=== PATIENT | female | born 1960 | race Caucasian/White ===

== ENCOUNTER → 2017-11-25 09:59 | Outpatient (CLI) | payer OTHER, SELFPAY ==
--- NOTE | 2017-11-25 10:04 | CDU_ITS ---
Reason For Study: bruit Rt. Velocities/BP Lt. Velocities/BP Prox CCA 113/16.4 cm/sec. Prox CCA 101/21.1 cm/sec. Mid CCA 113/18.8 cm/sec. Mid CCA 104/26.4 cm/sec. Dist CCA 104/21.7 cm/sec. Dist CCA 80.9/21.7 cm/sec. Prox ICA 64.5/17.6 cm/sec. Prox ICA 62.1/23.5 cm/sec. Mid ICA 79.7/23.5 cm/sec. Mid ICA 86.8/30.5 cm/sec. Dist ICA 68.6/22.3 cm/sec. Dist ICA 95.0/34.0 cm/sec. Rt. ICA/CCA = .7. Lt. ICA/CCA = .9. Prox ECA 123/9.97 cm/sec. Prox ECA 80.9/9.97 cm/sec. Rt. Vert. 56.9/15.8 cm/sec. Lt. Vert. 51.6/9.97 cm/sec. Right Extracranial There is intimal thickening but no significant atherosclerotic plaque noted in the right common carotid artery. There is intimal thickening but no significant atherosclerotic plaque noted in the right internal carotid artery. There is intimal thickening but no significant atherosclerotic plaque noted in the right external carotid artery. Antegrade flow is noted in the right vertebral artery. Left Extracranial There is intimal thickening but no significant atherosclerotic plaque noted in the left common carotid artery. There is intimal thickening but no significant atherosclerotic plaque noted in the left internal carotid artery. There is intimal thickening but no significant atherosclerotic plaque noted in the left external carotid artery. Antegrade flow is noted in the left vertebral artery. Procedure Carotid Duplex [id number]. The exam was diagnostic. Exam performed in department. Interpretation Summary Mild (<50%) stenosis right extracranial internal carotid. Mild (<50%) stenosis left extracranial internal carotid. Flow within the vertebral arteries is antegrade bilaterally. Ordering Physician: Gema Hadley Performed By: Aguila Cornejo RVT
== END ==
PROVIDERS: Family Provider Student in an Organized Health Care Education/Training Program; PCP Student in an Organized Health Care Education/Training Program; Visit Provider Physician Assistant Medical
DX: R09.89 Other specified symptoms and signs involving the circulatory and respiratory systems (principal)
CPT/HCPCS: 93880

== ENCOUNTER 2018-03-14 09:57 | Emergency (ER) | payer OTHER, SELFPAY ==
[2018-03-14 09:58] VITALS: BP 161/79; PULSE 64; RESP 18; TEMP 36.9; O2SAT 100; BMI 27.5
--- NOTE | 2018-03-14 10:15 | EKG12_ITS ---
Test Reason : CP Blood Pressure : / mmHG Vent. Rate : 059 BPM Atrial Rate : 059 BPM P-R Int : 160 ms QRS Dur : 130 ms QT Int : 454 ms P-R-T Axes : 052 016 002 degrees QTc Int : 449 ms Sinus bradycardia Right bundle branch block Abnormal ECG Confirmed by ESTEFANY LOMELI, REGINO ([id number]), staff editor TAMMIE MORSE ([id number]) on 03/18/2018 1:05:47 PM Referred By: NANCY Confirmed By:REGINO ALLISON MD
[2018-03-14 10:18] VITALS: BP 152/61; PULSE 60; RESP 12; O2SAT 100
--- NOTE | 2018-03-14 10:21 | ED.DCSUM_ITS ---
- ER Visit Summary Date of Service: 03/14/18 Chief Complaint: Chest pain History of Present Illness: The patient is a 57 F who presents with a central chest pressure. It is nonradiating. There is no significant shortness of breath or nausea vomiting. Patient states it has been constant since Wednesday. At times it seems to get worse. She states that she gets up and walks it feels better and occasionally when she lays down it gets worse. She has has had no recent infections viral or bacterial. She denies any fevers or rashes. Patient states that she had a [place] approximately 4 years ago and she had a stent placed. Patient follows cardiology fel[facility] with Dr. Kraft and she last saw him in October. Physical Examination: Afebrile vital signs are stable Gen: Well-nourished well-developed Head: Normocephalic atraumatic Eyes: Perrl EOMI ENT: TMs clear no rhinorrhea moist mucous membranes Neck: Supple no lymphadenopathy no JVD nontender CVS: Regular rate rhythm no murmurs normal S1-S2 Respiratory: No distress clear to auscultation bilaterally chest nontender Abdomen: Soft nontender nondistended normal bowel sounds no masses Back: Nontender Extremity: Nontender no edema Skin: Normal color no rash Neuro: alert orientated ?3 CN II-XII intact normal strength sensation reflexes gait cerebellar Psych: Normal affect normal mood Test Results: EKG shows a sinus bradycardia at a rate of 59 with a right bundle branch block this is unchanged from April 22, 2014. C chemistry showed a glucose of 130. Troponin d-dimer were negative. Chest x-ray negative. Emergency Department Course and Treatment: Spoke with Dr. Kraft and we arranged early follow-up for stress testing. Patient will return if worsening or concerns. Impression: 1. Chest pain This note was generated with [employer] dictation software. It may contain incorrect words, spelling, and punctuation that were not noted in review of the chart prior to signing ED Disposition - Plan for ED Patient: Chief Complaint: Chest Pain Instructions: ED Chest Pain Atypical Unkn Cause Referrals: Nathanael Cabral DO [Primary Care Provider] - 1 Week Beau Kraft MD [STAFF PHYSICIAN] - (call to arrange stress test)
[2018-03-14] MEDS: Aspirin 81 MG TAB.CHEW 324 MG PO (10:42)
[2018-03-14 10:52] LABS: Absolute Lymphocyte Count 0.91 X10^3/ul (0.83-4.51); Absolute Neutrophil Count 3.7 X10^3/uL (2.0-7.7); Basophil# 0.04 X10^3/uL; Basophil% 0.8 % (0-1); Eosinophil# 0.03 X10^3/uL; Eosinophils% 0.6 % (0-5); Hematocrit 41.8 % (37-47); Hemoglobin 14.4 g/dl (12.0-15.0); Lymphocyte # 0.91 X10^3/ul (4.0); Mean Corp Hgb Conc 34.4 g/gl (32-36); Mean Corpuscular Hgb 30.2 pg (27.0-32.0); Mean Corpuscular Volume 87.6 fL (81-99); Mean Platelet Vol. 10.3 fl (6.2-12.0); Monocyte# 0.34 X10^3/uL; Monocyte% 6.7 % (0-10); Neutrophil # 3.72 X10^3/uL (2.7-7.7); Neutrophil % 73.7 % (47-70); Platelet Count 138 K/mm3 (150-450); RBC Distribution Width CV 12.2 % (11.6-14.6); RBC Distribution Width SD 39.4 fl (35.1-43.9); Red Blood Count 4.77 M/mm3 (4.2-5.4); White Blood Count 5.1 K/mm3 (4.4-11.0)
[2018-03-14 10:53] LABS: POSITIVE COUNT NO; POSITIVE DIFFERENTIAL NO; POSITIVE MORPHOLOGY NO
--- NOTE | 2018-03-14 10:55 | RAD_ITS ---
STUDY: X-RAY CHEST REASON FOR EXAM: Female, 57 years old. Chest pain TECHNIQUE: Frontal and lateral views of the chest. COMPARISON: None. FINDINGS: The lungs are clear and expanded. There is no demonstrated pleural abnormality. Normal size heart. Normal mediastinum and chepe. Normal visualized pulmonary arteries. Normal visualized aortic arch and descending thoracic aorta. Normal visualized thoracic spine. Normal visualized ribs, clavicles, and shoulders. There is no demonstrated abnormality of the visualized soft tissue structures of the upper abdomen. RAD/Chest PA and Lateral IMPRESSION: Normal x-ray examination of the chest. Electronically Signed: Serenity Mayer MD at 11:44 EDT Tel , Service support ,
[2018-03-14 11:06] LABS: D-Dimer Quantitative (DVT/PE) < 0.27 FEU/ug/m (0.27-0.49)
[2018-03-14 11:09] LABS: Anion Gap 6 (5-15); BUN 8 mg/dL (7-18); Calcium,Total 9.3 mg/dL (8.5-10.1); Chloride 106 mmol/L (98-107); EST Glomerular Filtration Rate 77 mL/min (>60); Est Glom Filt Rate - Afr Amer 94 mL/min (>60); Estimated Creatinine Clearance 73.63 ml/min; Glucose 130 mg/dL (74-106); Sodium Level 139 mmol/L (136-145)
[2018-03-14 12:24] VITALS: BP 127/54; PULSE 58; RESP 16; O2SAT 99
[2018-03-14 12:54] VITALS: BP 122/56; PULSE 56; RESP 16; O2SAT 99
== END 2018-03-14 13:00 | disposition home or self-care (01) ==
PROVIDERS: Emergency Provider Emergency Medicine; Family Provider Student in an Organized Health Care Education/Training Program; PCP Student in an Organized Health Care Education/Training Program
DX: R07.9 Chest pain, unspecified (principal); R11.0 Nausea; I45.10 Unspecified right bundle-branch block; I25.10 Atherosclerotic heart disease of native coronary artery without angina pectoris; I25.2 Old myocardial infarction; I10 Essential (primary) hypertension; E78.00 Pure hypercholesterolemia, unspecified; Z95.5 Presence of coronary angioplasty implant and graft; Z79.82 Long term (current) use of aspirin; Z79.899 Other long term (current) drug therapy
CPT/HCPCS: 71046; 80048; 84484; 85025; 85379; 93005; 99285; A4216

== ENCOUNTER → 2018-03-22 06:29 | Outpatient (CLI) | payer OTHER, SELFPAY ==
--- NOTE | 2018-03-22 09:33 | STRESSREP ---
Stress Test Report Date: 03/22/2018 Procedure: Exercise tolerance test/imaging study Indications: Chest pain; CAD; PCI Consent: Per the patient Procedure: The patient exercised on a Nickolas protocol for 9 minutes completing Stage 3 achieving a peak heart rate of 157 bpm (97 % predicted maximal heart rate) with a peak blood pressure 180/80 mmHg and a peak MET capacity of 10 METs. The baseline ECG demonstrated normal sinus rhythm; right bundle branch block pattern. The peak exercise ECG demonstrated no obvious ECG changes. There was an isolated PVC during exercise and recovery. The functional capacity was considered good. There was no complaint of chest discomfort during exercise or recovery. The examination was discontinued secondary to dyspnea. Impression: 1. Technically adequate (percent predicted maximal heart rate greater than 85%) exercise tolerance test 2. Peak exercise ECG demonstrated no obvious ECG changes 3. There was an isolated PVC during exercise and recovery. 4. Nuclear images pending Myocardial perfusion imaging study: Technique: The patient was injected with 11.3 mCi of technetium 99m Cardiolite and subsequently rest SPECT Cardiolite nuclear imaging was obtained in the horizontal long, vertical long, and short axis views. The patient exercised on a Nickolas protocol for 9 minutes completing Stage 3 achieving a peak heart rate of 157 bpm (97 % predicted maximal heart rate) with a peak blood pressure 180/80 mmHg and a peak MET capacity of 10 METs. The patient was injected with 33.5 mCi of technetium 99m Cardiolite and subsequently stress SPECT Cardiolite nuclear imaging was obtained in the horizontal long, vertical long, and short axis views. A gated Cardiolite study at peak stress was obtained. Interpretation: Rest and stress SPECT Cardiolite nuclear imaging status post realignment, normalization, and attenuation correction, demonstrates the appearance of relative uniform tracer uptake and myocardial perfusion appearing within normal limits. There is end systolic thickening and brightening. The gated Cardiolite study demonstrates myocardial thickening and inward wall motion. The reported LVEF is 69 %. Impression: 1. Rest and stress SPECT Cardiolite nuclear imaging demonstrate relative uniform tracer uptake and myocardial perfusion appearing within normal limits. 2. The gated Cardiolite study reports an LVEF of 69 %. This note was generated with [employer] software. It may contain incorrect words, spelling, and punctuation that were not noted in checking the note before signing.
--- NOTE | 2018-03-22 09:36 | STRESSREP_ITS ---
Stress Test Report Date: 03/22/2018 Procedure: Exercise tolerance test/imaging study Indications: Chest pain; CAD; PCI Consent: Per the patient Procedure: The patient exercised on a Nickolas protocol for 9 minutes completing Stage 3 achieving a peak heart rate of 157 bpm (97 % predicted maximal heart rate) with a peak blood pressure 180/80 mmHg and a peak MET capacity of 10 METs. The baseline ECG demonstrated normal sinus rhythm; right bundle branch block pattern. The peak exercise ECG demonstrated no obvious ECG changes. There was an isolated PVC during exercise and recovery. The functional capacity was considered good. There was no complaint of chest discomfort during exercise or recovery. The examination was discontinued secondary to dyspnea. Impression: 1. Technically adequate (percent predicted maximal heart rate greater than 85% ) exercise tolerance test 2. Peak exercise ECG demonstrated no obvious ECG changes 3. There was an isolated PVC during exercise and recovery. 4. Nuclear images pending Myocardial perfusion imaging study: Technique: The patient was injected with 11.3 mCi of technetium 99m Cardiolite and subsequently rest SPECT Cardiolite nuclear imaging was obtained in the horizontal long, vertical long, and short axis views. The patient exercised on a Nickolas protocol for 9 minutes completing Stage 3 achieving a peak heart rate of 157 bpm (97 % predicted maximal heart rate) with a peak blood pressure 180/ 80 mmHg and a peak MET capacity of 10 METs. The patient was injected with 33.5 mCi of technetium 99m Cardiolite and subsequently stress SPECT Cardiolite nuclear imaging was obtained in the horizontal long, vertical long, and short axis views. A gated Cardiolite study at peak stress was obtained. Interpretation: Rest and stress SPECT Cardiolite nuclear imaging status post realignment, normalization, and attenuation correction, demonstrates the appearance of relative uniform tracer uptake and myocardial perfusion appearing within normal limits. There is end systolic thickening and brightening. The gated Cardiolite study demonstrates myocardial thickening and inward wall motion. The reported LVEF is 69 %. Impression: 1. Rest and stress SPECT Cardiolite nuclear imaging demonstrate relative uniform tracer uptake and myocardial perfusion appearing within normal limits. 2. The gated Cardiolite study reports an LVEF of 69 %. This note was generated with [employer] software. It may contain incorrect words, spelling, and punctuation that were not noted in checking the note before signing.
== END ==
PROVIDERS: Family Provider Student in an Organized Health Care Education/Training Program; PCP Student in an Organized Health Care Education/Training Program; Visit Provider Internal Medicine Cardiovascular Disease
DX: I25.10 Atherosclerotic heart disease of native coronary artery without angina pectoris (principal); Z98.61 Coronary angioplasty status; I25.5 Ischemic cardiomyopathy; E78.5 Hyperlipidemia, unspecified
CPT/HCPCS: 78452; 93017; A9500; A4216

== ENCOUNTER → 2020-04-16 09:15 | Outpatient (CLI) | payer OTHER, SELFPAY ==
[2020-04-16 11:11] LABS: AST(SGOT) 19 U/L (15-37); Alanine Aminotransfer ALT/SGPT 23 U/L (13-56); Albumin, Serum 4.2 g/dL (3.2-5.0); Alkaline Phosphatase 66 U/L (45-117); Bilirubin, Direct 0.43 mg/dL (0.00-0.30); Cholesterol 118 mg/dL (200); Globulin 3.5 g/dL (2.2-4.2); High Density Lipoprotein 34 mg/dL; Protein, Total 7.7 g/dL (6.4-8.2); Triglycerides 108 mg/dL; Very Low Density Lipoprotein 22 mg/dL (5-40)
== END ==
PROVIDERS: PCP Student in an Organized Health Care Education/Training Program; Referring Provider Nurse Practitioner Family; Visit Provider Nurse Practitioner Family
DX: E78.00 Pure hypercholesterolemia, unspecified (principal); E78.5 Hyperlipidemia, unspecified
CPT/HCPCS: 36415; 80061; 80076

== ENCOUNTER → 2020-05-07 13:49 | Outpatient (CLI) | payer OTHER, SELFPAY ==
[2020-04-18 09:59] VITALS: BMI 25.5
--- NOTE | 2020-05-07 13:49 | ECHOD_ITS ---
Reason For Study: Murmur Procedure This was a 2D Doppler, Color Flow transthoracic echocardiogram. The exam was of adequate technical quality. Exam performed in department. Left Ventricle Normal LV size. Left ventricular systolic function is normal. The estimated ejection fraction is 55 %. No evidence for diastolic dysfunction. No regional wall motion abnormalities noted. Right Ventricle Normal RV size. Normal systolic function. Atria The left atrium is mildly enlarged. Normal right atrium. No doppler evidence for ASD. Mitral Valve There is no mitral annular calcification. Mild diffuse mitral valve thickening. Mild-Moderate (1-2+) eccentric mitral valve insufficiency. Tricuspid Valve Normal tricuspid valve. Trivial tricuspid valve insufficiency. Aortic Valve Trisinus/trileaflet aortic valve. Mild diffuse aortic valve thickening. Pulmonic Valve The pulmonic valve is not well visualized. Trivial pulmonic valve insufficiency. Great Vessels Normal sized aortic root. Pericardium/Pleural No pericardial effusion. MMode/2D Measurements & Calculations LVIDd: 4.5 cm IVSd: 0.84 cm Ao root diam: 2.7 cm LVIDs: 3.0 cm LVPWd: 0.82 cm LA dimension: 4.1 cm RVDd: 2.9 cm FS: 32.4 % LAV(MOD-bp): 39.0 ml LA A4 area: 15.3 cm2 RA A4 area: 12.1 cm2 LAV(MOD-bp) Indexed: 21.2 ml/m2 LAV(MOD-sp2): 36.0 ml LAV(MOD-sp4): 40.7 ml Time Measurements MV dec time: 0.22 sec Doppler Measurements & Calculations MV E max herrera: 94.4 cm/sec Lat Peak E' Herrera: 9.2 cm/sec Med Peak E' Herrera: 8.3 cm/sec MV A max herrera: 79.3 cm/sec E/E' lat: 10.2 E/E' med: 11.4 MV E/A: 1.2 MV V2 max: 119.4 cm/sec MV P1/2t max herrera: 120.4 cm/sec Ao V2 max: 135.1 cm/sec MV max P.7 mmHg MV P1/2t: 71.9 msec Ao max P.3 mmHg MV V2 mean: 49.5 cm/sec MV dec slope: 490.4 cm/sec2 MV mean P.3 mmHg MVA(P1/2t): 3.1 cm2 MV V2 VTI: 39.7 cm LV V1 max: 132.6 cm/sec PA V2 max: 96.3 cm/sec LV V1 max P.0 mmHg Interpretation Summary Left ventricular systolic function is normal. The estimated ejection fraction is 55 %. The left atrium is mildly enlarged. Mild diffuse mitral valve thickening. Mild-Moderate (1-2+) eccentric mitral valve insufficiency. Trivial tricuspid valve insufficiency. Mild diffuse aortic valve thickening. Trivial pulmonic valve insufficiency. No evidence for diastolic dysfunction. Ordering Physician: Beau Kraft Referring Physician: Nathanael Cabral Performed By: Danilo Meyers RCS
== END ==
PROVIDERS: PCP Student in an Organized Health Care Education/Training Program; Referring Provider Internal Medicine Cardiovascular Disease; Visit Provider Internal Medicine Cardiovascular Disease
DX: I25.10 Atherosclerotic heart disease of native coronary artery without angina pectoris (principal); Z95.5 Presence of coronary angioplasty implant and graft; I25.5 Ischemic cardiomyopathy; E78.00 Pure hypercholesterolemia, unspecified
CPT/HCPCS: 93306

== ENCOUNTER → 2020-05-22 06:33 | Outpatient (CLI) | payer OTHER, SELFPAY ==
[2020-04-18 09:59] VITALS: BMI 25.5
[2020-05-22 07:35] LABS: AST(SGOT) 17 U/L (15-37); Alanine Aminotransfer ALT/SGPT 24 U/L (13-56); Alkaline Phosphatase 60 U/L (45-117); Bilirubin, Direct 0.41 mg/dL (0.00-0.30); Globulin 3.5 g/dL (2.2-4.2); Protein, Total 7.5 g/dL (6.4-8.2)
== END ==
PROVIDERS: PCP Student in an Organized Health Care Education/Training Program; Referring Provider Internal Medicine Cardiovascular Disease; Visit Provider Internal Medicine Cardiovascular Disease
DX: E78.00 Pure hypercholesterolemia, unspecified (principal); I25.10 Atherosclerotic heart disease of native coronary artery without angina pectoris; I25.5 Ischemic cardiomyopathy; Z95.5 Presence of coronary angioplasty implant and graft
CPT/HCPCS: 36415; 80076

== ENCOUNTER 2020-06-13 15:01 | Outpatient (RCR) | payer OTHER, SELFPAY ==
[2020-04-18 09:59] VITALS: BMI 25.5
== END 2020-06-22 23:59 ==
LOC: NS 15:01
PROVIDERS: PCP Student in an Organized Health Care Education/Training Program; Visit Provider Surgery
DX: Z71.3 Dietary counseling and surveillance (principal); E78.00 Pure hypercholesterolemia, unspecified
CPT/HCPCS: 97802

== ENCOUNTER 2020-07-04 15:59 | Outpatient (RCR) | payer OTHER, SELFPAY ==
[2020-04-18 09:59] VITALS: BMI 25.5
== END 2020-07-04 23:59 | disposition home or self-care (01) ==
LOC: NS 15:59
PROVIDERS: PCP Student in an Organized Health Care Education/Training Program; Visit Provider Surgery
DX: Z71.3 Dietary counseling and surveillance (principal); E78.00 Pure hypercholesterolemia, unspecified
CPT/HCPCS: 97803

== ENCOUNTER 2020-07-09 09:46 | Day surgery (SDC) | payer OTHER, SELFPAY ==
[2020-04-18 09:59] VITALS: BMI 25.5
--- NOTE | 2020-07-03 10:56 | EKG12_ITS ---
Test Reason : PRE Blood Pressure : / mmHG Vent. Rate : 050 BPM Atrial Rate : 050 BPM P-R Int : 170 ms QRS Dur : 132 ms QT Int : 482 ms P-R-T Axes : 053 055 014 degrees QTc Int : 439 ms Sinus bradycardia Non-specific intra-ventricular conduction block Abnormal ECG Confirmed by EDWAR LOMELI, GALINA ([id number]), school photograph editor TATYANA SANTOS ([id number]) on 07/08/2020 1:10:44 PM Referred By: Edilma Dwyer Confirmed By:TOBY VANN MD
[2020-07-03 12:05] LABS: Hematocrit 43.3 % (37-47); Hemoglobin 14.6 g/dL (12.0-15.0); Mean Corp Hgb Conc 33.7 g/dL (32-36); Mean Corpuscular Hgb 30.2 pg (27.0-32.0); Mean Corpuscular Volume 89.5 fL (81-99); Mean Platelet Vol. 11.1 fl (6.2-12.0); Platelet Count 181 K/mm3 (150-450); RBC Distribution Width CV 12.4 % (11.6-14.6); RBC Distribution Width SD 40.5 fl (35.1-43.9); Red Blood Count 4.84 M/mm3 (4.2-5.4); White Blood Count 5.3 K/mm3 (4.4-11.0)
[2020-07-03 12:56] LABS: Anion Gap 5 (5-15); BUN 14 mg/dL (7-18); BUN/Creat Ratio 18.5 RATIO (10-20); Calcium,Total 9.2 mg/dL (8.5-10.1); Chloride 106 mmol/L (98-107); Creatinine, Serum 0.76 mg/dL (0.55-1.02); EST Glomerular Filtration Rate 82 mL/min (>60); Est Glom Filt Rate - Afr Amer 100 mL/min (>60); Glucose 84 mg/dL (74-106); Potassium 3.7 mmol/L (3.5-5.1); Sodium Level 140 mmol/L (136-145)
--- NOTE | 2020-07-06 20:10 | HP.PCM_ITS ---
History and Physical Date of Admission: 07/09/20 HISTORY AND PHYSICAL ? Stacey Michelle 1960 ?? ? CHIEF COMPLAINT: Abdominal Pain ? HPI: The patient is a 59 year old female presents with complaint of intermittent epigastric and right upper quadrant abdominal pain. This has been noted for months. However, she states that the symptoms are worsening - becoming more severe and more frequent. Denies nausea/emesis. Denies fevers. Denies constipation or diarrhea. Patient is on Effient and aspirin for coronary artery stent placed 6 years ago. ? US 12/29/2019 IMPRESSION: Again seen is cholelithiasis with no other evidence of cholecystitis. There is gallbladder sludge. Complex hepatic cyst measuring up to 3.7 cm appears similar to the prior exam. The spleen is upper normal size. ? ? PAST MEDICAL HISTORY ? Acute gastritis without mention of hemorrhage ? ? Acute MA (HCC) 04/21/2014 ? Nausea and then chest pressure; sent from ER to [facility]; stent placed, ? Coronary artery disease ? ? Eczema 03/30/2011 ? Esophageal reflux ? ? Esophagitis, unspecified ? ? Excessive or frequent menstruation ? ? Heavy periods ? External hemorrhoids without mention of complication ? ? HYPERGLYCEMIA 03/15/2006 ? Internal hemorrhoids without mention of complication ? ? Intestinal or peritoneal adhesions with obstruction (postoperative) (postinfection) (HCC) ? ? Irritable bowel syndrome ? ? Low HDL (under 40) ? ? rest of lipids have been fine ? NOCTURNAL RESTLESS LEGS 04/19/2006 ? PAST SURGICAL HISTORY ? COLONOSCOP W/ OR W/O [facility] SPEC ? 03/06/1996 ? Colonoscopy ? COLONOSCOPY W/BX ? 07/03/11 ? CORONARY STENT EA VESSEL ? 03/2014 ? right coronary artery ? EGD W/O [facility] SPECIMEN W/BX ? 07/03/11 ? EGD W/O OR W/BRUSH/WASH ? 02/02/2020 ? EGD ? OFFICE ENDOMETRIAL ABLATION ? 07/31/2010 ? PAST SURGICAL HISTORY OF ? 03/01/2000 ? LEFT HEEL SPUR AND LIGAMENT SURGERY ? PAST SURGICAL HISTORY OF ? ? ? benign tumor removal right side- breast ? ? Medications ? sucralfate (CARAFATE) 1 gram tablet Take 1 tablet by mouth three times daily. (Patient not taking: Reported on 04/19/2020 ) ? famotidine (PEPCID) 20 mg tablet Take 1 tablet by mouth twice daily. ? nitroglycerin sublingual (NITROSTAT) 0.4 mg SL tablet Dissolve 1 tablet under the tongue every 5 minutes as needed. ? prasugrel (EFFIENT) 10 mg tab Take 1 tablet by mouth once daily. ? aspirin, enteric coated 81 mg EC tablet Take 1 tablet by mouth once daily. ? [place]-3 Fatty Acids (FISH OIL) 500 mg cap Take 1 capsule by mouth twice daily. (Patient taking differently: Take 1,000 mg by mouth twice daily. ) ? metoprolol tartrate, short acting, 25 mg tablet Take 0.5 tablets by mouth twice daily. ? lisinopril 2.5 mg tablet Take 1 tablet by mouth once daily. ? atorvastatin (LIPITOR) 40 mg tablet Take 1 tablet by mouth daily at bedtime. For cholesterol. ? ? ALLERGIES: Levaquin [Levofloxacin] ? PERSONAL HISTORY: Social History ?Tobacco Use ? Smoking status: Never Smoker ? Smokeless tobacco: Never Used Substance Use Topics ? Alcohol use: No ? ? Frequency: Never ? ? Drinks per session: Patient refused ? ? Binge frequency: Never ? Drug use: No ? FAMILY HISTORY ? Arthritis Mother ? ? Alzheimer's Disease Father ? ? Arthritis Maternal Grandmother ? ? Heart Maternal Grandmother ? ? CHF ? Cancer Maternal Grandfather ? ? ? REVIEW OF SYSTEMS: GENERAL:?Weight loss. Chronic myalgias. No fevers RESPIRATORY:?WILBER. No new or worsening cough, wheeze or SOB.? CARDIOVASCULAR:?CAD. HTN and HLD. No chest pain or JENKINS. GI:?The patient states that?her?appetite has been adequate.??She?does?get hungry. There has been some?nausea, no?vomiting. She?denies?dysphagia and denies?odynophagia. There has??been indigestion with?heartburn. There has partially?been regurgitation. Bowel habits have been regular. There?has not?been diarrhea. There has not?been constipation. The patient denies?rectal bleeding. There has not?been melena. Intermittent abdominal pain that is located in the?epigastric region and just to the?left?in the?upper?abdomen. BODY AND FENDER WORKER:?Negative for abnormal vaginal bleeding, abnormal vaginal discharge. PSYCH:?Negative for sleep disturbance, mood disorder and recent psychosocial stressors. HEMATOLOGY/LYMPHOLOGY?Positive for?bruises easily. On Effient and aspirin. ENDOCRINE:?History of elevated blood sugar without diabetes diagnosis NEURO:??No history of headaches, syncope, paralysis, seizures or tremors All other reviewed and negative other than HPI. ? ? PHYSICAL EXAMINATION: General: The patient is 59 year old female, well nourished, well hydrated in no acute distress. The patient is oriented to time, place, and person. VITALS: BP 134/76, Pulse 68, Temp 98.1 ?F, Resp 16, Wt 173 lb, Gen: A&O, NAD, non-toxic appearing, Pleasant, cooperative HEENT: NT/AC, PERRLA, EOMs intact b/l, nares clear and patent b/l, pharynx without erythema, exudate or lesions. Uvula midline. EACs without erythema or debris. TMs pearly allred with intact landmarks b/l. Neck: supple, No cervical LAD, no thyromegaly, no carotid bruits CV: RRR, normal S1 and S2, no murmurs, no gallops, no rubs, Pulses 2+ and symmetric in UE and LE b/l Lungs: normal respiratory effort, CTA b/l, no wheezing or rhonchi or rales Abd: soft, RUQ and epigastric TTP, ND, +BS, no hepatosplenomegaly MS: FROM all 4 extremities Neuro: CN II-XII intact b/l, strength 5/5 b/l UE and LE, DTRs 2/4 UE and LE, sensation intact. Skin: warm, dry, intact, No rashes or lesions on exposed skin. No edema of extremities noted ? IMPRESSION: right upper quadrant abdominal pain, cholelithiasis ? PLAN: I have discussed the above with the patient. I have offered laparoscopic cholecystectomy, possible cholangiograms She will need to be off Effient and aspirin for seven full days prior to procedure. I have explained the procedure to the patient. I have counseled the patient as to the risks of the procedure, including but not limited to: infection, bleeding, injury to any blood vessels/nerves, scar tissue, injury to any intrabdominal organs, injury to bowel/bladder, injury to the common bile duct/biliary tree, b ile leakage, intraabdominal abscess/bleeding, hernias at incisional sites, wound infections, complications of anesthesia, etc. ? the patient understands. The patient was offered a surgery/procedure. The provider and patient have discussed in detail the risk of exposure to and/or potential harm posed by the COVID-19 virus with having a surgery/procedure at this time versus the risk of delaying the surgery/procedure. It is not possible to know either the risk of delaying the surgery or procedure or chance of getting an infection with perfect accuracy, but a joint decision was made between the patient and the provider to proceed at this time with the scheduled surgery/procedure. The patient wishes to proceed. I have answered all questions to the patient?s satisfaction and the patient has no further questions. ? ? Diagnoses: (R10.11) RUQ pain (primary encounter diagnosis) (K80.20) Calculus of gallbladder without cholecystitis without obstruction (Z79.01) Chronic anticoagulation Return to Clinic: The patient is instructed to follow-up with me after the procedure.. ? Edilma Dwyer MD
[2020-07-09] VITALS (7 sets, daily range): BP systolic 92–143; BP diastolic 47–120; PULSE 54–66; RESP 14–16; TEMP 36–37; O2SAT 99–100; BMI 26.1
[2020-07-09] MEDS: Lactated Ringers 1,000 ML 75 ML IV (11:00)
[2020-07-09] MEDS: Cefazolin 2 GM in 0.9% Normal Saline 100 ML IV (11:16)
--- NOTE | 2020-07-09 11:20 | RAD_ITS ---
STUDY: INTRAOPERATIVE CHOLANGIOGRAM. REASON FOR EXAM: Female, 60 years old. ABD PAIN. Laparoscopic cholecystectomy. FLUOROSCOPY TIME (if supplied): ( 3.3 seconds ) minutes/seconds. 2 images were obtained. TECHNIQUE: An intraoperative cholangiogram was performed by the surgeon. Contrast was injected. Imaging was obtained. COMPARISON: None. FINDINGS: The visualized intrahepatic biliary ducts are unremarkable. The common bile duct is not dilated. No intraluminal filling defect is seen. There is free flow of contrast into the duodenum. RAD/Cholangiogram/ O R,Initial IMPRESSION: Unremarkable intraoperative cholangiogram. Electronically Signed: Duran Tinoco, at 14:36 EST , Service support ,
--- NOTE | 2020-07-09 11:21 | PCM.DC.GB ---
Discharge Diet: No Restrictions - avoid carbonated beverages as it will cause bloating and make you feel uncomfortable after surery, drink plenty of liquids Discharge Activity: Return to Normal Activity, May not drive while taking narcotic pain medications. Lifting Restrictions: no lifting greater than 10 pounds for two weeks Call your doctor if your incision/area has: Continuous Slow Oozing, Foul Smelling Discharge Call your doctor if you observe: Fever of 101 or Higher Additional Instructions: Recommended pain control regimen - May take 600 mg ibuprofen (Motrin) and then in 3-4 hours, may take 650 mg acetaminophen (Tylenol), then in 3-4 hours may take 600 mg ibuprofen, then in 3-4 hours may take 650 mg acetaminophen and so on for 2-3 days May take narcotic pain medication for pain that is not controlled by above and at night for comfort through the night Leave dressings in place May get dressings wet in shower - do not scrub in the area and pat dry Do not soak - no tub baths/swimming If dressing appears to be soiled/open at one end/no longer sealed - may remove dressing but leave site uncovered (do not replace with any type of dressing) - leave steristrips in place - may get wet but do not scrub in the area and pat dry Allergies/Adverse Reactions: Allergies levofloxacin Adverse Reaction (Severe, Verified 06/28/20 14:14) muscle pain Medications to take at Discharge aspirin 81 mg tablet,delayed release 81 mg PO DAILY 11/13/17 nitroglycerin 0.4 mg sublingual tablet 0.4 mg SUBLINGUAL Q5M PRN 11/15/17 [place]-3 Fatty Acids/Fish Oil [Fish Oil 1,000 mg Capsule] 1,000 mg PO BID 03/14/18 famotidine 20 mg tablet 20 mg PO QHS 04/18/20 Atorvastatin Calcium [Lipitor] 40 mg PO QHS 06/28/20 Lisinopril 2.5 mg PO QDAY 06/28/20 Metoprolol Tartrate 12.5 mg PO BID 06/28/20 Prasugrel HCl 10 mg PO QDAY 06/28/20 Hydrocodone Bitart/Apap 5-325 [[place] 5MG-325MG] 1 tablet PO Q8H PRN PRN 5 Days #15 tablet 07/09/20 The following prescriptions were given: Hydrocodone Bitart/Apap 5-325 [[place] 5MG-325MG] 1 tablet PO Q8H PRN PRN 5 Days #15 tablet PRN Reason: Pain Transmission Status: Received by [id number] Primary Care Physician: Nathanael Cabral DO [Primary Care Provider] - Test Results: Test results from this visit will be discussed in further detail at your follow-up appointment, if applicable. Please Follow Up With: Edilma Dwyer MD - call When: to be seen in 7-10 days, please call for date and time, thank you
--- NOTE | 2020-07-09 11:24 | OP.PCM_ITS ---
Report of Operation Date of Procedure: 07/09/20 Pre-Operative Diagnosis: cholelithiasis, RUQ abdominal pain Post-Operative Diagnosis: same Surgery/Procedure Performed:: laparoscopic cholecystectomy with cholangiograms Description of Surgical Findings:: normal cholangiograms soft sugar supervisor: Heaven Weiss Type of Anesthesia:: General Anesthesiologist: Trey Ball Specimen's removed: gallbladder and contents Estimated Blood Loss (mL): <5 ml Fluids Replaced: 1300 ml R Description of Procedure: After informed consent was given, the patient was brought to the Operating Room. Appropriate time out protocol was followed. The patient was placed in the supine position. The patient was then placed under general endotracheal anesthesia by the anesthesia provider. The abdomen was then prepped with a sterile surgical skin preparation and sterile surgical drapes were placed. The infraumbilical skin fold was grasped with penetrating clamps and the skin and subcutaneous tissues were infiltrated with 0.25% marcaine with epinephrine. A skin incision was then made with a 15 blade scalpel. The anterior abdominal wall was elevated and a Veress needle was carefully inserted into the intraabdominal cavity. It was checked to be in the proper position with a nor mal saline drop test. A CO2 pneumoperitoneum was then created. Once this was achieved, then the Veress needle was removed and an 11mm trocar was placed in its stead. A 10mm laparoscope was then inserted into the trocar and careful attention was directed to the intraabdominal contents. There was no evidence of injury to any intraabdominal organs from insertion of the Veress needle or the trocar. Under direct visualization, a 5mm subxiphoid trocar and two lateral 5mm right subcostal trocars were placed. The skin and subcutaneous tissues at these sites were infiltrated with 0.25% marcaine with epinephrine prior to placement of these trocars. Attention was then directed to the right upper quadrant of the abdomen. Graspers were placed in the lateral trocars to grasp the distal aspect of the gallbladder and direct it cephalad and to grasp the gallbladder at Reese?s pouch and direct it laterally. Dissection then began on the proximal gallbladder continuing down to the area of the triangle of Calot to bluntly dissect out the cystic duct. The neck of the gallbladder was identified and blunt dissection continued to dissect out a segment of the cystic duct. A clip was then placed on the neck of the gallbladder. A small ductotomy was then made. A Ranfac catheter was brought in through a separate skin incision and placed into the cystic duct. An intraoperative cholangiogram was performed under fluoroscopy. The xray revealed no lesions in the common bile duct, arborization of the biliary tree, and good flow into the duodenum. The Ranfac catheter was then removed and two clips were placed proximal to the ductotomy and the cystic duct was then transected. The cystic artery was visualized and bluntly isolated and then two clips were placed proximally and one clip distally and then it was transected between the proximal and distal clips. The gallbladder was then from the liver bed using electrocautery. Once from the liver bed, it was brought out via the umbilical port in an Endobag. It was then forwarded to pathology for analysis. The liver bed was carefully examined. There was no evidence of bile leakage or bleeding. The cystic duct stump and cystic artery stump had their clips intact and there was no evidence of bile leakage or bleeding. The remainder of the abdomen was grossly normal. The CO2 was released and all trocars removed intact. The periumbilical fascia was approximated with a [id number] 0 vicryl suture. All skin incision were closed with 4-0 monocryl in a subdermal fashion. Cavilol and Steristrips were used to reinforce the skin closure. Sterile dressings were applied to all wounds. Sponge, needle and instrument count was verified and correct at time of skin closure. The patient was extubated and brought to the Recovery Room in stable condition. - Complications none noted - Admit VTE Documentation VTE Present on Admission: Yes VTE Mechan Device Prophylaxis: SCD's
--- NOTE | 2020-07-09 11:30 | GALL_PTH ---
PATIENT: EVELIO VELEZ LOC: [facility] – [place] U#:[id number] AGE/SX: 60/F ROOM: RE07/09/[address]: Dr. Edilma Dwyer MD : 1960 BED: DIS: 07/09/2020 SPEC #: [id number] RECD: 07/10/20 07:30 STATUS: ALVIN YINKA #: [id number] ROMEO: 07/09/20 11:[address]: Edilma Dwyer DEPT: SURGICAL PATHOLOGY RECD BY: Meliza Rebollar ENTERED: 07/10/20 09:00 SP TYPE: ELAINA MORALES DR: Dr. Nathanael Cabral DO Tissues: Gallbladder, NOS Procedures: Surgery Specimen Level III HEADER OPERATION: Laparoscopic cholecystectomy with IOC PRE-OP DIAGNOSIS: Right upper quadrant abdominal pain, cholelithiasis TISSUE SUBMITTED: Gallbladder MICROSCOPIC DIAGNOSIS Gallbladder, cholecystectomy: Chronic cholecystitis and cholelithiasis. AM:donnie 11/19/20 MICROSCOPIC DESCRIPTION Slides are reviewed. GROSS DESCRIPTION Received is one container labeled with the patient's name and designated gallbladder. The specimen consists of a gallbladder measuring 7.5 x 3.2 x 2.8 cm. The external surface is smooth and glistening. Focally, it is granular, hemorrhagic and contains cautery artifact. The lumen of the gallbladder contains yellow-green mucoid bile and multiple black calculi ranging in size <0.1 to 0.5 cm. The mucosa is bile-stained and without any mass lesions. The gallbladder wall averages 0.1 cm in thickness and is free of mass lesions. Salon Designer sections of the gallbladder and the cystic duct at margin of resection are submitted in one cassette. / AM:donnie 07/10/20 TC:3 CPT: 08195
[2020-07-09] MEDS: Bupiv/Epi 0.25% 30 ML Vial (12:36)
== END 2020-07-09 17:24 | disposition home or self-care (01) ==
LOC: SDC 09:46 → AC 09:46
PROVIDERS: Anesthesiology; PCP Student in an Organized Health Care Education/Training Program; Referring Provider Surgery; Visit Provider Surgery
PROC: (CPT 47610; principal; 2020-07-09 11:10)
DX: K80.10 Calculus of gallbladder with chronic cholecystitis without obstruction (principal); K21.9 Gastro-esophageal reflux disease without esophagitis; I10 Essential (primary) hypertension; I25.2 Old myocardial infarction; E78.00 Pure hypercholesterolemia, unspecified; Z78.0 Asymptomatic menopausal state; Z87.19 Personal history of other diseases of the digestive system; Z95.5 Presence of coronary angioplasty implant and graft; Z90.49 Acquired absence of other specified parts of digestive tract; Z79.82 Long term (current) use of aspirin; Z79.01 Long term (current) use of anticoagulants; Z79.899 Other long term (current) drug therapy
CPT/HCPCS: 00790; 47563; 36415; 74300; 76000; 80048; 85027; 87426; 88304; 93005; C9803; J7120; A4216; J2405

== ENCOUNTER → 2021-04-18 09:52 | Outpatient (CLI) | payer OTHER, SELFPAY ==
[2021-04-18 11:02] LABS: AST(SGOT) 22 U/L (15-37); Alanine Aminotransfer ALT/SGPT 32 U/L (13-56); Albumin, Serum 4.1 g/dL (3.2-5.0); Alkaline Phosphatase 65 U/L (45-117); Bilirubin, Direct 0.36 mg/dL (0.00-0.30); Cholesterol 104 mg/dL (200); Globulin 3.7 g/dL (2.2-4.2); High Density Lipoprotein 35 mg/dL; Protein, Total 7.8 g/dL (6.4-8.2); Triglycerides 100 mg/dL; Very Low Density Lipoprotein 20 mg/dL (5-40)
[2021-04-18 11:03] LABS: Vitamin D,25 Hydroxy 32.7 ng/mL
== END ==
PROVIDERS: PCP Student in an Organized Health Care Education/Training Program; Referring Provider Nurse Practitioner Family; Visit Provider Nurse Practitioner Family
DX: E55.9 Vitamin D deficiency, unspecified (principal); S92.919A Unspecified fracture of unspecified toe(s), initial encounter for closed fracture; E78.00 Pure hypercholesterolemia, unspecified
CPT/HCPCS: 36415; 80061; 80076; 82306

== ENCOUNTER 2021-09-13 09:12 | Emergency (ER) | payer OTHER, SELFPAY ==
[2021-09-13 09:13] VITALS: BP 147/74; PULSE 75; RESP 18; TEMP 36.3; O2SAT 99; BMI 30.9
--- NOTE | 2021-09-13 09:22 | EKG12_ITS ---
Test Reason : CP Blood Pressure : / mmHG Vent. Rate : 074 BPM Atrial Rate : 074 BPM P-R Int : 156 ms QRS Dur : 132 ms QT Int : 444 ms P-R-T Axes : 038 015 -13 degrees QTc Int : 492 ms Normal sinus rhythm Right bundle branch block Inferior infarct , age undetermined Abnormal ECG Confirmed by EDWAR LOMELI, GALINA ([id number]), editor news JUAN MANUEL IRCCI ([id number]) on 09/15/2021 10:48:04 A M Referred By: ANNMARIE/SAMINA Confirmed By:TOBY VANN MD
--- NOTE | 2021-09-13 09:22 | RAD_ITS ---
STUDY: X-RAY CHEST REASON FOR EXAM: Female, 61 years old. chest pain TECHNIQUE: Single AP portable view of the chest. COMPARISON: 03/14/2018 FINDINGS: The lungs are clear and expanded. There is no demonstrated pleural abnormality. Normal size heart. Normal mediastinum and chepe. Normal visualized pulmonary arteries. Normal visualized aortic arch and descending thoracic aorta. Normal visualized thoracic spine. Normal visualized ribs, clavicles, and shoulders. There is no demonstrated abnormality of the visualized soft tissue structures of the upper abdomen. RAD/Chest 1 View (Portable) IMPRESSION: Normal x-ray examination of the chest. Electronically Signed: Tushar Franco MD at 9:57 EST Tel , Service support ,
--- NOTE | 2021-09-13 09:25 | EDS_ITS ---
HPI History of Present Illness Chief Complaint: Chest Pain Detail of Chief Complaint: Midsternal chest pressure Onset/Context/Timing Onset: Yesterday (While sitting at work) Activity at onset: sudden and rest Timing: Continuous and Waxes and wanes Quality: Positive for Heaviness Location: Substernal (Took 1 nitro at 0845 with no improvement. Nitro did burn under the tongue) Current Severity: Mild Maximum Severity: Moderate Worsened By: - (Better upright position versus being supine or sitting); Not Worsened By Exertion, Movement of Arm, Movement of Torso, Palpation, Breathing and Coughing Relieved By: Nothing Associated Symptoms: Positive for Acid Reflux (History of acid reflux. Took Prevacid with no improvement.); Negative for Nausea, Vomiting, Diaphoresis, Dyspnea, Cough, Fever, Lightheadedness and Palpitations Narrative Narrative: Patient is a 61-year-old woman with history of coronary disease and placement of stent proximal right coronary artery. Per old records there is history of ischemic cardiomyopathy. She is on medication for cholesterol and hypertension even though she denies history of. She states this pain started while at work. It is substernal and described as a pressure sensation. There is no radiation or associated symptoms. The only thing that she is noted that makes it better is upright position. She is status post cholecystectomy. She denies intolerance to greasy or fried foods. She denies history of PE or DVT. She denies leg pain, swelling discoloration. She sleeps with 2 pillows. This is her norm. She denies black or maroon-colored stool. She denies pain with breathing. Prior Similar Symptoms: Yes and - (Unable to determine whether this is cardiac or gastric per patient) Recent Illness/Hospitalization: No CVD Risk Factors: Positive for Hypertension and Hypercholesterolemia; Negative for Diabetes, Family History 1' </=55 and Smoking PE Risk Factors: Negative for Recent Travel/Surgery, Recent Immobilization, Prior DVT or PE, Cancer and OCP + Smoking + >/=35 TAD Risk Factors: Positive for Hypertension; Negative for Marfan's Syndrome and Family History [facility] Medical History Acute myocardial infarction of inferoposterior wall, subsequent episode of care Atherosclerotic heart disease of [place] coronary artery without angina pectoris CAD (coronary artery disease) (~2013) Cardiomyopathy, ischemic Mitral valve insufficiency Presence of stent in coronary artery (~04/22/14) Pure hypercholesterolemia Home Medications aspirin 81 mg tablet,delayed release 81 mg PO DAILY 11/13/17 [History Last Taken 07/05/20 08:00] omega-3 fatty acids-fish oil 1,000 mg PO BID 03/14/18 [History Last Taken 07/05/20 08:00] famotidine 20 mg tablet 20 mg PO QHS 04/18/20 [History Last Taken Unknown] atorvastatin 40 mg tablet 40 mg PO QHS #90 tab 10/03/20 [Rx Last Taken Unknown] lisinopril 2.5 mg tablet 2.5 mg PO QDAY #90 tab 10/03/20 [Rx Last Taken Unknown] metoprolol tartrate 25 mg tablet 12.5 mg PO BID #30 tab 10/24/20 [Rx Last Taken Unknown] nitroglycerin 0.4 mg sublingual tablet 0.4 mg SUBLINGUAL Q5M PRN #25 tab 10/28/20 [Rx Last Taken Unknown] cholecalciferol (vitamin D3) 25 mcg (1,000 unit) tablet 25 mcg PO DAILY 04/21/21 [History Last Taken Unknown] dicyclomine 10 mg capsule 10 mg PO TID PRN 04/21/21 [History Last Taken Unknown] Allergy/AdvReac Type Severity Reaction Status Date / Time levofloxacin AdvReac Severe muscle pain Verified 09/13/21 09:17 Family History Father Hypertension Mother HLD (hyperlipidemia) Surgical History Postsurgical percutaneous transluminal coronary angioplasty (PTCA) status Presence of coronary angioplasty implant and graft (~04/22/14) Social History (Updated 09/13/21 @ 09:[address] Haresh Garcia MD) household members: none Smoking Status: Never smoker alcohol intake: never substance use type: does not use caffeine: Yes Type: other what type of physical activity do you participate in: walking, bicycling and other details: Tredmill frequency: 3-4 times per week duration: 30-45 minutes/day seatbelt use: always do you feel safe at home: Yes ROS ROS ED Constitutional Constitutional ED: Denies chills, fever(s), subjective or sweats Eyes Eyes: Denies blurry vision, change in vision or diplopia ENT ENT ED: Denies ear pain, rhinorrhea or sore throat Cardiovascular Cardiovascular: Reports as per HPI; Denies orthopnea or paroxysmal nocturnal dyspnea Respiratory/Chest Respiratory/Chest: Denies cough, dyspnea, dyspnea on exertion, orthopnea, paroxysmal nocturnal dyspnea or sputum Gastrointestinal Gastrointestinal: Denies abdominal pain, constipation, diarrhea, nausea or vomiting Genitourinary Genitourinary ED: Denies dysuria, hematuria or urinary frequency Musculoskeletal Musculoskeletal: Denies arthralgias, myalgias or neck pain Integumentary Denies rash Neurologic Neurologic: Denies headache(s) or weakness Hematologic/Lymphatic Hematologic/Lymphatic: Denies easy bleeding or easy bruising EXAM Physical Exam Const Vital Signs: 09/13/21 09:13 09/13/21 09:38 09/13/21 10:51 Temperature 97.4 F L Temperature Source Temporal Pulse Rate 75 60 Respiratory Rate 18 16 Blood Pressure 147/74 H 138/61 H Blood Pressure Mean 98 86 Pulse Ox 99 99 Oxygen Delivery Method Room Air Room Air Room Air 09/13/21 11:45 09/13/21 12:54 Temperature Temperature Source Pulse Rate 60 63 Respiratory Rate 12 15 Blood Pressure 134/59 H 131/62 H Blood Pressure Mean 84 85 Pulse Ox 100 100 Oxygen Delivery Method Room Air Room Air Positive well nourished, well developed and obese General Appearance ED: well developed and NAD; Negative for pallor Nutritional Appearance: obese HEENT Reports moist mucous membranes HEENT Narrative: Ears normal. normocephalic and atraumatic Eyes PERRL and EOMs intact bilaterally General Eye ED: Negative for pale conjunctiva or scleral icterus Neck no lymphadenopathy, supple and no JVD General: Negative for tenderness Chest Wall inspection of chest normal and palpation of chest normal Resp normal respiratory effort and clear to auscultation bilaterally Effort and Inspection: respiratory distress Cardio regular rate, regular rhythm, S1 normal heart sound, S2 normal heart sound and no murmurs GI normal to inspection, nondistended, normoactive bowel sounds, soft to palpation, non-tender and non-distended Back/Spine no CVA tenderness; Negative for no thoracic nor lumbar tenderness Extremity normal to inspection General Extremety ED: Yes edema; Negative for pulses abnormal or tenderness General Extremity: edema; Negative for pulses abnormal Neuro oriented x3 Sensorium / Orientation: awake and alert Psych mental status grossly normal Skin no rashes or lesions noted and no wounds General Skin Exam: Negative for jaundice or pallor Heart Score History: Slightly/Non-Suspicious ECG: Nonspecific Repolarization Age: >45 - <65 years Risk Factors: >/= 3 Risk Factors or History of CAD Score: 4 MDM MDM MDM Narrative Medical decision making narrative: With report of improvement in upright position versus sitting or supine this may represent GI versus cardiac. Patient was treated with GI cocktail. EKG was obtained including chest x-ray and appropriate blood work. Will reassess in 30 to 60 minutes. Lab Data Attestation: I reviewed the patient's lab results. Lab results narrative: First troponin is less than 7. Which is normal. Will perform 2-hour delta. CBC is. Basic metabolic panels are marked for glucose of 153. Labs: Laboratory Results - last 24 hr 09/13/21 09/13/21 09/13/21 09:20 09:20 11:20 WBC 6.2 RBC 4.92 Hgb 14.8 Hct 43.9 MCV 89.2 MCH 30.1 MCHC 33.7 RDW Std Deviation 40.5 RDW Coeff of Lili 12.4 Plt Count 206 MPV 10.5 Immature Gran % (Auto) 0.200 Neut % (Auto) 68.0 Lymph % (Auto) 21.8 [place] % (Auto) 8.4 Eos % (Auto) 0.8 Baso % (Auto) 0.8 Absolute Neuts (auto) 4.2 Absolute Lymphs (auto) 1.34 Nucleated RBC % 0 Sodium 142 Potassium 3.3 L Chloride 106 Carbon Dioxide 29.0 Anion Gap 7 BUN 9 Creatinine 0.76 Estim Creat Clear Calc 73.68 Est GFR (MDRD) Af Amer 98 Est GFR (MDRD) Non-Af 81 BUN/Creatinine Ratio 11.8 Glucose 153 H Calcium 9.7 Troponin I High Sens 6 7 Second troponin is 7 with a delta of 1. Per algorithm 100% negative predictive value for cardiac. Will discharge to home. Patient's been informed of results. She is given opportunity ask questions. Questions were answered to her satisfaction. She was discharged home. She states she has a follow-up appoint with Dr. Kraft. Radiography Chest X-Ray - ED: 1 View and Read by ED Physician (Single view portable chest x- ray was normal. Cardiac silhouette size normal. Mediastinum normal. Lung parenchyma normal. [place] structures are unremarkable. Chest x-ray was interpreted by me at 0953) Diagnostic Testing: Clinical Impression(s) from Imaging Studies Chest X-Ray 09/13/21 09:22 IMPRESSION: Normal x-ray examination of the chest. Electronically Signed: Tushar Franco MD at 9:57 EST Tel , Service support , EKG Initial EKG: Attestation: I personally reviewed and interpreted this EKG as follows: Interpretation: Sinus Rhythm (Ventricular rate of 74. [place] interval is 156 ms. QRS duration is prolonged at 132 ms and has morphology of right bundle branch block. QT interval is 444 ms. [place] is normal. There is no acute ischemic changes noted.) Discharge Plan Triage Chief Complaint: Chest Pain ED Provider: Haresh Garcia Dx/Rx/DC Orders Clinical Impression: Discomfort in chest, Chest pain due to GERD Instructions: ED Chest Pain, Noncardiac, ED GERD (Adult) Prescriptions: No Action aspirin [Adult Low Dose Aspirin] 81 mg tablet,delayed release (DR/EC) 81 mg PO DAILY RF: 0 famotidine [Pepcid AC] 20 mg tablet 20 mg PO QHS RF: 0 cholecalciferol (vitamin D3) 25 mcg (1,000 unit) tablet 25 mcg PO DAILY RF: 0 dicyclomine 10 mg capsule 10 mg PO TID PRNRF: 0 omega-3 fatty acids-fish oil 1 EACH capsule 1,000 mg PO BID RF: 0 atorvastatin 40 mg tablet 40 mg PO QHS Qty: 90 RF: 3 lisinopril 2.5 mg tablet 2.5 mg PO QDAY Qty: 90 RF: 3 metoprolol tartrate 25 mg tablet 12.5 mg PO BID Qty: 30 RF: 11 nitroglycerin [Nitrostat] 0.4 mg tablet, sublingual 0.4 mg SUBLINGUAL Q5M PRN (Reason: CHEST PAIN) Qty: 25 RF: 3 Primary Care Provider: Nathanael Cabral Referrals: Nathanael Cabral DO [Primary Care Provider] - 3-5 Days if not improving Beau Kraft MD [STAFF PHYSICIAN] - Keep Olivia appointment Disposition Disposition: Home, Self Care
[2021-09-13] MEDS: Aspirin 81 MG TAB.CHEW 324 MG PO (09:35)
[2021-09-13] MEDS: Mag Hydrox/Al Hydrox/Simeth 30 ML UDC PO (09:36)
[2021-09-13 09:48] LABS: Anion Gap 7 (5-15); BUN 9 mg/dL (7-18); BUN/Creat Ratio 11.8 RATIO (10-20); Calcium,Total 9.7 mg/dL (8.5-10.1); Chloride 106 mmol/L (98-107); Creatinine, Serum 0.76 mg/dL (0.55-1.02); EST Glomerular Filtration Rate 81 mL/min (>60); Est Glom Filt Rate - Afr Amer 98 mL/min (>60); Estimated Creatinine Clearance 73.68 ml/min; Glucose 153 mg/dL (74-106); Potassium 3.3 mmol/L (3.5-5.1); Sodium Level 142 mmol/L (136-145); Troponin-I HS 6 pg/mL (3.0-54.0)
[2021-09-13 09:50] LABS: Absolute Lymphocyte Count 1.34 X10^3/uL (0.83-4.51); Absolute Neutrophil Count 4.2 X10^3/uL (2.0-7.7); Basophil# 0.05 X10^3/uL; Basophil% 0.8 % (0-1); Eosinophil# 0.05 X10^3/uL; Eosinophils% 0.8 % (0-5); Hematocrit 43.9 % (37-47); Hemoglobin 14.8 g/dL (12.0-15.0); Lymphocyte # 1.34 X10^3/ul (0.83-4.51); Lymphocyte % 21.8 % (19-41); Mean Corp Hgb Conc 33.7 g/dL (32-36); Mean Corpuscular Hgb 30.1 pg (27.0-32.0); Mean Corpuscular Volume 89.2 fL (81-99); Mean Platelet Vol. 10.5 fl (6.2-12.0); Monocyte# 0.52 X10^3/uL; Monocyte% 8.4 % (0-10); NRBC Flagged by Analyzer 0 % (0-5); Neutrophil # 4.19 X10^3/uL (2.7-7.7); Platelet Count 206 K/mm3 (150-450); RBC Distribution Width CV 12.4 % (11.6-14.6); RBC Distribution Width SD 40.5 fl (35.1-43.9); Red Blood Count 4.92 M/mm3 (4.2-5.4); White Blood Count 6.2 K/mm3 (4.4-11.0)
[2021-09-13 10:51] VITALS: BP 138/61; PULSE 60; RESP 16; O2SAT 99
[2021-09-13 11:45] VITALS: BP 134/59; PULSE 60; RESP 12; O2SAT 100
[2021-09-13 11:59] LABS: Troponin-I HS 7 pg/mL (3.0-54.0)
[2021-09-13] MEDS: Famotidine 200 MG/20 ML MDV 20 MG in 0.9% Normal Saline (Pres. free 8 ML 300 MG IV (12:52)
[2021-09-13 12:54] VITALS: BP 131/62; PULSE 63; RESP 15; O2SAT 100
== END 2021-09-13 13:08 | disposition home or self-care (01) ==
PROVIDERS: Emergency Provider Emergency Medicine; PCP Student in an Organized Health Care Education/Training Program; Visit Provider Emergency Medicine
DX: R07.89 Other chest pain (principal); K21.9 Gastro-esophageal reflux disease without esophagitis; I25.2 Old myocardial infarction; I25.10 Atherosclerotic heart disease of native coronary artery without angina pectoris; E66.9 Obesity, unspecified; Z95.5 Presence of coronary angioplasty implant and graft
CPT/HCPCS: 71045; 80048; 84484; 85025; 93005; 96374; 99285; A4216; J3490

== ENCOUNTER → 2022-02-17 | Outpatient (CLI) | payer OTHER, SELFPAY ==
--- NOTE | 2022-02-17 13:02 | ECHOD_ITS ---
Reason For Study: MURMUR Procedure This was a 2D Doppler, Color Flow transthoracic echocardiogram. The exam was of adequate technical quality. Exam performed in department. Left Ventricle Normal LV size. Left ventricular systolic function is normal. The estimated ejection fraction is 60 %. Diastolic function is indeterminate. No regional wall motion abnormalities noted. Right Ventricle Normal RV size. A moderator band is seen in the right ventricle. Normal systolic function. Atria Normal left atrium. Normal right atrium. No doppler evidence for ASD. Mitral Valve There is no mitral annular calcification. Mild diffuse mitral valve thickening. Mild focal mitral valve calcification of the anterior leaflet. Mild-Moderate (1-2+) mitral valve insufficiency. Tricuspid Valve Normal tricuspid valve. Mild tricuspid valve insufficiency. Unable to estimate RV systolic pressure due to insufficient tricuspid regurgitant envelope. Aortic Valve Trisinus/trileaflet aortic valve. Mild diffuse aortic valve thickening. Pulmonic Valve The pulmonic valve is not well visualized. Trivial pulmonic valve insufficiency. Great Vessels Normal sized aortic root. MMode/2D Measurements & Calculations LVIDd: 4.3 cm IVSd: 0.76 cm Ao root diam: 3.0 cm LVIDs: 2.9 cm LVPWd: 0.81 cm RVDd: 3.4 cm FS: 32.0 % LAV(MOD-bp): 38.1 ml LVAd ap4: 32.5 cm2 SV(MOD-sp4): 72.2 ml LAV(MOD-bp) Indexed: 19.0 ml/m2 LVLd ap4: 7.7 cm LAV(MOD-sp2): 36.6 ml EDV(MOD-sp4): 110.2 ml LAV(MOD-sp4): 36.2 ml EDV(sp4-el): 117.1 ml LVAs ap4: 17.1 cm2 LVLs ap4: 6.3 cm ESV(MOD-sp4): 38.0 ml ESV(sp4-el): 39.9 ml EF(MOD-sp4): 65.6 % EF(sp4-el): 66.0 % SV(sp4-el): 77.3 ml LA dimension(2D): 4.0 cm LA A4 area: 14.3 cm2 RA A4 area: 15.3 cm2 Time Measurements MV dec time: 0.21 sec Doppler Measurements & Calculations MV E max herrera: 102.0 cm/sec Lat Peak E' Herrera: 7.8 cm/sec Med Peak E' Herrera: 7.2 cm/sec MV A max herrera: 98.2 cm/sec E/E' lat: 13.0 E/E' med: 14.2 MV E/A: 1.0 Ao V2 max: 144.9 cm/sec LV V1 max: 120.6 cm/sec PA V2 max: 96.1 cm/sec Ao max P.4 mmHg LV V1 max P.8 mmHg ECHO/Echo Complete Interpretation Summary Left ventricular systolic function is normal. The estimated ejection fraction is 60 %. A moderator band is seen in the right ventricle. Mild diffuse mitral valve thickening. Mild focal mitral valve calcification of the anterior leaflet. Mild-Moderate (1-2+) mitral valve insufficiency. Mild tricuspid valve insufficiency. Unable to estimate RV systolic pressure due to insufficient tricuspid regurgita nt envelope. Diastolic function is indeterminate. Ordering Physician: Gema Hadley/Beau Kraft Referring Physician: KAUSHIK HOLDER Performed By: Ena Melara RDCS
== END | disposition home or self-care (01) ==
PROVIDERS: PCP Student in an Organized Health Care Education/Training Program; Referring Provider Physician Assistant Medical; Visit Provider Physician Assistant Medical
DX: I34.0 Nonrheumatic mitral (valve) insufficiency (principal)
CPT/HCPCS: 93306

== ENCOUNTER → 2022-03-27 | Outpatient (CLI) | payer OTHER, SELFPAY ==
--- NOTE | 2022-03-27 17:59 | MRI_ITS ---
EXAM: MR CERVICAL SPINE WITHOUT INTRAVENOUS CONTRAST CLINICAL INDICATION: Neck pain TECHNIQUE: Multiplanar and multisequence MR images of the cervical spine without intravenous contrast were performed. This report was created using [employer] report generation technology. COMPARISON: C-spine radiographs March 06, 2022 FINDINGS: VERTEBRAE: Loss of the normal lordosis suggestive of muscle spasm. Minimal anterior listhesis of C4 on C5 unchanged from prior exam. Normal craniocervical junction and cervicothoracic junction. SPINAL CORD: Unremarkable in signal and morphology. SOFT TISSUES: Normal. No prevertebral soft tissue swelling. LYMPH NODES: Normal. There is no cervical adenopathy. DISCS/SPINAL CANAL/NEURAL FORAMINA: C2-C3: Normal. Normal disc height and morphology. Normal spinal canal. Normal neuroforamina. C3-C4: Normal. Normal disc height and morphology. Normal spinal canal. Normal neuroforamina. C4-C5: Normal. Normal disc height and morphology. Normal spinal canal. Normal neuroforamina. C5-6: Moderate disc space narrowing. Mild central disc protrusion causes mild impression on the thecal sac. Intact neural foramina. Normal spinal canal. C6-7: Moderate disc space narrowing. Mild disc bulging without significant impingement on the thecal sac. Intact neural foramina. Normal spinal canal. C7-T1: Broad-based disc protrusion and posterior ligamentous redundancy results in mild impression of the thecal sac. Moderate right neural foraminal narrowing related to facet arthropathy and uncinate joint hypertrophy. Normal spinal canal. MRI/Spine Cervical (Routine) IMPRESSION: Disc degeneration at C5-6, C6-7 and C7-T1 without significant spinal stenosis. Moderate narrowing of the right C7-T1 neural foramen related to bony hypertrophy. Electronically Signed: Bulmaro Hopkins MD at 11:06 EDT ,
== END | disposition home or self-care (01) ==
PROVIDERS: PCP Student in an Organized Health Care Education/Training Program; Visit Provider Orthopaedic Surgery
DX: M54.2 Cervicalgia (principal)
CPT/HCPCS: 72141

== ENCOUNTER → 2023-01-22 | Outpatient (CLI) | payer OTHER, SELFPAY ==
--- NOTE | 2023-01-25 07:44 | STRESSREP_ITS ---
Stress Test Report Exercise myocardial perfusion stress test. 62-year-old lady with a history of coronary artery disease Stress protocol: Resting EKG demonstrates normal sinus rhythm with a rate of 62 bpm, and a right bundle branch block and resting blood pressure is 128/74 mmHg. The patient exercised according to the regular Nickolas protocol for a total duration of 6 minutes and 10 seconds attaining a maximum heart rate of 148 bpm which was 94% of maximum predicted heart rate; the maximum workload was 7.5 metabolic equivalents. At rest there were no ST or T wave changes noted to suggest ischemia and at peak exercise upsloping ST changes only were noted which did not meet the criteria for ischemia. No clinical angina was noted the test was terminated due to the target heart rate being achieved/fatigue. The peak blood pressure was 164/80 21,500 mmHg. Rate-pressure product was [26,200]. Myocardial perfusion protocol. 14.3 mCi of technetium 99m sestamibi was injected at rest. The patient exercised according to regular Nickolas protocol for total duration of 8 minutes and 10 seconds and at peak exercise 43.9 mCi of technetium 99m sestamibi was i njected stress images were obtained stress and rest images were reconstructed in comparing the short axis vertical long and horizontal long axis. Gated images were also obtained. Perfusion SPECT analysis: Review of the stress images demonstrate normal uptake of tracer noted in all areas of the myocardium. The resting images similarly demonstrate normal uptake of tracer noted in all areas of the myocardium. No areas of reversibility are noted to suggest ischemia no previous infarct was noted. Gated SPECT analysis: The gated ejection fraction is 69%. Conclusion: Normal exercise myocardial perfusion stress test at a moderate workload Preserved ejection fraction.
== END | disposition home or self-care (01) ==
LOC: CVS 07:04
PROVIDERS: PCP Student in an Organized Health Care Education/Training Program; Referring Provider Physician Assistant Medical; Visit Provider Physician Assistant Medical
DX: I25.10 Atherosclerotic heart disease of native coronary artery without angina pectoris (principal); Z95.5 Presence of coronary angioplasty implant and graft; E78.00 Pure hypercholesterolemia, unspecified; I10 Essential (primary) hypertension
CPT/HCPCS: 78452; 93017; A9500; A4216

== ENCOUNTER 2024-09-29 14:30 | Outpatient (RCR) | payer MEDICARE, OTHER, SELFPAY ==
--- NOTE | 2024-09-14 12:03 | HP.PTEVAL ---
Patient's Visit Information Visit Information Visit Information: EVELIO VELEZ is a 64 year old F referred to Physical Therapy by Dr. Nathanael Cabral DO with a diagnosis of CHRONIC LEFT SIDE LOW BACK PAIN WITH LEFT SCIATICA ,LEFT HIP PAIN. Date of Evaluation: 09/14/24 Physical Therapist: Abdi Craig, PT, Cert MDT, OCS Visit Plan Frequency: 2x /Week Duration: 4 Weeks Plan: PROGRESS TO GYM PROGRAM \PT INTERVENTIONS DLS ,POSTURAL EX'S, BLE STRENGTHENING ,TO PROGRESSION TO STRENGTHENING Subjective Subjective: This 64 y/o female presents to physical therapy with lumbar radiculopathy and hip pain. Patient had these symptoms in Nov which was intermittent . Then more constant for ~ 1 month. Seen family did prednisone for 1 week caused pain to go away. Patient and x-rays showed DDD. Patient pain located right hip groin to above knee. Pain aggravating standing ,some lifting. Alleviating factors medication. Bowel/bladder-. Cough/sneezing -. Symptoms affects sleeping intailly . Patient described as ache and spasms. Currently symptoms are better. Patient goals to learn HEP. Patient is member at SOCIAL: VOCATION: retired Objective Objective: POSTURE:mild forward posture GAIT: reciprocal pattern PALAPTION: unremarkable NEURO: denies paresthesia/tingling , reflexes L3-4,L;4-5 ,L5-S1 1/3 FLEXABILITY: piriformis min loss ,hamstrings min loss MMT: quads/hams/hip 4/5 ,ankle 4/5 LUMBAR ROM: flexion WFL ,extension WFL ,side glides min loss Special Tests L/S Slump test left side: Negative L/S Slump test right side: Negative L/S Left Straight Leg Raise: Negative L/S Right Straight Leg Raise: Negative Lumbar Standing: Flexion - Mechanical Response: No effect Lumbar Standing: Flexion - Symptoms During Testing: No effect Lumbar Standing: Flexion - Symptoms After Testing: No effect Lumbar Standing: Extension - Mechanical Response: No effect Lumbar Standing: Extension - Symptoms During Testing: No effect Lumbar Standing: Extension - Symptoms After Testing: No effect Lumbar Standing: Right Side Glides - Mechanical Response: No effect Lumbar Standing: Right Side Marion - Symptoms During Testing: No effect Lumbar Standing: Right Side Marion - Symptoms After Testing: No effect Lumbar Standing: Left Side Marion - Mechanical Response: No effect Lumbar Standing: Left Side Marion - Symptoms During Testing: No effect Lumbar Standing: Left Side Marion - Symptoms After Testing: No effect Balance/Special Test Scores Oswestry Low Back Score: 6 Goals Goal 1:: Patient to be I with HEP and gym program Goal Time Frame: 4-6 Weeks Goal 2:: Patient to demonstrate 70% improvement with function and housework tasks Goal Time Frame: 4-6 Weeks Goal 3:: Patient has improved lumbar ROM for function of recovery with lifting Goal Time Frame: 4-6 Weeks Goal 4:: Patient to improve back oswestry score by 3 points to improve QOL Goal Time Frame: 4-6 Weeks Rehabilitation Potential Physical Therapy Diagnosis: Patient had episode of lumbar pain with symptoms in left leg with pain is better thus will progress to HEP and gym program Rehabilitation Potential: Good Anticipated Interventions Patient/Client Instruction: Educate patient on: Condition and Plan of Care For the Purpose of:: To decrease pain, To increase ROM, To improve muscle performance and motor function, To improve ability to perform ADL's, To increase tolerance to activity/condition/position, To improve ability of physical actions for home/community/work/leisure, To improve health of tissue and To decrease soft tissue restriction Therapeutic Exercise to Include: Strength training, Postural training, Flexibilty training and Dynamic Lumbar Stabilization Comment: BLE For the Purpose of:: To decrease pain, To increase ROM, To improve ability to perform ADL's, To increase tolerance to activity/condition/position, To improve performance and independence with ADL's, To improve ability of physical actions for home/community/work/leisure, To improve health of tissue, To increase flexibility/ROM and To prevent re-injury Text: Thank you for the opportunity to evaluate your patient. For Medicare and Medicare HMO plans, please review the plan of care and approve it. It will need to be FAXED BACK to us at [phone] for Medicare purposes. For Medicare only, by signing this I certify the plan of care. Please let me know if there are questions or concerns regarding this plan of care. Physician Signature: Date:
--- NOTE | 2024-09-29 14:58 | HP.PTDCSUM ---
Discharge Summary D/C summary: It has been my pleasure to treat EVELIO VELEZ referred by Dr. Nathanael Cabral DO, with the diagnosis of CHRONIC LEFT SIDE LOW BACK PAIN WITH LEFT SCIATICA ,LEFT HIP PAIN for a total of 5 visit(s). Discharge Date: 09/29/24 Please see the following information for a summary of their discharge status. Subjective Subjective: Doing good.. no pain . Can manage on own Pain L hip: Pain Intensity (Out of 10): 0 Overall Improvement % Improvement: 100 Objective Objective/Function: POSTURE:mild forward posture GAIT: reciprocal pattern PALAPTION: unremarkable NEURO: denies paresthesia/tingling , reflexes L3-4,L;4-5 ,L5-S1 1/3 FLEXABILITY: piriformis min loss ,hamstrings min loss MMT: quads/hams/hip 4/5 ,ankle 4/5 LUMBAR ROM: flexion WFL ,extension WFL ,side glides min loss Goals Goal 1:: Patient to be I with HEP and gym program Goal Progress: Goal Met Goal 2:: Patient to demonstrate 70% improvement with function and housework tasks Goal Progress: Goal Met Goal 3:: Patient has improved lumbar ROM for function of recovery with lifting Goal Progress: Goal Met Goal 4:: Patient to improve back oswestry score by 3 points to improve QOL Goal Progress: Goal Met Plan Plan: D/C D/C Information Discharge Comments: HEP AND GYM PROGRAM d/c sentence: If there are questions or concerns regarding this patient's physical therapy, please feel free to call me at [phone]. Thank you for the referral of this patient. Sincerely, Abdi Craig, PT, Cert MDT, OCS Balance/Gait/Functional tests Balance/Special Test Scores Oswestry Low Back Score: 0 Improvement % Improvement: 100
== END 2024-09-29 15:21 | disposition home or self-care (01) ==
LOC: PT 14:30
PROVIDERS: PCP Student in an Organized Health Care Education/Training Program; Referring Provider Student in an Organized Health Care Education/Training Program; Visit Provider Student in an Organized Health Care Education/Training Program
DX: M54.42 Lumbago with sciatica, left side (principal); M25.552 Pain in left hip; G89.29 Other chronic pain
CPT/HCPCS: 97110; 97162; 97530

== ENCOUNTER → 2025-08-14 | Outpatient (CLI) | payer MEDICARE, OTHER, SELFPAY ==
--- OUTSIDE RECORDS SUMMARY | 2025-08-14 08:39 | XMS RPT_ITS | CCD ---
Author Organization [facility] Care Team Providers Care Humanities Coordinator Name Role Phone Beth Bautista Unavailable Unavailable eBth Bautista Unavailable Unavailable Nathanael Cabral DO Primary Care Provider Dr. Nathanael Cabral Primary Care Provider Dr. Beau Kraft Attending Provider Dr. Nathanael Cabral Referring Provider Dr. Solo Nevarez Attending Provider Dr. Sukumar Becerra Attending Provider Nathanael Cabral DO Primary Care Provider Nathanael Cabral DO Primary Care Provider Nathanael Cabral DO Primary Care Provider Dr. Nathanael Cabral Primary Care Provider Dr. Nathanael Cabral Referring Provider SHAKEEL Dunn Attending Provider SHAKEEL Dunn Referring Provider SHAKEEL Dunn Other Provider Dr. Sukumar Becerra Attending Provider Nathanael Cabral DO Primary Care Provider Justino IT TECHNICAL SPECIALIST.Preeti CAMPO Unavailable Sally IT TECHNICAL SPECIALIST.Lorna CAMPO Unavailable Atul IT TECHNICAL SPECIALIST.Kerry CAMPO Unavailable Dr. Nathanael Cabral DO Primary Care Provider Dr. Nathanael Cabral DO Referring Provider Dr. Sukumar Becerra MD Attending Provider Sukumar Becerra Attending Unavailable Cabral, Nathanael Referring Unavailable Cabral, Nathanael Primary Care Unavailable Cabral, Nathanael Referring Unavailable Cabral, Nathanael Attending Unavailable Cabral, Nathanael Primary Care Unavailable SELF Referring Unavailable CABRAL, NATHANAEL L Attending Unavailable CABRAL, NATHANAEL L Primary Care Unavailable CABRAL, NATHANAEL L Referring Unavailable CABRAL, NATHANAEL L Primary Care Unavailable MARIANNE BOLTON Attending Unavailable CABRAL, NATHANAEL L Primary Care Unavailable CABRAL, NATHANAEL L Primary Care Unavailable GEM HUDDLESTNO Attending Unavailable CABRAL, NATHANAEL L Primary Care Unavailable PRAJOELLE-MARJAN GEM Referring Unavailable CABRAL, NATHANAEL L Primary Care Unavailable Allergies Allergy Classification Reported Allergen(s) Allergy Type Date of Onset Reaction(s) Facility (20 sources) levoFLOXacin; Translations: [LEVOFLOXACIN] Drug Allergy 0 Other: See Comments [facility] Work Phone: (1 source) levoFLOXacin Drug Allergy 5 [facility] Repository Medications Current Medications Medication Drug Class(es) Dates Sig (Normalized) Sig (Original) aspirin 81 mg delayed release oral tablet (20 sources) Nonsteroidal Anti-inflammatory Drug Start: 05-17-2014 take 1 tablet by mouth once daily ASPIRIN 81 MG TABS One tablet by mouth daily ASPIRIN [id number] Gema Hadley PA-C Start: 05-17-2014 take 1 tablet by tina th once daily ASPIRIN 325 MG TABS One tablet by mouth daily ASPIRIN [id number] Milvia Mobley RN Start: 05-17-2014 take 1 tablet by tina th once daily ASPIRIN 81 MG TABS One tablet by mouth daily ASPIRIN [id number] Gema Hadley PA-C Start: 04-30-2014 Aspirin (Adult Low Dose Aspirin) 81 mg tablet,delayed release (/EC) Active 81 mg PO DAILY November 13, 2017 12:00am Comment on above: Take 1 tablet by tina th once daily. atorvastatin 40 mg oral tablet (20 sources) HMG-CoA Reductase Inhibitor Start: End: take 1 tablet by mouth at bedtime Atorvastatin 40 mg tablet Active 40 mg PO AT BEDTIME October 27, 2024 3:59pm Comment on above: Take 1 tablet by tina th daily at bedtime. For cholesterol. Calcium Carbonate / vitamin D3 (9 sources) take 2 tablets by mouth once daily calcium carbonate/vitamin D3 (CALCIUM 600 + D ORAL) Take 2 tablets by mouth once daily. Active take 2 tablets by mouth once isaiah ly calcium carbonate/vitamin D3 (CALCIUM 600 + D ORAL) Take 2 tablets by mouth once daily. 0 Active Comment on above: Take 2 tablets by mo [facility] once daily. calcium citrate 1040 mg oral tablet (1 source) Start: 12-29-19 take 1 tablet by mouth once daily Calcium Citrate 250 mg calcium tablet Active 250 mg PO DAILY December 29, 2023 12:00am cholecalciferol 0.025 mg oral tablet (5 sources) Vitamin D Start: 02-14-20 take 1 tablet by mouth once daily Cholecalciferol (Vitamin D3) 25 mcg (1,000 unit) tablet Active 50 ug PO DAILY February 13, 2025 11:10am Start: 04-21-2021 End: 02-13-2025 take 1 tablet by mouth once daily Cholecalciferol (Vitamin D3) 25 mcg (1,000 unit) tablet Discontinued 25 ug PO DAILY April 21, 2021 12:00am February 13, 2025 11:10am doxycycline hyclate 100 mg oral tablet (1 source) Tetracycline-class Drug Start: 12-03-2023 End: 12-03-2023 take 2 tablets by mouth once doxycycline (VIBRA-TABS) 100 mg tablet Indications: Tick bite of abdominal wall, initial encounter Take 2 tablets by mouth one time only for 1 dose. 2 tablet 0 12/03/2023 12/03/2023 Active Comment on above: Take 2 tablets by mo [facility] one time only for 1 dose. ergocalciferol, vitamin D2, (VITAMIN D2 ORAL) (20 sources) ergocalciferol, vitamin D2, (VITAMIN D2 ORAL) Take 1,000 mg by mouth. Active ergocalciferol, vitamin D2, (VITAMIN D2 ORAL) Take 1,000 mg by mouth. 0 Active Comment on above: Take 1,000 mg by tina th. fluconazole 150 mg oral tablet (1 source) Azole Antifungal Start: 5 End: 5 take 1 tablet by mouth in the morning fluconazole (DIFLUCAN) 150 mg tablet Take 1 tablet by mouth every 3 days in the morning for 2 doses. 2 tablet 12/08/2024 12/12/2024 Active lisinopril 2.5 mg oral tablet (20 sources) Angiotensin Converting Enzyme Inhibitor Start: 4 End: 4 take 1 tablet by mouth once daily Lisinopril 2.5 mg tablet Active 0 .ROUTE .COMPLEX August 21, 2024 9:58am TAKE 1 TABLET BY MOUTH EVERY DAY FOR BLOOD PRESSURE Comment on above: Take 1 tablet by tina th once daily. meloxicam 7.5 mg oral tablet (5 sources) Nonsteroidal Anti-inflammatory Drug Start: 5 take 1-2 tablets by mouth once daily as needed for pain meloxicam (MOBIC) 7.5 mg tablet Indications: Chronic left-sided low back pain with left-sided sciatica , Left hip pain Take 1-2 tablets by mouth once daily as needed (severe sciatica pain). 30 tablet 2 09/01/2024 Active metoprolol tartrate 25 mg oral tablet (20 sources) beta-Adrenergic Jaylen Start: 8 End: 5 Metoprolol Tartrate 25 mg tablet Active 12.5 mg PO TWICE A DAY October 27, 2024 3:59pm Start: 11-13-2017 End: 10-13-2022 take 12.5 mg by mouth twice daily Metoprolol Tartrate Discontinued 12.5 MG PO TWICE A DAY October 24, 2020 3:19pm October 22, 2021 11:00am Start: 05-17-2014 take 0.5 tablet by m outh twice daily METOPROLOL SUCCINATE ER 25 MG [id number] 1/2 tablet by mouth twice daily METOPROLOL SUCCINATE [id number] Beau Kraft MD Start: 04-30-2014 take 0.5 tablet by m outh twice daily metoprolol tartrate, short acting, 25 mg tablet Take 0.5 tablets by mouth twice daily. 0 04/30/2014 Active Comment on above: Take 0.5 tablets by mouth twice daily. nitroglycerin 0.4 mg sublingual tablet (20 sources) Nitrate Vasodilator Start: 11-15-2017 End: 02-13-2025 Nitroglycerin (Nitrostat) 0.4 mg tablet, sublingual Active 0.4 mg SL Q5M as needed for CHEST PAIN February 13, 2025 11:12am Start: 11-15-2017 End: 10-28-2020 Nitroglycerin (Nitrostat) 0. 4 mg tablet, sublingual Active 0.4 MG SL Q5M October 28, 2020 5:26pm Start: 05-17-2014 NITROSTAT 0.4 MG SUBL 1 tablet under tongue every 5 min up to 3 X NITROGLYCERIN [id number] Milvia Mobley RN Comment on above: Dissolve 1 tablet un mary the tongue every 5 minutes as needed. Ramsay-3 Fatty Acids (FISH OIL) 500 mg cap (20 sources) Start: 04-30-2014 take 1 capsule by mouth twice daily Ramsay-3 Fatty Acids (FISH OIL) 500 mg cap Take 1 capsule by mouth twice daily. 04/30/2014 Active Start: 04-30-2014 take 1 capsule by mo uth twice daily Ramsay-3 Fatty Acids (FISH OIL) 500 mg cap Take 1 capsule by mouth twice daily. 0 04/30/2014 Active Comment on above: Take 1 capsule by mo uth twice daily. Ramsay-3 Fatty Acids-Fish Oil (3 sources) Start: 03-14-2018 take 1000 mg by mouth twice daily Ramsay-3 Fatty Acids-Fish Oil Active 1000 MG PO TWICE A DAY March 14, 2018 12:00am Ramsay-3 Fatty Acids-Fish Oil 1 EACH capsule (1 source) Start: 03-14-2018 take 1 capsule by mouth twice daily Ramsay-3 Fatty Acids-Fish Oil 1 EACH capsule Active 1000 mg PO TWICE A DAY March 14, 2018 12:00am predniSONE 10 mg oral tablet (4 sources) Start: 09-01-2024 End: 09-10-2024 predniSONE (DELTASONE) 10 mg tablet Indications: Chronic left-sided low back pain with left-sided sciatica , Left hip pain With food, take in the AM. Take 4 tabs daily for 3 days, then 2 tabs daily for 3 days, then 1 tab daily for 3 days with food. 21 tablet 09/01/2024 09/10/2024 Active Start: 11-12-2021 End: 11-21-2021 predniSONE (DELTASONE) 10 mg tablet Take 4 tabs daily for 3 days, then 2 tabs daily for 3 days, then 1 tab daily for 3 days with food. 21 tablet 0 11/12/2021 11/21/2021 Active Comment on above: Take 4 tabs daily fo r 3 days, then 2 tabs daily for 3 days, then 1 tab daily for 3 days with food. Completed/Discontinued Medications Medication Drug Class(es) Dates Sig (Normalized) Sig (Original) acetaminophen 325 mg / HYDROcodone bitartrate 5 mg oral tablet (4 sources) Opioid Agonist Start: 07-09-2020 End: 07-14-2020 Hydrocodone-Acetami nophen 1 TABLET tablet Discontinued 1 {tbl} PO EVERY 8 HOURS NEEDED as needed for Pain 04 01July 09, 2020 July 13, 2020 1:00am July 14, 2020 1:02am Start: 07-09-2020 End: 07-14-2020 take 1 tablet by mouth every eight hours as needed Hydrocodone-Acetaminophen Discontinued 1 TABLET PO EVERY 8 HOURS NEEDED 04 01July 09, 2020 July 14, 2020 1:02am cyclobenzaprine hydrochloride 10 mg oral tablet (20 sources) Muscle Relaxant Start: 12-09-2020 End: 12-24-2022 take 1 tablet by mouth every eight hours as needed cyclobenzaprine (FLEXERIL) 10 mg tablet Take 1 tablet by mouth three times daily as needed for Muscle Spasm. 15 tablet 12/09/2020 12/24/2022 Discontinued Comment on above: Take 1 tablet by tina three times daily as needed for Muscle Spasm. dicyclomine hydrochloride 10 mg oral capsule (20 sources) Anticholinergic Start: 11-30-2020 End: 12-24-2022 take 1 capsule by mouth three times daily as needed Dicyclomine 10 mg capsule Discontinued 10 mg PO THREE TIMES A DAY as needed April 21, 2021 12:00am March 06, 2022 11:07am famotidine 20 mg oral tablet (20 sources) Histamine-2 Receptor Antagonist Start: 01-22-2020 End: 05-29-2024 take 1 tablet by mouth at bedtime Famotidine (Pepcid Ac) 20 mg tablet Discontinued 20 mg PO AT BEDTIME April 18, 2020 12:00am March 06, 2022 11:07am Comment on above: Take 1 tablet by tina th twice daily. Take 1 tablet by tina th two times a day. fish oil (2 sources) Start: 05-17-2014 take 1 tablet by mouth twice daily FISH OIL CAPS One tablet by mouth twice daily OMEGA-3 FATTY ACIDS CAPS [id number] Milvia Mobley RN Start: 05-17-2014 take 1 tablet by tina th twice daily FISH OIL CAPS One tablet by mouth twice daily OMEGA-3 FATTY ACIDS CAPS [id number] Milvia Mobley RN lansoprazole 30 mg delayed release oral capsule (18 sources) Proton Pump Inhibitor Start: 05-17-2014 take 1 tablet by mouth once daily PREVACID 30 MG CPDR One tablet by mouth daily LANSOPRAZOLE [id number] Beau Krfat MD Start: 04-22-2014 End: 04-18-2020 take 1 capsule by mouth once daily Lansoprazole 30 mg capsule,delayed release(DR/EC) Discontinued 30 mg PO DAILY October 09, 2019 5:03pm April 18, 2020 10:04am prasugrel 10 mg oral tablet (20 sources) P2Y12 Platelet Inhibitor Start: 11-16-2017 End: 11-16-2017 Prasugrel Hcl 10 mg tablet Discontinued PO 90 November 16, 2017 12:00am November 16, 2017 9:55am Start: 04-30-2014 End: 01-04-2023 take 1 tablet by mouth once daily Prasugrel Hcl 10 mg tablet Discontinued 10 mg PO daily October 03, 2020 10:39am October 18, 2020 10:45am Comment on above: Take 1 tablet by tina th once daily. sucralfate 1000 mg oral tablet (20 sources) Aluminum Complex Start: 02-09-2020 End: 01-04-2023 take 1 tablet by mouth three times daily sucralfate (CARAFATE) 1 gram tablet Take 1 tablet by mouth three times daily. 60 tablet 1 02/09/2020 01/04/2023 Discontinued Comment on above: Take 1 tablet by tina th three times daily. Problems Active Problems Problem Classification Problem Date Documented Da te Episodic/Chronic Acute myocardial infarction (6 sources) Subsequent ST elevation (STEMI) myocardial infarction of inferior wall; Translations: [Acute myocardial infarction of inferoposterior wall] Onset: 4 05-17-2014 Chronic Coronary atherosclerosis and other heart disease (20 sources) Atherosclerotic heart disease of [place] coronary artery without angina pectoris; Translations: [Coronary atherosclerosis] Onset: 4 Resolved: 7 05-17-2014 Chronic Comment on above: SARA RCA PTCA/SARA to prox RCA with thrombectomy 04/22/14 EF 45% Coronary atherosclerosis and other heart disease (10 sources) Coronary angioplasty status; Translations: [Stented coronary artery] Onset: 4 05-17-2014 Episodic Comment on above: PTCA/SARA to prox RCA with thrombectomy 04/22/14 04/22/14 [facility] with sub sequent PTCA, thrombectomy & SARA to RCA Disorders of lipid metabolism (20 sources) Hyperlipidemia; Translations: [Dyslipidemia] Onset: 4 05-17-2014 Chronic E Codes: Fall (5 sources) Fall; Translations: [Unspecified fall, initial encounter] Episodic Esophageal disorders (20 sources) Gastroesophageal reflux disease; Translations: [Gastro-esophageal reflux disease without esophagitis] Onset: 5 03-01-2006 Chronic Essential hypertension (3 sources) Essential hypertension; Translations: [Essential (primary) hypertension] 12-28-2022 Chronic Fracture of lower limb (7 sources) Closed fracture of patella; Translations: [Unspecified fracture of right patella, subsequent encounter for closed fracture with routine healing] Episodic Heart valve disorders (5 sources) Mitral valve regurgitation; Translations: [Nonrheumatic mitral (valve) insufficiency] 04-21-2021 Chronic Immunizations and screening for infectious disease (2 sources) Vaccination needed; Translations: [Encounter for immunization] Episodic Mycoses (1 source) Candidiasis of vagina; Translations: [Yeast vaginitis] 12-08-2024 Episodic Nonspecific chest pain (4 sources) Chest discomfort; Translations: [Other chest pain] 09-21-2021 Episodic Nutritional deficiencies (6 sources) Vitamin D deficiency; Translations: [Vitamin D deficiency, unspecified] Onset: 5 09-01-2024 Chronic Osteoarthritis (18 sources) Degenerative joint disease involving multiple joints; Translations: [Polyosteoarthritis, unspecified] Onset: 6 04-19-2006 Chronic Other aftercare (4 sources) Long-term current use of drug therapy; Translations: [Other half-way (current) drug therapy] 11-15-2017 Episodic Other connective tissue disease (2 sources) Pain in left foot; Translations: [Pain in left foot] Episodic Other connective tissue disease (1 source) Swelling of right lower limb; Translations: [Other specified soft tissue disorders] Episodic Other connective tissue disease (1 source) Other enthesopathies, not elsewhere classified; Translations: [Right wrist tendonitis] Onset: 5 Episodic Other female genital disorders (1 source) Vaginal irritation; Translations: [Other specified noninflammatory disorders of vagina] 12-08-2024 Episodic Other gastrointestinal disorders (20 sources) Irritable bowel syndrome; Translations: [Irritable bowel syndrome without diarrhea] Onset: 5 03-01-2006 Chronic Other hereditary and degenerative nervous system conditions (20 sources) System disorder of the nervous system; Translations: [Other specified extrapyramidal and movement disorders] Onset: 6 04-19-2006 Chronic Other injuries and conditions due to external causes (1 source) Fracture of bone; Translations: [Other injury of unspecified body region, initial encounter] Episodic Other nervous system disorders (20 sources) Carpal tunnel syndrome; Translations: [Carpal tunnel syndrome, unspecified upper limb] Onset: 5 03-01-2006 Chronic Other nervous system disorders (1 source) Other chronic pain; Translations: [Chronic left-sided low back pain with left-sided sciatica] Onset: 5 Chronic Other non-traumatic joint disorders (19 sources) Arthropathy of multiple joints; Translations: [Arthropathy, unspecified] Onset: 6 01-07-2023 Chronic Other non-traumatic joint disorders (1 source) Pain in right wrist; Translations: [Acute pain of right wrist] Onset: 5 Episodic Other nutritional; endocrine; and metabolic disorders (20 sources) Obesity; Translations: [Obesity, unspecified] Onset: 5 03-01-2006 Chronic Other nutritional; endocrine; and metabolic disorders (13 sources) Obese class I; Translations: [Obesity, unspecified] Onset: 3 01-07-2023 Chronic Other skin disorders (2 sources) Localized swelling of left foot; Translations: [Localized swelling, mass and lump, left lower limb] Episodic Other upper respiratory infections (1 source) Sore throat symptom; Translations: [Acute pharyngitis, unspecified] 04-30-2023 Episodic Residual codes; unclassified (20 sources) Sleep apnea; Translations: [Sleep apnea, unspecified] Onset: 6 03-15-2006 Chronic Spondylosis; intervertebral disc disorders; other back problems (20 sources) Inflammation of sacroiliac joint; Translations: [Sacroiliitis, not elsewhere classified] Onset: 7 12-20-2006 Chronic Superficial injury; contusion (1 source) Tick bite; Translations: [Insect bite (nonvenomous) of abdominal wall, initial encounter] 12-03-2023 Episodic Thyroid disorders (20 sources) Goiter; Translations: [Iodine-deficiency related diffuse (endemic) goiter] Onset: 7 06-18-2017 Chronic Unclassified (3 sources) Long-term drug therapy; Translations: [Long-term (current) use of other medications] Onset: 4 Resolved: 5 05-17-2014 Unclassified (1 source) Yeast vaginitis; Translations: [Yeast vaginitis] Onset: 5 Viral infection (1 source) Viral disease; Translations: [Viral infection, unspecified] 04-30-2023 Episodic Past or Other Problems Problem Classification Problem Date Documented Da te Episodic/Chronic Abdominal pain (20 sources) Epigastric pain; Translations: [Epigastric pain] Onset: 06-24-2018 06-24-2018 Episodic Allergic reactions (20 sources) Eczema; Translations: [Dermatitis, unspecified] Onset: 03-30-2011 03-30-2011 Episodic Diabetes mellitus without complication (6 sources) Impaired fasting glycemia; Translations: [Impaired fasting glucose] Onset: 09-02-2024 09-01-2024 Episodic Esophageal disorders (20 sources) Esophagitis; Translations: [Esophagitis, unspecified] Onset: 07-03-2011 07-03-2011 Episodic Gastritis and duodenitis (20 sources) Acute gastritis; Translations: [Acute gastritis without bleeding] Onset: 07-03-2011 07-03-2011 Episodic Hemorrhoids (20 sources) External hemorrhoids; Translations: [Residual hemorrhoidal skin tags] Onset: 07-03-2011 07-03-2011 Episodic Intestinal obstruction without hernia (20 sources) Intestinal obstruction; Translations: [Intestinal adhesions [bands], unspecified as to partial versus complete obstruction] Onset: 07-03-2011 07-03-2011 Episodic Malaise and fatigue (2 sources) Fatigue; Translations: [Other fatigue] Onset: 07-13-2016 07-13-2016 Episodic Other aftercare (3 sources) Long-term (current) use of other medications; Translations: [Other long wall mining machine tender (current) drug therapy] Onset: 05-17-2014 Resolved: 06-13-2015 05-17-2014 Episodic Other connective tissue disease (20 sources) Spasm; Translations: [Other muscle spasm] Onset: 07-24-2005 03-01-2006 Episodic Other connective tissue disease (20 sources) Muscle pain; Translations: [Myalgia and myositis, unspecified] Onset: 04-19-2006 04-19-2006 Episodic Other female genital disorders (1 source) Other specified noninflammatory disorders of vagina; Translations: [Vaginal irritation] Onset: 12-08-2024 Episodic Other gastrointestinal disorders (20 sources) Abdominal bloating; Translations: [Abdominal distension (gaseous)] Onset: 06-24-2018 06-24-2018 Episodic Other non-traumatic joint disorders (7 sources) Hip pain; Translations: [Pain in left hip] Onset: 09-02-2024 09-01-2024 Episodic Other non-traumatic joint disorders (1 source) Pain in left hip; Translations: [Left hip pain] Onset: 09-02-2024 Episodic Other nutritional; endocrine; and metabolic disorders (8 sources) Body mass index (BMI) 28.0-28.9, adult; Translations: [Body mass index (BMI) 27.0-27.9, adult] Onset: 05-24-2014 Resolved: 02-15-2015 02-15-2015 Episodic Other nutritional; endocrine; and metabolic disorders (20 sources) Abnormal weight gain; Translations: [Abnormal weight gain] Onset: 03-01-2006 03-01-2006 Episodic Other screening for suspected conditions (not mental disorders or infectious disease) (20 sources) Blood chemistry abnormal; Translations: [Other specified abnormal findings of blood chemistry] Onset: 03-15-2006 03-15-2006 Episodic Residual codes; unclassified (20 sources) Edema; Translations: [Edema, unspecified] Onset: 03-01-2006 03-01-2006 Episodic Spondylosis; intervertebral disc disorders; other back problems (20 sources) Neck pain; Translations: [Cervicalgia] Onset: 03-01-2006 Resolved: 01-02-2022 03-01-2006 Episodic Unclassified (12 sources) Body Mass Index between 19-24, adult; Translations: [FH: Raised blood lipids] Onset: 05-24-2014 Resolved: 08-09-2015 02-15-2015 Episodic Results Test Name Value Interpretation Reference Range Facility [facility] 06-28-2025 [facility] Office Visit ([facility]) EVELIO MICHELLE ([id number]) 1960 F Date Time Provider Department 06/28/25 11:15 AM GEM HUDDLESTON During your visit today, we recorded the following information about you: Temperature Pulse Respiration Blood pressure 97 degrees 64/minute 20/minute 152/83 Weight 91 kg Gem Huddleston APRN.SUPERVISOR RESIDENTIAL 06/28/2025 1:12 PM Signed [facility] Subjective Evelio Phoenix Viviana is a 65 year old female. Patient presents with: Musculoskeletal Problem: R hand wrist swelling and pain hand wrist and going up arm, painted a room x 2, x 4 days Musculoskeletal Problem Associated symptoms include joint swelling. Pertinent negatives include no fever or rash. The patient is a 65-year-old female presenting with right wrist pain and swelling. Right Wrist Pain and Swelling: - Onset after painting a room for two days, with a day of rest in between. - Noticed swelling yesterday, prompting removal of rings. - Pain has progressively worsened, with shooting pain radiating up the arm. - Pain present at rest and with movement; able to move fingers. - Alternating use of ice and heat for relief. - Taking Tylenol for pain management. - Suspects arthritis history. Review of Systems Constitutional: Negative for fever. Musculoskeletal: Positive for joint swelling. Skin: Negative for color change, rash and wound. Musculoskeletal: (+) right wrist pain, (+) right wrist swelling, (+) right arm shooting pain, (+) pain with wrist movement Objective BP 152/83 Pulse 64 Temp 36.1 ?C (97 ?F) Resp 20 Wt 91 kg (200 lb 9.9 oz) LMP 07/18/2010 SpO2 99% BMI 32.24 kg/m? PAST MEDICAL HISTORY Diagnosis Date - Acute gastritis without mention of hemorrhage - Acute SC (HCC) 04/21/2014 Nausea and then chest pressure; sent from ER to [facility]; stent placed, - Cholelithiasis without cholecystitis - Coronary artery disease - Eczema 03/30/2011 - Esophageal reflux - Esophagitis, unspecified - Excessive or frequent menstruation Heavy periods - External hemorrhoids without mention of complication - HYPERGLYCEMIA 03/15/2006 - Internal hemorrhoids without mention of complication - Intestinal or peritoneal adhesions with obstruction (postoperative) (postinfection) (HCC) - Irritable bowel syndrome - Low HDL (under 40) rest of lipids have been fine - NOCTURNAL RESTLESS LEGS 04/19/2006 PAST SURGICAL HISTORY Procedure Laterality Date - COLONOSCOPY FLX DX W/COLLJ SPEC WHEN PFRMD 03/06/1996 Colonoscopy - COLONOSCOPY W/BIOPSY SINGLE/MULTIPLE 07/03/11 - CORONARY STENT EA VESSEL 03/2014 right coronary artery - EGD TRANSORAL BIOPSY SINGLE/MULTIPLE 07/03/11 - ESOPHAGOGASTRODUODENOSCOPY TRANSORAL DIAGNOSTIC 02/02/2020 EGD - LAPS SURG CHOLECYSTECTOMY W/CHOLANGIOGRAPHY 07/09/2020 - OFFICE ENDOMETRIAL ABLATION 07/31/2010 - PAST SURGICAL HISTORY OF 03/01/2000 LEFT HEEL SPUR AND LIGAMENT SURGERY - PAST SURGICAL HISTORY OF benign tumor removal right side- breast ALLERGIES Levaquin [Levofloxacin] MEDICATIONS - famotidine (PEPCID) 20 mg tablet Take 1 tablet by mouth two times a day. - calcium carbonate/vitamin D3 (CALCIUM 600 + D ORAL) Take 2 tablets by mouth once daily. - ergocalciferol, vitamin D2, (VITAMIN D2 ORAL) Take 1,000 mg by mouth. - nitroglycerin sublingual (NITROSTAT) 0.4 mg SL tablet Dissolve 1 tablet under the tongue every 5 minutes as needed. - aspirin, enteric coated 81 mg EC tablet Take 1 tablet by mouth once daily. - Ramsay-3 Fatty Acids (FISH OIL) 500 mg cap Take 1 capsule by mouth twice daily. (Patient taking differently: Take 1,000 mg by mouth two times a day.) - metoprolol tartrate, short acting, 25 mg tablet Take 0.5 tablets by mouth twice daily. - lisinopril 2.5 mg tablet Take 1 tablet by mouth once daily. - atorvastatin (LIPITOR) 40 mg tablet Take 1 tablet by mouth daily at bedtime. For cholesterol. - predniSONE (DELTASONE) 10 mg tablet Take 4 tablets by mouth once daily for 3 days, THEN 3 tablets once daily for 3 days, THEN 1 tablet once daily for 3 days. - meloxicam (MOBIC) 7.5 mg tablet Take 1-2 tablets by mouth once daily as needed (severe sciatica pain). (Patient not taking: Reported on 06/28/2025) FAMILY HISTORY Problem Relation Age of Onset - Arthritis Mother - Alzheimer's Disease Father - Arthritis Maternal Grandmother - Heart Maternal Grandmother CHF - Cancer Maternal Grandfather SOCIAL HISTORY[1] Physical Exam Vitals and nursing note reviewed. Constitutional: General: She is not in acute distress. Appearance: Normal appearance. She is not ill-appearing. Musculoskeletal: General: Swelling and tenderness present. No deformity or signs of injury. Right wrist: Swelling and tenderness present. No deformity, effusion, lacerations, bony tenderness or crepitus. Decreased range of motion. Normal pulse. Arms: Skin: (more content not included)... Normal [place] XR WRIST 3V PA/LAT/OBL RTon 06-28-2025 XR WRIST 3V PA/LAT/OBL RT * * *Final Report* * * DATE OF EXAM: Jun 28 2025 11:52AM WOX [id number] - XR WRIST 3V PA/LAT/OBL RT / PROCEDURE REASON: Acute pain of right wrist * * * * Physician Interpretation * * * * EXAMINATION: XR WRIST 3V PA/LAT/OBL RT TECHNOLOGIST PROVIDED HISTORY: pain that radiates into forearm with visible swelling to the right wrist and first 2 digits after painting a few days ago CLINICAL INFORMATION: 65 years old Female with Acute pain of right wrist TECHNIQUE: XR WRIST 3V PA/LAT/OBL RT Laterality: RIGHT Number of different views (projections): 3 COMPARISON: None RESULT: No acute fracture. Globular calcification radial aspect 1st CMC joint may represent calcific periarthritis. Joint spaces are maintained. No erosions. IMPRESSION: No acute osseous abnormality. Globular calcification radial aspect 1st CMC joint may represent calcific periarthritis. Detective Precinct: [facility] Transcribe Date/Time: Jun 28 2025 11:53A Dictated by : GEETHA JUÁREZ DO This examination was interpreted and the report reviewed and electronically signed by: GEETHA JUÁREZ DO on Jun 28 2025 11:58AM EST [id number] Normal [place] Cardiology Visit Reporton Cardiology Visit Report [facility] [address] [place] [address] OFFICE VISIT Date of Service: 02/13/25 MR#: [id number] Acct: [id number] Name: EVELIO MICHELLE Rep #: [id number] : 1960 Provider: Dr. Sukumar Becerra MD Age/Sex: 64/F Location: [facility] Status: Signed HPI HPI History of Present Illness Details: EVELIO MICHELLE, is a 64 year old white female who presents to the office today for a cardiovascular follow-up with a history of coronary artery disease with stenting to her RCA in 2013. She also has a history of ischemic cardiomyopathy that has since improved, hyperlipidemia, and hypertension. From a cardiac standpoint, patient is doing well. She does not have any chest discomfort/heaviness/tightne ss. Her exercise tolerance is stable for her age. [facility] is going [facility]. She does not have any worsening symptoms of shortness of breath. She does not have any orthopnea. She denies PND. She does not have any symptoms of congestive heart failure. She does not have any palpitations that she is aware of. She does not have any lightheadedness or dizziness. She does not have any near-syncope or syncope. She does not have any lower extremity edema. She does not have any symptoms of claudication. Intake Vital Signs 12/29/23 10:54 02/13/25 11:07 Height 5 ft 7 in 5 ft 7 in Weight: 200 lb BMI 31.3 BP 133/73 H Blood Pressure Location Lt brachial Position Sitting Respiration 16 Pulse 70 Pulse Source Monitor Intake Visit Reasons: 1 Y FU Gas Usage Meter Clerk Required: No Accompanied by: Self Is patient in pain?: No Allergies levofloxacin Adverse Reaction (Severe, Verified 02/13/25 11:09) muscle pain Medications ???Medication ???Instructions ???Recorded ???Confirmed ???Type aspirin 81 mg tablet,delayed 81 mg PO DAILY 11/13/17 02/13/25 H istory release (Adult Low Dose Aspirin) omega-3 fatty acids-fish oil 340 1,000 mg PO BID 03/14/18 02/13/25 History mg-1,000 mg capsule famotidine 20 mg tablet (Pepcid AC) 20 mg PO BID reflux 03/06/22 History calcium citrate 250 mg PO DAILY 12/29/23 02/13/25 History lisinopril 2.5 mg tablet See Rx Instructions .Route 4 02/13/25 Rx .COMPLEX #90 tabs atorvastatin 40 mg tablet 40 mg PO QHS #90 tabs 10/27/24 Rx metoprolol tartrate 25 mg tablet 12.5 mg (1/2 x 25 mg) PO BID 10/2702/13/25 Rx bp/heart #90 tabs cholecalciferol (vitamin D3) 25 50 mcg PO DAILY 02/13/25 02/13/25 History mcg (1,000 unit) tablet nitroglycerin 0.4 mg sublingual 0.4 mg sublingual Q5M PRN CHEST 02/13/25 Rx tablet (Nitrostat) PAIN #25 tabs Have you fallen in the past year?: No PFSH Medical History Essential hypertension Mitral valve insufficiency Pure hypercholesterolemia Presence of stent in coronary artery ( 04/22/14) Acute myocardial infarction of inferoposterior wall, subsequent episode of care Atherosclerotic heart disease of [place] coronary artery without angina pectoris Cardiomyopathy, ischemic CAD (coronary artery disease) ( 2013) Surgical History Presence of coronary angioplasty implant and graft ( 04/22/14) Postsurgical percutaneous transluminal coronary angioplasty (PTCA) status Family History Father Hypertension Mother HLD (hyperlipidemia) Social History household members: none Smoking Status: Never smoker alcohol intake: never substance use type: does not use caffeine: Yes Type: other what type of physical activity do you participate in: walking, bicycling and other details: Tredmill frequency: 3-4 times per week duration: 30-45 minutes/day seatbelt use: always do you feel safe at home: Yes ROS Const Const: Negative for fatigue, weakness, headache(s), daytime sleepiness or difficulty sleeping ENT ENT: Negative for headache(s), dizziness or Nosebleed/epistaxis Cardio Chest Pain: No Palpitations: No Edema: None Resp Respiratory: Negative for SOB with activity, SOB at rest, SOB orthopnea SOB lying down or Cough GI GI: Positive for heartburn; Negative nausea or vomiting Neuro Neuro: Negative for dizziness, lightheadedness, near syncope, headache(s) or weakness Endo Endo: Negative for fatigue Cardiology Exam Const Appearance: cooperative, healthy appearing, comfortable, no acute distress, well developed and well groomed Nutritional Appearance: overweight Orientation: alert, awake and oriented x3 Head Head: normal to inspection and normocephalic Ears: hearing grossly normal bilaterally Nose: external nose normal Face and Sinus: face symmetric Eyes E (more content not included)... Normal [facility] BACTERIAL VAGINOSIS NAATon 0 12-08-2024 Lactobacillus crispatus+gasseri+j ensenii + Gardnerella vaginalis + Atopobium vaginae rRNA CARLOS+probe Ql (Vag fld) Not detected Normal Not detected [place] Comment on above: Order Comment: Speci men Type: SWAB Ordering Facility: [facility] Address: [address] [place] [address] Performed By: #### C VTV, BVAMP #### [facility] CLIA [id number] [address] [place] [address] [place] ANGIE/TRICHOMONAS NAATon 0 12-08-2024 C. glabrata RNA CARLOS+probe Ql (Vag fld) Detected Abnormal Not detected [place] Comment on above: Order Comment: Speci men Type: SWAB Ordering Facility: [facility] Address: [address] [place] [address] Performed By: #### C VTV, BVAMP #### [facility] CLIA [id number] [address] [place] [address] [place] Angie sp DNA CARLOS+probe Ql (Vag fld) Detected Abnormal Not detected [place] Comment on above: Order Comment: Speci men Type: SWAB Ordering Facility: [facility] Address: [address] [place] [address] Result Comment: The Angie species group target includes C. albicans, C. tropicalis, C. parapsilosis, and C. dubliniensis. Performed By: #### C VTV, BVAMP #### [facility] CLIA [id number] [address] [place] [address] [place] T. vaginalis DNA CARLOS+probe Ql (Unsp spec) Not detected Normal Not detected [place] Comment on above: Order Comment: Speci men Type: SWAB Ordering Facility: [facility] Address: [address] [place] [address] Performed By: #### C VTV, BVAMP #### [facility] CLIA [id number] [address] [place] [address] [place] CNOVon 12-08-2024 CNOV Office Visit (OBGYWM ) EVELIO MICHELLE ([id number]) 1960 F Date Time Provider Department 12/08/24 12:50 PM MARIANNE BOLTON OBTHONGWTrudy During your visit today, we recorded the following information about you: Blood pressure Weight 136/78 91.4 kg Marianne Bolton MD 12/08/2024 1:18 PM Signed Patient declined bakery team leader. Evelio Michelle is a 64 year old female who presents for problem visit swelling vaginal, irritation area for 3 days.. HPI: Had Augmentin for 7 days for a tooth infection. Now swollen and sore in the vaginal area. Not seeing discharge or bleeding. OB History Gravida2 Para2 Term2 Preterm0 AB0 Living2 SAB0 IAB0 Ectopic0 Multiple0 Live Births0 Head Charger History LMP: 07/18/2010, Ablation Age at Menarche: Age at First : Age at Menopause: Head Charger History Comments: Sexual Activity: Yes; Male Contraception: Vasectomy PAST MEDICAL HISTORY Diagnosis Date Acute gastritis without mention of hemorrhage Acute SC (HCC) 04/21/2014 Nausea and then chest pressure; sent from ER to [facility]; stent placed, Cholelithiasis without cholecystitis Coronary artery disease Eczema 03/30/2011 Esophageal reflux Esophagitis, unspecified Excessive or frequent menstruation Heavy periods External hemorrhoids without mention of complication HYPERGLYCEMIA 03/15/2006 Internal hemorrhoids without mention of complication Intestinal or peritoneal adhesions with obstruction (postoperative) (postinfection) (HCC) Irritable bowel syndrome Low HDL (under 40) rest of lipids have been fine NOCTURNAL RESTLESS LEGS 04/19/2006 PAST SURGICAL HISTORY Procedure Laterality Date COLONOSCOPY FLX DX W/COLLJ SPEC WHEN PFRMD 03/06/1996 Colonoscopy COLONOSCOPY W/BIOPSY SINGLE/MULTIPLE 07/03/11 CORONARY STENT EA VESSEL 03/2014 right coronary artery EGD TRANSORAL BIOPSY SINGLE/MULTIPLE 07/03/11 ESOPHAGOGASTRODUODENOSCOPY TRANSORAL DIAGNOSTIC 02/02/2020 EGD LAPS SURG CHOLECYSTECTOMY W/CHOLANGIOGRAPHY 07/09/2020 OFFICE ENDOMETRIAL ABLATION 07/31/2010 PAST SURGICAL HISTORY OF 03/01/2000 LEFT HEEL SPUR AND LIGAMENT SURGERY PAST SURGICAL HISTORY OF benign tumor removal right side- breast FAMILY HISTORY Problem Relation Age of Onset Arthritis Mother Alzheimer's Disease Father Arthritis Maternal Grandmother Heart Maternal Grandmother CHF Cancer Maternal Grandfather Social History Tobacco Use Smoking status: Never Smokeless tobacco: Never Vaping Use Vaping status: Never Used Substance Use Topics Alcohol use: No Drug use: No Current Outpatient Medications Medication Sig meloxicam (MOBIC) 7.5 mg tablet Take 1-2 tablets by mouth once daily as needed (severe sciatica pain). famotidine (PEPCID) 20 mg tablet Take 1 tablet by mouth two times a day. calcium carbonate/vitamin D3 (CALCIUM 600 + D ORAL) Take 2 tablets by mouth once daily. ergocalciferol, vitamin D2, (VITAMIN D2 ORAL) Take 1,000 mg by mouth. nitroglycerin sublingual (NITROSTAT) 0.4 mg SL tablet Dissolve 1 tablet under the tongue every 5 minutes as needed. aspirin, enteric coated 81 mg EC tablet Take 1 tablet by mouth once daily. Ramsay-3 Fatty Acids (FISH OIL) 500 mg cap Take 1 capsule by mouth twice daily. (Patient taking differently: Take 1,000 mg by mouth two times a day.) metoprolol tartrate, short acting, 25 mg tablet Take 0.5 tablets by mouth twice daily. lisinopril 2.5 mg tablet Take 1 tablet by mouth once daily. atorvastatin (LIPITOR) 40 mg tablet Take 1 tablet by mouth daily at bedtime. For cholesterol. No current facility-administered medications for this visit. Allergies As of Date: 12/08/2024 Allergen Noted Reaction LEVAQUIN [LEVOFLOXACIN] 10/02/2019 Other: See Comments Fully Assessed 09/01/2024 REVIEW OF SYSTEMS Abdomen: No bloating, early satiety, indigestion, or increased flatulence. No abdominal pain, nausea, vomiting, diarrhea, or constipation. Bladder: No dysuria, gross hematuria, urinary frequency, urinary urgency, or incontinence. Breast: No breast lumps, nipple d/c, overlying skin changes, redness or skin retraction. Expanded ROS: N/A Allergies and current medication updated:Yes SENSITIVE EXAM: The sensitive examination was discussed with the Patient or Patient's Authorized Clinical Nurse. As applicable, any other physician, advance practice provider, medical student, or other health professional student that will be observing or involved in the sensitive examination for educational or training purposes was discussed with the Patient or Authorized Clinical Nurse. The Patient or Authorized Clinical Nurse has agreed to proceed with the sensitive examination. (Sensitive examination includes inspection and/or palpation of the breasts, pelvis, prostate and anorectal regions). EXAM: LMP 07/18/2010 GENERAL: pleasant, female in no apparent distress HEENT: Normocephalic, atrau (more content not included)... Normal [place] PT D/C Summary (1)on 025 PT D/C Summary (1) [facility] [address] [place] [address] / REHABILITATION SERVICES DISCHARGE SUMMARY MR#: [id number] Acct: [id number] Name: EVELIO MICHELLE Rep #: [id number] : 1960 64 From: Abdi Craig PT, Cert. T, [facility] Referring Dr.: Dr. Nathanael Cabral DO Status: REG RCR Insurance: MEDICARE PART A B [facility] Discharge Summary D/C summary: It has been my pleasure to treat EVELIO MICHELLE referred by Dr. Nathanael Cabral DO, with the diagnosis of CHRONIC LEFT SIDE LOW BACK PAIN WITH LEFT SCIATICA ,LEFT HIP PAIN for a total of 5 visit(s). Discharge Date: 09/29/24 Please see the following information for a summary of their discharge status. Subjective Subjective: Doing good.. no pain . Can manage on own Pain L hip: Pain Intensity (Out of 10): 0 Overall Improvement % Improvement: 100 Objective Objective/Function: POSTURE:mild forward posture GAIT: reciprocal pattern PALAPTION: unremarkable NEURO: denies paresthesia/tingling , reflexes L3-4,L;4-5 ,L5-S1 1/3 FLEXABILITY: piriformis min loss ,hamstrings min loss MMT: quads/hams/hip 4/5 ,ankle 4/5 LUMBAR ROM: flexion WFL ,extension WFL ,side glides min loss Goals Goal 1:: Patient to be I with HEP and gym program Goal Progress: Goal Met Goal 2:: Patient to demonstrate 70% improvement with function and housework tasks Goal Progress: Goal Met Goal 3:: Patient has improved lumbar ROM for function of recovery with lifting Goal Progress: Goal Met Goal 4:: Patient to improve back oswestry score by 3 points to improve QOL Goal Progress: Goal Met Plan Plan: D/C D/C Information Discharge Comments: HEP AND GYM PROGRAM d/c sentence: If there are questions or concerns regarding this patient's physical therapy, please feel free to call me at [phone]. Thank you for the referral of this patient. Sincerely, Abdi Craig PT, Cert MDT, OCS Balance/Gait/Functional tests Balance/Special Test Scores Oswestry Low Back Score: 0 Improvement % Improvement: 100 09/29/24 1458 CC: Dr. Nathanael Cabral DO JLA Signed Normal [facility] Inital Evaluation (1) - PTon 09-14-2024 Inital Evaluation (1) - PT [facility] [address] [place] [address] / REHABILITATION SERVICES INITIAL EVALUATION MR#: [id number] Acct: [id number] Name: EVELIO MICHELLE Rep #: [id number] : 1960 64 From: Concepción Vasquez PT. MD Jiang, OCS Referring Dr.: Dr. Nathanael Cabral DO Status: REG RCR Insurance: MEDICARE PART A B [facility] Patient's Visit Information Visit Information Visit Information: EVELIO MICHELLE is a 64 year old F referred to Physical Therapy by Dr. Nathanael Cabral DO with a diagnosis of CHRONIC LEFT SIDE LOW BACK PAIN WITH LEFT SCIATICA ,LEFT HIP PAIN. Date of Evaluation: 09/14/24 Physical Therapist: Abdi Craig PT, Cert MDT, OCS Visit Plan Frequency: 2x /Week Duration: 4 Weeks Plan: PROGRESS TO GYM PROGRAM PT INTERVENTIONS DLS ,POSTURAL EX'S, BLE STRENGTHENING ,TO PROGRESSION TO STRENGTHENING Subjective Subjective: This 64 y/o female presents to physical therapy with lumbar radiculopathy and hip pain. Patient had these symptoms in Nov which was intermittent . Then more constant for 1 month. Seen family DR pascual prednisone for 1 week caused pain to go away. Patient and x-rays showed DDD. Patient pain located right hip groin to above knee. Pain aggravating standing ,some lifting. Alleviating factors medication. Bowel/bladder-. Cough/sneezing -. Symptoms affects sleeping intailly . Patient described as ache and spasms. Currently symptoms are better. Patient goals to learn HEP. Patient is member at SOCIAL: VOCATION: retired Objective Objective: POSTURE:mild forward posture GAIT: reciprocal pattern PALAPTION: unremarkable NEURO: denies paresthesia/tingling , reflexes L3-4,L;4-5 ,L5-S1 1/3 FLEXABILITY: piriformis min loss ,hamstrings min loss MMT: quads/hams/hip 4/5 ,ankle 4/5 LUMBAR ROM: flexion WFL ,extension WFL ,side glides min loss Special Tests L/S Slump test left side: Negative L/S Slump test right side: Negative L/S Left Straight Leg Raise: Negative L/S Right Straight Leg Raise: Negative Lumbar Standing: Flexion - Mechanical Response: No effect Lumbar Standing: Flexion - Symptoms During Testing: No effect Lumbar Standing: Flexion - Symptoms After Testing: No effect Lumbar Standing: Extension - Mechanical Response: No effect Lumbar Standing: Extension - Symptoms During Testing: No effect Lumbar Standing: Extension - Symptoms After Testing: No effect Lumbar Standing: Right Side Glides - Mechanical Response: No effect Lumbar Standing: Right Side [place] - Symptoms During Testing: No effect Lumbar Standing: Right Side [place] - Symptoms After Testing: No effect Lumbar Standing: Left Side [place] - Mechanical Response: No effect Lumbar Standing: Left Side [place] - Symptoms During Testing: No effect Lumbar Standing: Left Side [place] - Symptoms After Testing: No effect Balance/Special Test Scores Oswestry Low Back Score: 6 Goals Goal 1:: Patient to be I with HEP and gym program Goal Time Frame: 4-6 Weeks Goal 2:: Patient to demonstrate 70% improvement with function and housework tasks Goal Time Frame: 4-6 Weeks Goal 3:: Patient has improved lumbar ROM for function of recovery with lifting Goal Time Frame: 4-6 Weeks Goal 4:: Patient to improve back oswestry score by 3 points to improve QOL Goal Time Frame: 4-6 Weeks Rehabilitation Potential Physical Therapy Diagnosis: Patient had episode of lumbar pain with symptoms in left leg with pain is better thus will progress to HEP and gym program Rehabilitation Potential: Good Anticipated Interventions Patient/Client Instruction: Educate patient on: Condition and Plan of Care For the Purpose of:: To decrease pain, To increase ROM, To improve muscle performance and motor function, To improve ability to perform ADL's, To increase tolerance to activity/condition/position, To improve ability of physical actions for home/community/work/leisure, To improve health of tissue and To decrease soft tissue restriction Therapeutic Exercise to Include: Strength training, Postural training, Flexibilty training and Dynamic Lumbar Stabilization Comment: BLE For the Purpose of:: To decrease pain, To increase ROM, To improve ability to perform ADL's, To increase tolerance to activity/condition/position, To improve performance and independence with ADL's, To improve ability of physical actions for home/community/work/leisure, To improve health of tissue, To increase flexibility/ROM and To prevent re-injury Text: Thank you for the opportunity to evaluate your patient. For Medicare and Medicare HMO plans, please review the plan of care and approve it. It will need to be FAXED BACK to us at [phone] for Medicare purposes. For Medicare only, by signing this I certify the plan of care. Please let me know if there are questions or concerns regardin (more content not included)... [facility] EVELIO MICHELLE ([id number]) 1960 F Date Time Provider Department 09/06/[address] [facility] During your visit today, we recorded the following information about you: Nathanael Cabral, DO 09/06/2024 12:43 PM Signed Please inform patient that her XRAYS of her hips are normal without arthritis Her xrays of her lumbar spine/low back show a lot of degenerative disc changes and osteoarthritis as well as mild scoliosis changes as below UMBAR SPINE: The disc spaces appear well-preserved. Moderate degenerative changes in the posterior elements L3-S1. Mild anterior positioning of the L3 vertebral body on L4. Mild RIGHT convex rotoscoliosis No fractures or dislocations are seen. PELVIS AND Both hips : Pelvis: No fractures or dislocations are seen. Bone density appears well preserved. Hip joints appear well-preserved Right hip: No fractures or dislocations are seen. Left hip: No fractures or dislocations are seen. She can consider seeing PHYSICAL THERAPY or doing back stretches or chiropractic gentle adjustments and massage therapy. Also can consider seeing pain community education specialist for lumbar spine injections if pain worsens DO Steff Heller Linda M, LPN 09/06/2024 2:12 PM Signed Spoke with pt gave information provided. She would like to try physical therapy. Please fax to health [facility]. Nathanael Cabral DO 09/06/2024 4:29 PM Signed Please fax referral and notify patient DO Loki Heller Susan LPN 09/06/2024 4:59 PM Signed Referral Faxed to [facility]. Allergies As of Date: 09/06/2024 Noted Allergy Reaction LEVAQUIN (LEVOFLOXACIN) 10/02/2019 14 - Other: See Comments Comments: Arthralgias, headache Date Reviewed: 09/01/2024 Reviewed by: Nishi Manjarrez LPN - Fully Assessed Primary Visit Diagnosis:Chronic left-sided low back pain with left-sided sciatica [M54.42, G89.29] Other Visit Diagnosis:Left hip pain [M25.552] Order(s):CONSULT TO PHYSICAL THERAPY [9032] Order #: [id number]: 1 FUTURE Prescriptions as of 09/06/2024 - predniSONE (DELTASONE) 10 mg tablet With food, take in the AM. Take 4 tabs daily for 3 days, then 2 tabs daily for 3 days, then 1 tab daily for 3 days with food. - meloxicam (MOBIC) 7.5 mg tablet Take 1-2 tablets by mouth once daily as needed (severe sciatica pain). - famotidine (PEPCID) 20 mg tablet Take 1 tablet by mouth two times a day. - calcium carbonate/vitamin D3 (CALCIUM 600 + D ORAL) Take 2 tablets by mouth once daily. - ergocalciferol, vitamin D2, (VITAMIN D2 ORAL) Take 1,000 mg by mouth. - nitroglycerin sublingual (NITROSTAT) 0.4 mg SL tablet Dissolve 1 tablet under the tongue every 5 minutes as needed. - aspirin, enteric coated 81 mg EC tablet Take 1 tablet by mouth once daily. - Ramsay-3 Fatty Acids (FISH OIL) 500 mg cap Take 1 capsule by mouth twice daily. - metoprolol tartrate, short acting, 25 mg tablet Take 0.5 tablets by mouth twice daily. - lisinopril 2.5 mg tablet Take 1 tablet by mouth once daily. - atorvastatin (LIPITOR) 40 mg tablet Take 1 tablet by mouth daily at bedtime. For cholesterol. Problem List As Of Date 09/06/2024 Noted Resolved IRRITABLE COLON [K58.9] 07/24/2005 ESOPHAGEAL REFLUX [K21.9] 07/24/2005 SPASM OF MUSCLE [M62.838] 07/24/2005 OVERWEIGHT [E66.9] 07/24/2005 CARPAL TUNNEL SYNDROME [G56.00] 07/27/2005 Neck pain [M54.2] 03/01/2006 01/02/2022 EDEMA [R60.9] 03/01/2006 ABNORMAL WEIGHT GAIN [R63.5] 03/01/2006 SLEEP APNEA NOS [G47.30] 03/15/2006 HYPERGLYCEMIA [R79.89] 03/15/2006 NOCTURNAL RESTLESS LEGS [G25.89] 04/19/2006 Arthritis, multiple joint involvement [M12.9] 04/19/2006 MYALGIA AND MYOSITIS NOS [[id number]] 04/19/2006 SACROILIITIS NEC [M46.1] 12/20/2006 Eczema [L30.9] 03/30/2011 Special screening for malignant neoplasms, colo*07/03/2011 External hemorrhoids without mention of complic*07/03/2011 Internal hemorrhoids without mention of complic*07/03/2011 Intestinal adhes w/ obst [K56.50] 07/03/2011 Esophagitis, unspecified [K20.90] 07/03/2011 Acute gastritis without mention of hemorrhage [*07/03/2011 Thyromegaly [E01.0] 06/18/2017 Well adult exam [Z00.00] 06/18/2017 GERD with esophagitis [K21.00] 06/24/2018 Coronary artery disease involving [place] prajapati*06/24/2018 Routine physical examination [Z00.00] 06/24/2018 Multiple thyroid nodules [E04.2] 06/24/2018 Epigastric abdominal pain [R10.13] 06/24/2018 Bloating [R14.0] 06/24/2018 RUQ abdominal pain [R10.11] 07/04/2021 Dyslipidemia [E78.5] 07/04/2021 History of cholecystectomy [Z90.49] 07/04/2021 Obesity, Class I, BMI 30-34.9 [E66.811] 01/07/2023 Chronic left-sided low back pain with left-side*09/02/2024 Left hip pain [M25.552] 09/02/2024 Vitamin D deficiency [E55.9] 09/02/2024 IFG (impaired fasting glucose) [R73.01] 09/02/2024 Encounter S (more content not included)... [facility] [place] CNOVon 09-01-2024 CNOV Office Visit (FAMPWS ) EVELIO MICHELLE ([id number]) 1960 F Date Time Provider Department 09/01/24 9:00 AM [facility] During your visit today, we recorded the following information about you: Temperature Pulse Respiration Blood pressure 96.5 degrees 64/minute 16/minute 130/80 Weight Height 91.6 kg 1.68 m Nathanael Cabral DO 09/02/2024 8:11 AM Signed CC: Evelio Lizett Pearsonajay is a 64 year old female who presents to the office for pain concerns. HPI: Patient states that she has had about 6-8 weeks of symptoms of Left lateral hip and buttock pain and left low back pain, radiates to the left groin and anterior thigh as a spasm sensation and aching pain and radiating down to the left knee/lower leg, no injuries that she is aware of. Doesn't do heavy lifting, only gentle exercise with stationary bike and treadmill during the winter. No falls. No bowel or bladder changes or abdominal pain or constipation. No rashes or blisters of skin. She has been using tylenol without a lot of relief and trying to do stretches at home. Has tried ice and heating pad as well without relief. PAST MEDICAL HISTORY Diagnosis Date Acute gastritis without mention of hemorrhage Acute SC (HCC) 04/21/2014 Nausea and then chest pressure; sent from ER to [facility]; stent placed, Cholelithiasis without cholecystitis Coronary artery disease Eczema 03/30/2011 Esophageal reflux Esophagitis, unspecified Excessive or frequent menstruation Heavy periods External hemorrhoids without mention of complication HYPERGLYCEMIA 03/15/2006 Internal hemorrhoids without mention of complication Intestinal or peritoneal adhesions with obstruction (postoperative) (postinfection) (HCC) Irritable bowel syndrome Low HDL (under 40) rest of lipids have been fine NOCTURNAL RESTLESS LEGS 04/19/2006 PAST SURGICAL HISTORY Procedure Laterality Date COLONOSCOPY FLX DX W/COLLJ SPEC WHEN PFRMD 03/06/1996 Colonoscopy COLONOSCOPY W/BIOPSY SINGLE/MULTIPLE 07/03/11 CORONARY STENT EA VESSEL 03/2014 right coronary artery EGD TRANSORAL BIOPSY SINGLE/MULTIPLE 07/03/11 ESOPHAGOGASTRODUODENOSCOPY TRANSORAL DIAGNOSTIC 02/02/2020 EGD LAPS SURG CHOLECYSTECTOMY W/CHOLANGIOGRAPHY 07/09/2020 OFFICE ENDOMETRIAL ABLATION 07/31/2010 PAST SURGICAL HISTORY OF 03/01/2000 LEFT HEEL SPUR AND LIGAMENT SURGERY PAST SURGICAL HISTORY OF benign tumor removal right side- breast Current Outpatient Medications Medication Sig predniSONE (DELTASONE) 10 mg tablet With food, take in the AM. Take 4 tabs daily for 3 days, then 2 tabs daily for 3 days, then 1 tab daily for 3 days with food. meloxicam (MOBIC) 7.5 mg tablet Take 1-2 tablets by mouth once daily as needed (severe sciatica pain). famotidine (PEPCID) 20 mg tablet Take 1 tablet by mouth two times a day. calcium carbonate/vitamin D3 (CALCIUM 600 + D ORAL) Take 2 tablets by mouth once daily. ergocalciferol, vitamin D2, (VITAMIN D2 ORAL) Take 1,000 mg by mouth. nitroglycerin sublingual (NITROSTAT) 0.4 mg SL tablet Dissolve 1 tablet under the tongue every 5 minutes as needed. aspirin, enteric coated 81 mg EC tablet Take 1 tablet by mouth once daily. Ramsay-3 Fatty Acids (FISH OIL) 500 mg cap Take 1 capsule by mouth twice daily. (Patient taking differently: Take 1,000 mg by mouth two times a day.) metoprolol tartrate, short acting, 25 mg tablet Take 0.5 tablets by mouth twice daily. lisinopril 2.5 mg tablet Take 1 tablet by mouth once daily. atorvastatin (LIPITOR) 40 mg tablet Take 1 tablet by mouth daily at bedtime. For cholesterol. No current facility-administered medications for this visit. ALLERGIES Allergen Reactions Levaquin [Levofloxa* Other: See Comments Arthralgias, headache .soc ROS: See HPI PE: BP 130/80 Pulse 64 Temp (Src) 96.5 (Left Tympanic) Resp 16 Ht 5' 6.142" (1.68m) Wt 202 lb (91.6kg) LMP 07/18/2010 BMI 32.46 kg/(m2). Gen: AANDOX3, NAD, non-toxic appearing HEENT: PERRLA, EOMs intact b/l, nares without drainage, pharynx without erythema, exudate, lesions, or drainage. Uvula midline. Neck: No LAD, no thyromegaly, no meningismus. CV: RRR, no murmur Lungs: CTA b/l, no wheezing Skin: No rashes, lesions, or wounds on exposed skin. Reduced ROM lumbar spine due to pain with pain with sitting and extension of her low back Weakness in her left leg/thigh No edema, normal pulses ASSESSMENT/PLAN: 1. Chronic left-sided low back pain with left-sided sciatica - ICD9: 724.2, 724.3, 338.29, ICD10: M54.42, G89.29 (primary diagnosis) Sciatica - Ice for localized tenderness - Warm moist heat for 20 min three times a day - Prednisone burst- see orders - NSAIDS- see orders- rare use due to CAD history recommended as d/w her today - Xrays- see orders - XR LUMBAR GENERAL 3V AP/LAT/L5-S1 - XR HIP GENERAL 3V PELV/AP/LAT LEFT - CONSULT TO Y (more content not included)... [facility] [place] XR HIP 3V PELV+ AP/LAT LTon 09-01-2024 XR HIP 3V PELV+ AP/LAT LT * * *Final Report* * * DATE OF EXAM: Sep 01 2024 12:01PM [id number] - XR HIP 3V PELV+ AP/LAT LT / PROCEDURE REASON: multiple diagnoses * * * * Physician Interpretation * * * * LUMBAR SPINE/PELVIS AND BOTH HIPS HISTORY: Indication: Chronic left-sided low back pain with left-sided sciatica Chronic left-sided low back pain with left-sided sciatica Left hip pain PT STATES SHOOTING LEFT LATERAL HIP PAIN X 1 MONTH TECHNIQUE: Views obtained: XR HIP 3V PELV+ AP/LAT LT Comparison: Lumbar spine 07/08/2010 RESULT: Findings: LUMBAR SPINE: The disc spaces appear well-preserved. Moderate degenerative changes in the posterior elements L3-S1. Mild anterior positioning of the L3 vertebral body on L4. Mild RIGHT convex rotoscoliosis No fractures or dislocations are seen. PELVIS AND Both hips : Pelvis: No fractures or dislocations are seen. Bone density appears well preserved. Hip joints appear well-preserved Right hip: No fractures or dislocations are seen. Left hip: No fractures or dislocations are seen. IMPRESSION: Findings as discussed under Results portion of report. Detective Precinct: [facility] Transcribe Date/Time: Sep 04 2024 1:34P Dictated by : CELESTE CAZARES DO This examination was interpreted and the report reviewed and electronically signed by: CELESTE CAZARES DO on Sep 04 2024 1:35PM EST [id number] [facility] [place] XR LUMBAR 3V AP/LAT/L5-S1on 09-01-2024 XR LUMBAR 3V AP/LAT/L5-S1 * * *Final Report* * * DATE OF EXAM: Sep 01 2024 12:00PM [id number] - XR LUMBAR 3V AP/LAT/L5-S1 / PROCEDURE REASON: multiple diagnoses * * * * Physician Interpretation * * * * EXAM TITLE: XR LUMBAR 3V AP/LAT/L5-S1 EXAM DATE/TIME: 09/01/2024 12:00 PM COMPARISON: X-ray lumbar spine on 07/08/2010 CLINICAL INDICATION/HISTORY: Low back pain. TECHNIQUE: AP, lateral and cone down lateral views of the lumbar spine are presented. FINDINGS: There are five [id number] lumbar vertebrae. No acute fracture seen. There is grade 1 L3 on L4 anterolisthesis. L3-4 disc space narrowing is demonstrated. There is mild osteophyte formation. Facet arthrosis is present. IMPRESSION: Lumbar spine degenerative changes with L3-4 disc space narrowing. Detective Precinct: [facility] Transcribe Date/Time: Sep 04 2024 8:46A Dictated by : CARISSA GARCIA MD This examination was interpreted and the report reviewed and electronically signed by: CARISSA GARCIA MD on Sep 04 2024 8:52AM EST [id number] [facility] [place] DXA-AXIAL SKELETONon 023 [facility] STREP A MOLECULAR (POC)on Procedural Control Valid [facility] Strep A (POCT) Negative Negative [facility] KATLYN SCREENING W TOMOon 09-11 [facility] XR Knee AP and Lateral and M erchantson 2022 IMPRESSION: Healing comminuted right patellar fracture without interval complication. Detective Precinct: [facility] Transcribe Date/Time: 2022 2:02P Dictated by : GABRIELA DUMONT MD This examination was interpreted and the report reviewed and electronically signed by: GABRIELA DUMONT MD on 2022 2:05PM EST DIVISION OF RADIOLOGY * * *Final Report* * * DATE OF EXAM: 2022 9:35AM WOX [id number] - XR KNEE 3V AP/LAT/MERCHANT RT / PROCEDURE REASON: Closed nondisplaced comminuted fracture of right patella, initial encounter * * * * Physician Interpretation * * * * EXAMINATION: XR KNEE 3V AP/LAT/MERCHANT RT HISTORY: Closed nondisplaced comminuted fracture of right patella, subsequent encounter. TECHNIQUE: XR KNEE 3V AP/LAT/MERCHANT RT Laterality: RIGHT Number of different views (projections): 3 M: XB_1 COMPARISON: Comparison is made to prior study dated 14 May 2022 and 30 April 2022. RESULT: Standing frontal radiographs of the bilateral knees with, sunrise views and a lateral view of the right knee demonstrate healing comminuted intra-articular fracture of the right patella. Fracture lines are less apparent and remain anatomic in alignment. No interval complication. [id number] amount of residual right suprapatellar joint fluid noted. Mild narrowing of the medial tibiofemoral joint compartments is stable consistent with degenerative change. DIVISION [facility] RADIOLOGY [facility] * * *Final Report* * * DATE OF EXAM: 2022 9:35AM WOX 5209 - XR KNEE 3V AP/LAT/MERCHANT RT / PROCEDURE REASON: Closed nondisplaced comminuted fracture of right patella, initial encounter * * * * Physician Interpretation * * * * EXAMINATION: XR KNEE 3V AP/LAT/MERCHANT RT HISTORY: Closed nondisplaced comminuted fracture of right patella, subsequent encounter. TECHNIQUE: XR KNEE 3V AP/LAT/MERCHANT RT Laterality: RIGHT Number of different views (projections): 3 M: XB_1 COMPARISON: Comparison is made to prior study dated 14 May 2022 and 30 April 2022. RESULT: Standing frontal radiographs of the bilateral knees with, sunrise views and a lateral view of the right knee demonstrate healing comminuted intra-articular fracture of the right patella. Fracture lines are less apparent and remain anatomic in alignment. No interval complication. [id number]-[id number] amount of residual right suprapatellar joint fluid noted. Mild narrowing of the medial tibiofemoral joint compartments is stable consistent with degenerative change. IMPRESSION IMPRESSION: Healing comminuted right patellar fracture without interval complication. Detective Precinct: [facility] Transcribe Date/Time: 2022 2:02P Dictated by : GABRIELA DUMONT MD This examination was interpreted and the report reviewed and electronically signed by: GABRIELA DUMONT MD on 2022 2:05PM EST [facility] Radiology Study observation (narrative) [facility] XR Knee AP and Lateral and M erchantsOrdered By: Ccf Provider on 2022 [facility] US LEG VEIN DVT UNL VAS LABo n 05-07-2022 [facility] XR KNEE GENERAL 4V AP BOTH/P A BOTH/LAT/MERC RIGHTon 04-30-2022 [facility] XR Knee - right 4 Viewson IMPRESSION: Comminuted intra-articular fracture right patella without dislocation. Detective Precinct: [facility] Transcribe Date/Time: Apr 30 2022 6:50P Dictated by : GABRIELA DUMONT MD This examination was interpreted and the report reviewed and electronically signed by: GABRIELA DUMONT MD on Apr 30 2022 6:51PM [facility] DIVISION OF RADIOLOGY * * *Final Report* * * DATE OF EXAM: Apr 30 2022 6:42PM WOX 5203 - XR KNEE 4V AP/PA BOTH+LAT/CLEMENTINA RT / PROCEDURE REASON: Fall, initial encounter * * * * Physician Interpretation * * * * EXAMINATION: XR KNEE 4V AP/PA BOTH+LAT/CLEMENTINA RT HISTORY: Right knee pain. Fall, initial encounter. TECHNIQUE: XR KNEE 4V AP/PA BOTH+LAT/CLEMENTINA RT Laterality: RIGHT Number of different views (projections): 4 M: XB_1 COMPARISON: There are no prior relevant examinations available for comparison within the [facility]. RESULT: Standing frontal radiographs of the bilateral knees with bilateral PA flexion views, sunrise views and a lateral view of the right knee demonstrates a comminuted intra-articular fracture of the right patella there is no associated dislocation or other acute bony process. Moderate amount of suprapatellar joint fluid is present. DIVISION OF RADIOLOGY Provider, [facility] - 04/30/2022 * * *Final Report* * * DATE OF EXAM: Apr 30 2022 6:42PM WOX 5203 - XR KNEE 4V AP/PA BOTH+LAT/CLEMENTINA RT / PROCEDURE REASON: Fall, initial encounter * * * * Physician Interpretation * * * * EXAMINATION: XR KNEE 4V AP/PA BOTH+LAT/CLEMENTINA RT HISTORY: Right knee pain. Fall, initial encounter. TECHNIQUE: XR KNEE 4V AP/PA BOTH+LAT/CLEMENTINA RT Laterality: RIGHT Number of different views (projections): 4 M: XB_1 COMPARISON: There are no prior relevant examinations available for comparison within the [facility]. RESULT: Standing frontal radiographs of the bilateral knees with bilateral PA flexion views, sunrise views and a lateral view of the right knee demonstrates a comminuted intra-articular fracture of the right patella there is no associated dislocation or other acute bony process. Moderate amount of suprapatellar joint fluid is present. IMPRESSION IMPRESSION: Comminuted intra-articular fracture right patella without dislocation. Detective Precinct: [facility] Transcribe Date/Time: Apr 30 2022 6:50P Dictated by : GABRIELA DUMONT MD This examination was interpreted and the report reviewed and electronically signed by: GABRIELA DUMONT MD on Apr 30 2022 6:51PM EST [facility] Radiology Study observation (narrative) [facility] XR Knee - right 4 ViewsOrder ed By: Ccf Provider on 04-30-2022 [facility] XR FOOT GENERAL 3V AP/LAT/OB L LEFTon 02-05-2022 [facility] XR Foot - left AP and Latera l and obliqueon 02-05-2022 IMPRESSION: No acute osseous abnormality identified. Detective Precinct: [facility] Transcribe Date/Time: Feb 05 2022 7:50P Dictated by : LUZ MARIA STRONG MD This examination was interpreted and the report reviewed and electronically signed by: LUZ MARIA STRONG MD on Feb 05 2022 7:51PM EST ZZZ_DO_NOT_ USE_DIVISIO N OF RADIOLOGY * * *Final Report* * * DATE OF EXAM: Feb 05 2022 7:46PM WOX [id number] - XR FOOT 3V AP/LAT/OBL LT / PROCEDURE REASON: multiple diagnoses * * * * Physician Interpretation * * * * Left foot radiographs HISTORY: 61 years old Clinical information: Left foot pain Localized swelling of left foot pt with left dorsal foot pain x3-4 days, pt had a cut in the same area that per patient has mostly healed and she is unsure if the pain is related but there has been no other injury to her foot recently. TECHNIQUE: Images: XR FOOT 3V AP/LAT/OBL LT Comparison: March 01, 2021. RESULT: Findings: Narrowing at multiple interphalangeal joints. No fracture or dislocation identified. No soft tissue abnormality identified. ZZZ_DO_NOT_ USE_DIVISIO N OF RADIOLOGY Provider, [facility] - 02/05/2022 * * *Final Report* * * DATE OF EXAM: Feb 05 2022 7:46PM WOX 5336 - XR FOOT 3V AP/LAT/OBL LT / PROCEDURE REASON: multiple diagnoses * * * * Physician Interpretation * * * * Left foot radiographs HISTORY: 61 years old Clinical information: Left foot pain Localized swelling of left foot pt with left dorsal foot pain x3-4 days, pt had a cut in the same area that per patient has mostly healed and she is unsure if the pain is related but there has been no other injury to her foot recently. TECHNIQUE: Images: XR FOOT 3V AP/LAT/OBL LT Comparison: March 01, 2021. RESULT: Findings: Narrowing at multiple interphalangeal joints. No fracture or dislocation identified. No soft tissue abnormality identified. IMPRESSION IMPRESSION: No acute osseous abnormality identified. Detective Precinct: [facility] Transcribe Date/Time: Feb 05 2022 7:50P Dictated by : LUZ MARIA STRONG MD This examination was interpreted and the report reviewed and electronically signed by: LUZ MARIA STRONG MD on Feb 05 2022 7:51PM EST [facility] Radiology Study observation (narrative) [facility] XR Foot - left AP and Latera l and obliqueOrdered By: Ccf Provider on 02-05-2022 [facility] XR Cervical spine AP and Lat eral and obliqueon 12-11-2021 IMPRESSION: Cervical spine degenerative changes with C6-7 disc space narrowing. Detective Precinct: [facility] Transcribe Date/Time: Dec 11 2021 3:47P Dictated by : CARISSA GARCIA MD This examination was interpreted and the report reviewed and electronically signed by: CARISSA GARCIA MD on Dec 11 2021 3:49PM EST ZZZ_DO_NOT_ USE_DIVISIO N OF RADIOLOGY * * *Final Report* * * DATE OF EXAM: Dec 11 2021 3:34PM WOX 5311 - XR CERVICAL 4V AP/LAT/OBL / PROCEDURE REASON: Neck pain * * * * Physician Interpretation * * * * EXAM TITLE: XR CERVICAL 4V AP/LAT/OBL EXAM DATE/TIME: 12/11/2021 3:34 PM COMPARISON: None. CLINICAL INDICATION/HISTORY: Neck pain TECHNIQUE: AP, lateral, and oblique views of the cervical spine are presented. FINDINGS: No fractures or subluxations are noted. C6-7 disc space narrowing is demonstrated, with endplate sclerosis. There is moderate osteophyte formation in the lower cervical spine. The neural foramina are patent. The prevertebral soft tissues are normal. ZZZ_DO_NOT_ USE_DIVISIO N OF RADIOLOGY Provider, [facility] - 12/11/2021 * * *Final Report* * * DATE OF EXAM: Dec 11 2021 3:34PM WOX 5311 - XR CERVICAL 4V AP/LAT/OBL / PROCEDURE REASON: Neck pain * * * * Physician Interpretation * * * * EXAM TITLE: XR CERVICAL 4V AP/LAT/OBL EXAM DATE/TIME: 12/11/2021 3:34 PM COMPARISON: None. CLINICAL INDICATION/HISTORY: Neck pain TECHNIQUE: AP, lateral, and oblique views of the cervical spine are presented. FINDINGS: No fractures or subluxations are noted. C6-7 disc space narrowing is demonstrated, with endplate sclerosis. There is moderate osteophyte formation in the lower cervical spine. The neural foramina are patent. The prevertebral soft tissues are normal. IMPRESSION IMPRESSION: Cervical spine degenerative changes with C6-7 disc space narrowing. Detective Precinct: [facility] Transcribe Date/Time: Dec 11 2021 3:47P Dictated by : CARISSA GARCIA MD This examination was interpreted and the report reviewed and electronically signed by: CARISSA GARCIA MD on Dec 11 2021 3:49PM [facility] Radiology Study observation (narrative) [facility] XR Cervical spine AP and Lat eral and obliqueOrdered By: Ccf Provider on 12-11-2021 [facility] XR Foot - left AP and Latera l and obliqueon 03-01-2021 IMPRESSION: Findings consistent with healing fracture of the second toe proximal phalanx Detective Precinct: [facility] Transcribe Date/Time: Mar 01 2021 12:07P Dictated by : MARITO REED MD This examination was interpreted and the report reviewed and electronically signed by: MARITO REED MD on Mar 01 2021 12:10PM [facility] DIVISION OF RADIOLOGY * * *Final Report* * * DATE OF EXAM: Mar 01 2021 12:02PM WOX 5336 - XR FOOT 3V AP/LAT/OBL LT / PROCEDURE REASON: Injury of toe on left foot, initial encounter * * * * Physician Interpretation * * * * Left foot HISTORY: 60 years old Clinical information: Injury of toe on left foot, initial encounter Pt. states she stubbed Lt 2nd toe into a step a couple of weeks ago. Pain and swelling Lt 2nd toe into metatarsals. TECHNIQUE: Images: XR FOOT 3V AP/LAT/OBL LT Comparison: None. RESULT: Findings: Assessment of the LEFT second toe somewhat limited by technical factors including overlap with the other toes. There is deformity of the distal aspect of the second toe proximal phalanx consistent with an oblique, slightly displaced, intra-articular fracture, likely with adjacent medial callus. No subluxation. DIVISION OF RADIOLOGY Provider, Marixa Tirado [facility] - 03/01/2021 * * *Final Report* * * DATE OF EXAM: Mar 01 2021 12:02PM WOX 5336 - XR FOOT 3V AP/LAT/OBL LT / PROCEDURE REASON: Injury of toe on left foot, initial encounter * * * * Physician Interpretation * * * * Left foot HISTORY: 60 years old Clinical information: Injury of toe on left foot, initial encounter Pt. states she stubbed Lt 2nd toe into a step a couple of weeks ago. Pain and swelling Lt 2nd toe into metatarsals. TECHNIQUE: Images: XR FOOT 3V AP/LAT/OBL LT Comparison: None. RESULT: Findings: Assessment of the LEFT second toe somewhat limited by technical factors including overlap with the other toes. There is deformity of the distal aspect of the second toe proximal phalanx consistent with an oblique, slightly displaced, intra-articular fracture, likely with adjacent medial callus. No subluxation. 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 This test was developed and its performance characteristics determined by [facility] [place]. This test has been authorized by FDA under an Emergency Use Authorization (EUA). This test has been validated in accordance with the FDA's Guidance Document Policy for Diagnostics Testing in Laboratories Certified to Perform High Complexity Testing under CLIA prior to Emergency use Authorization for Coronavirus Disease 2019 during the Public Health Emergency" issued on October 21, 2019. Performing Laboratory: [facility] [address] [place] [address] Performed By: #### C [id number] #### [place] [address] Office Visiton 05-14-2017 Dietary management education, guidance, and counseling (procedure) yes Invalid Interpretation Code [employer] Work Phone: [phone] Documentation of current medications (procedure) Done Invalid Interpretation Code [employer] Work Phone: [phone] Fall risk assessment No Invalid Interpretation Code [employer] Work Phone: [phone] Tobacco use [facility] Never smoker Invalid Interpretation Code [employer] Work Phone: [phone] Clinical Lists Update: Prelo cracker off 09-18-2016 Left ventricular Ejection fraction 62 % Invalid Interpretation Code [employer] Work Phone: [phone] Lab Report: BNP,B-Type NATRI URETIC PEPTIDEon 07-13-2016 BNP 16.9 pg/mL Invalid Interpretation Code 0-100 [employer] Work Phone: [phone] Lab Report: Basic Metabolic Profile (BMP)on 07-13-2016 Anion gap 6 mmol/L Invalid Interpretation Code 5-15 [employer] Work Phone: [phone] BUN/Creatinine Ratio 16.9 RATIO Invalid Interpretation Code 10-20 [employer] Work Phone: [phone] Calcium 9.5 mg/dL Invalid Interpretation Code 8.5-10.1 [employer] Work Phone: [phone] Chloride 103 mmol/L Invalid Interpretation Code 98-107 [employer] Work Phone: [phone] CO2 31.0 mmol/L Invalid Interpretation Code 21.0-32.0 [employer] Work Phone: [phone] Creatinine 0.65 mg/dL Invalid Interpretation Code 0.55-1.02 [employer] Work Phone: [phone] eGFR (non-black) 99 mL/min/{1.73_m2} Invalid Interpretation Code >60 [employer] Work Phone: [phone] eGFR (non-black) 120 mL/min/{1.73_m2} Invalid Interpretation Code >60 [employer] Work Phone: [phone] Glucose 121 mg/dL High 70-110 [employer] Work Phone: [phone] Glucose mass conc 121 mg/dL High 70-110 [employer] Work Phone: [phone] Potassium 4.1 mmol/L Invalid Interpretation Code 3.5-5.1 [employer] Work Phone: [phone] Sodium 140 mmol/L Invalid Interpretation Code 136-145 [employer] Work Phone: [phone] Urea nitrogen 11 mg/dL Invalid Interpretation Code 7-18 [employer] Work Phone: [phone] Lab Report: CBC W/Diff, Auto matedon 07-13-2016 Absolute Neut 3.7 X10 3/UL Invalid Interpretation Code 2.0-7.7 [employer] Work Phone: [phone] Basophils/100 leukocytes 1.6 % High 0-1 [employer] Work Phone: [phone] Eosinophils/100 leukocytes 1.4 % Invalid Interpretation Code 0-5 [employer] Work Phone: [phone] Erythrocytes (RBC) 4.90 10*6/uL Invalid Interpretation Code 4.2-5.4 [employer] Phone: [phone] Hematocrit (HCT) 44.1 % Invalid Interpretation Code 37-47 [employer] Work Phone: [phone] Hemoglobin (HGB) 14.6 g/dL Invalid Interpretation Code 12.0-15.0 [employer] Work Phone: [phone] immature granulocytes, percentage of total cells, blood 0.000 % Invalid Interpretation Code 0.0-0.9 [employer] Work Phone: [phone] Immature granulocytes/100 WBC (Bld) 0.000 % Invalid Interpretation Code 0.0-0.9 [employer] Work Phone: [phone] Lymphocytes 1.37 X10 3/UL Invalid Interpretation Code 0.83-4.51 [employer] Work Phone: [phone] Lymphocytes/100 leukocytes 24.3 % Invalid Interpretation Code 19-41 [employer] Work Phone: [phone] MCH 29.8 pg Invalid Interpretation Code 27.0-32.0 [employer] Work Phone: [phone] MCHC 33.1 G/GL Invalid Interpretation Code 32-36 [employer] Work Phone: [phone] MCV 90.0 fL Invalid Interpretation Code 81-99 [employer] Work Phone: [phone] Monocytes/100 leukocytes 7.4 % Invalid Interpretation Code 0-10 [employer] Work Phone: [phone] neutrophil count, blood 3.7 X10 3/UL Invalid Interpretation Code 2.0-7.7 [employer] Work Phone: [phone] Neutrophils/100 leukocytes 65.3 % Invalid Interpretation Code 47-70 [employer] Work Phone: [phone] Platelets 151 10*3/mm3 Invalid Interpretation Code 150-450 [employer] Work Phone: [phone] PMV by Ludviina 10.8 fL Invalid Interpretation Code 6.2-12.0 [employer] Work Phone: [phone] RDW SD 40.0 fL Invalid Interpretation Code 35.1-43.9 [employer] Work Phone: [phone] RDW-CA 12.4 % Invalid Interpretation Code 11.6-14.6 [employer] Work Phone: [phone] red blood cell distribution width, size density 40.0 fL Invalid Interpretation Code 35.1-43.9 [employer] Work Phone: [phone] WBC (Leukocytes) 5.6 10*3/uL Invalid Interpretation Code 4.4-11.0 [employer] Work Phone: [phone] Lab Report: Magnesiumon 06-24 Magnesium 2.0 mg/dL Invalid Interpretation Code 1.8-2.4 [employer] Work Phone: [phone] Replaced Document: Stefanie MCLEAN Observationson 07-13-2016 BUN (urea nitrogen) Sinus Rhythm -Right bundle branch block. -Inferior infarct -age undetermined. ABNORMAL Invalid Interpretation Code [employer] Work Phone: [phone] EKG QRS axis 20 deg Invalid Interpretation Code [employer] Work Phone: [phone] GE use only - for [employer] import when terms are not otherwise specified 437 ms Invalid Interpretation Code [employer] Work Phone: [phone] P [place] 50 deg Invalid Interpretation Code [employer] Work Phone: [phone] P wave axis, electrocardiogram 50 deg Invalid Interpretation Code [employer] Work Phone: [phone] ME Interval 148 ms Invalid Interpretation Code [employer] Work Phone: [phone] ME interval, electrocardiogram 148 ms Invalid Interpretation Code [employer] Work Phone: [phone] Pulse (Heart Rate) 64 /min Invalid Interpretation Code [facility] Phone: [phone] QRS axis, electrocardiogram 20 deg Invalid Interpretation Code [employer] Phone: [phone] QRS Duration 140 ms Invalid Interpretation Code [employer] Work Phone: [phone] QRS duration, electrocardiogram 140 ms Invalid Interpretation Code [facility] Phone: [phone] QT Interval new path ms Invalid Interpretation Code [employer] Phone: [phone] QT interval, electrocardiogram new path ms Invalid Interpretation Code [employer] Phone: [phone] QTc [place] 437 ms Invalid Interpretation Code [employer] Phone: [phone] T [place] -14 deg Invalid Interpretation Code [employer] Work Phone: [phone] T wave axis, electrocardiogram -14 deg Invalid Interpretation Code [employer] Phone: [phone] Clinical Lists Update: Prelo cracker off 06-11-2016 Alanine aminotransferase (ALT) 21 U/L Invalid Interpretation Code [employer] Phone: [phone] Albumin 4.5 g/dL Invalid Interpretation Code [facility] Work Phone: [phone] Alkaline phosphatase (ALP) 57 U/L Invalid Interpretation Code [employer] Work Phone: [phone] Aspartate aminotransferase (AST) 27 U/L Invalid Interpretation Code [employer] Work Phone: [phone] Bilirubin (total) 1.5 mg/dL High [facility] Work Phone: [phone] Cholesterol 103 mg/dL Invalid Interpretation Code [facility] Work Phone: [phone] Cholesterol to HDL Ratio 3.43 {ratio} Invalid Interpretation Code [facility] Work Phone: [phone] Globulin 2.9 g/dL Invalid Interpretation Code [facility] Work Phone: [phone] HDL Cholesterol 30 mg/dL Low [facility] Work Phone: [phone] LDL Cholesterol 58 mg/dL Invalid Interpretation Code [facility] Work Phone: [phone] Protein 7.4 g/dL Invalid Interpretation Code [facility] Work Phone: [phone] Triglyceride 77 mg/dL Invalid Interpretation Code [facility] Work Phone: [phone] Clinical Lists Update: Prelo cracker off 05-28-2015 Bilirubin (direct) 0.6 mg/dL High [facility] Work Phone: [phone] Lab Report: CBC W/Diff, Auto matedon 10-12-2014 Absolute Neut 2.2 X10 3/UL Invalid Interpretation Code 2.0-7.7 [facility] Work Phone: [phone] Absolute Neutrophil count 2.2 X10 3/UL Invalid Interpretation Code 2.0-7.7 [facility] Work Phone: [phone] Lab Report: Lipid Profileon 10-12-2014 very low density lipoproteins 15 mg/dL Invalid Interpretation Code 5-40 [facility] Work Phone: [phone] Lab Report: Liver Profileon 10-12-2014 Globulin 3.6 g/dL Invalid Interpretation Code 2.7-4.2 [facility] Work Phone: [phone] Office Visit: [facility] 10-08-19 15 cardiac risk group C Invalid Interpretation Code [facility] Work Phone: [phone] General cardiovascular disease 10Y risk [#] [place] no N/A Invalid Interpretation Code [facility] Work Phone: [phone] Tobacco smoking status NHIS Never Invalid Interpretation Code [facility] Work Phone: [phone] Replaced Document: Stefanie Avila CG Observationson 05-24-2014 Pulse (Heart Rate) 449 ms Invalid Interpretation Code [facility] Work Phone: [phone] Clinical Lists Update: Prelo cracker off 04-22-2014 basophils as percent of blood leukocytes, manual count 0.3 % Invalid Interpretation Code [facility] Work Phone: [phone] eGFR (non-black) 92 mL/min/{1.73_m2} Invalid Interpretation Code [facility] Work Phone: [phone] eGFR (non-black) 112 mL/min/{1.73_m2} Invalid Interpretation Code [facility] Work Phone: [phone] eosinophils as percent of blood leukocytes, manual count 0.2 % Invalid Interpretation Code [facility] Work Phone: [phone] neutrophils, band form as percent of blood leukocytes, manual count 73.7 % Invalid Interpretation Code [facility] Work Phone: [phone] Vital Signs Date Time Vital Sign Value Performing Clinician Facility 02-13-2025 11:07-0400 Body height 170.[address] Nathanael Cabral DO Work Phone: [facility] 02-13-2025 11:07-0400 Body mass index (BMI) [Ratio] 31.3 kg/m2 Dr. Nathanael Cabral DO Work Phone: [facility] 02-13-2025 11:07-0400 Body weight 90.[address] Nathanael Cabral DO Work Phone: [facility] 02-13-2025 11:07-0400 Diastolic blood pressure 73 mm[Hg] Dr. Nathanael Cabral DO Work Phone: [facility] 02-13-2025 11:07-0400 Heart rate 70 /min Dr. Nathanael Cabral DO Work Phone: [facility] 02-13-2025 11:07-0400 Respiratory rate 16 /min Dr. Nathanael Cabral DO Work Phone: [facility] 02-13-2025 11:07-0400 Systolic blood pressure 133 mm[Hg] Dr. Nathanael Cabral DO Work Phone: [facility] 12-08-2024 13:02-0400 Body mass index (BMI) [Ratio] 32.37 kg/m2 Marianne Bolton MD Work Phone: [facility] 12-08-2024 13:02-0400 Body weight 91.35 kg Marianne Bolton MD Work Phone: [facility] 12-08-2024 13:02-0400 Diastolic blood pressure 78 mm[Hg] Marianne Bolton MD Work Phone: [facility] 12-08-2024 13:02-0400 Systolic blood pressure 136 mm[Hg] Marianne Bolton MD Work Phone: [facility] 09-01-2024 09:05-0500 Body height 168 cm Nathanael Cabral DO Work Phone: [facility] 09-01-2024 09:05-0500 Body mass index (BMI) [Ratio] 32.46 kg/m2 Nathanael Cabral DO Work Phone: [facility] 09-01-2024 09:05-0500 Body temperature 96.49 [degF] Nathanael Cabral DO Work Phone: [facility] 09-01-2024 09:05-0500 Body weight 91.63 kg Nathanael Cabral DO Work Phone: [facility] 09-01-2024 09:05-0500 Diastolic blood pressure 80 mm[Hg] Nathanael Cabral DO Work Phone: [facility] 09-01-2024 09:05-0500 Heart rate 64 /min Nathanael Cabral DO Work Phone: [facility] 09-01-2024 09:05-0500 Respiratory rate 16 /min Nathanael Cabral DO Work Phone: [facility] 09-01-2024 09:05-0500 Systolic blood pressure 130 mm[Hg] Nathanael Cabral DO Work Phone: [facility] 12-03-2023 13:35-0400 Body weight 93.35 kg Preeti Badillo IT TECHNICAL SPECIALIST.SUPERVISOR RESIDENTIAL Work Phone: [facility] 12-03-2023 13:35-0400 Diastolic blood pressure 64 mm[Hg] Preeti Badillo IT TECHNICAL SPECIALIST.SUPERVISOR RESIDENTIAL Work Phone: [facility] 12-03-2023 13:35-0400 Heart rate 68 /min Preeti Badillo IT TECHNICAL SPECIALIST.SUPERVISOR RESIDENTIAL Work Phone: [facility] 12-03-2023 13:35-0400 Respiratory rate 14 /min Preeti Badillo IT TECHNICAL SPECIALIST.SUPERVISOR RESIDENTIAL Work Phone: [facility] 12-03-2023 13:35-0400 Systolic blood pressure 136 mm[Hg] Preeti Badillo IT TECHNICAL SPECIALIST.SUPERVISOR RESIDENTIAL Work Phone: [facility] 04-30-2023 09:29-0400 Body temperature 100.29 [degF] Vick Pretty IT TECHNICAL SPECIALIST.SUPERVISOR RESIDENTIAL Work Phone: [facility] 04-30-2023 09:29-0400 Body weight 92.53 kg Vick Pretty IT TECHNICAL SPECIALIST.SUPERVISOR RESIDENTIAL Work Phone: [facility] 04-30-2023 09:29-0400 Diastolic blood pressure 80 mm[Hg] Vick Pretty IT TECHNICAL SPECIALIST.SUPERVISOR RESIDENTIAL Work Phone: [facility] 04-30-2023 09:29-0400 Heart rate 102 /min Vick Pretty IT TECHNICAL SPECIALIST.SUPERVISOR RESIDENTIAL Work Phone: [facility] 04-30-2023 09:29-0400 Respiratory rate 18 /min Vick Pretty IT TECHNICAL SPECIALIST.SUPERVISOR RESIDENTIAL Work Phone: [facility] 04-30-2023 09:29-0400 SaO2% (BldA) [Mass fraction] 94 % Vick Pretty IT TECHNICAL SPECIALIST.SUPERVISOR RESIDENTIAL Work Phone: [facility] 04-30-2023 09:29-0400 Systolic blood pressure 122 mm[Hg] Vicktono Pretty APRN.CNP Work Phone: [facility] 12-28-2022 08:23-0400 Body height 170.[address] Nathanael Cabral Work Phone: [facility] 12-28-2022 08:23-0400 Body mass index (BMI) [Ratio] 33 kg/m2 Dr. Nathanael Cabral Work Phone: [facility] 12-28-2022 08:23-0400 Body weight 95.[address] Nathanael Cabral Work Phone: [facility] 12-28-2022 08:23-0400 Diastolic blood pressure 81 mm[Hg] Dr. Nathanael Cabral Work Phone: [facility] 12-28-2022 08:23-0400 Heart rate 68 /min Dr. Nathanael Cabral Work Phone: [facility] 12-28-2022 08:23-0400 Respiratory rate 18 /min Dr. Nathanael Cabral Work Phone: [facility] 12-28-2022 08:23-0400 SaO2% (BldA) [Mass fraction] 97 % Dr. Nathanael Cabral Work Phone: [facility] 12-28-2022 08:23-0400 Systolic blood pressure 133 mm[Hg] Dr. Nathanael Cabral Work Phone: [facility] 12-24-2022 11:14-0400 Body height 168.9 cm Sofiya Dasilva MD Work Phone: [facility] 12-24-2022 11:14-0400 Body weight 95.25 kg Sofiya Dasilva MD Work Phone: [facility] 12-24-2022 11:14-0400 Diastolic blood pressure 70 mm[Hg] Sofiya Dasilva MD Work Phone: [facility] 12-24-2022 11:14-0400 Systolic blood pressure 116 mm[Hg] Sofiya Dasilva MD Work Phone: [facility] 04-30-2022 17:32-0400 Body temperature 97.59 [degF] Mary Grace Patton APRN.SUPERVISOR RESIDENTIAL Work Phone: [facility] 04-30-2022 17:32-0400 Diastolic blood pressure 76 mm[Hg] Mary Grace Patton APRN.SUPERVISOR RESIDENTIAL Work Phone: [facility] 04-30-2022 17:32-0400 Heart rate 89 /min Mary Grace Patton APRN.SUPERVISOR RESIDENTIAL Work Phone: [facility] 04-30-2022 17:32-0400 Respiratory rate 18 /min Mary Grace Patton APRN.SUPERVISOR RESIDENTIAL Work Phone: [facility] 04-30-2022 17:32-0400 SaO2% (BldA) [Mass fraction] 97 % Mary Grace Patton APRN.SUPERVISOR RESIDENTIAL Work Phone: [facility] 04-30-2022 17:32-0400 Systolic blood pressure 144 mm[Hg] Mary Grace Patton APRN.SUPERVISOR RESIDENTIAL Work Phone: [facility] 03-06-2022 11:05-0400 Body height 170.[address] Nathanael Cabral Work Phone: [facility] Work Phone: 03-06-2022 11:05-0400 Body mass index (BMI) [Ratio] 30.5 kg/m2 Dr. Nathanael Cabral Work Phone: [facility] Work Phone: 03-06-2022 11:05-0400 Body weight 88.[address] Nathanael Cabral Work Phone: [facility] Work Phone: 02-05-2022 19:18-0400 Body temperature 97.81 [degF] Francine Isaac APRN.SUPERVISOR RESIDENTIAL Work Phone: [facility] 02-05-2022 19:18-0400 Body weight 91.35 kg Francine Poncho IT TECHNICAL SPECIALIST.SUPERVISOR RESIDENTIAL Work Phone: [facility] 02-05-2022 19:18-0400 Diastolic blood pressure 80 mm[Hg] Francine Poncho IT TECHNICAL SPECIALIST.SUPERVISOR RESIDENTIAL Work Phone: [facility] 02-05-2022 19:18-0400 Heart rate 77 /min Francine Poncho IT TECHNICAL SPECIALIST.SUPERVISOR RESIDENTIAL Work Phone: [facility] 02-05-2022 19:18-0400 Respiratory rate 16 /min Francine Poncho IT TECHNICAL SPECIALIST.SUPERVISOR RESIDENTIAL Work Phone: [facility] 02-05-2022 19:18-0400 SaO2% (BldA) [Mass fraction] 99 % Francine Poncho IT TECHNICAL SPECIALIST.SUPERVISOR RESIDENTIAL Work Phone: [facility] 02-05-2022 19:18-0400 Systolic blood pressure 134 mm[Hg] Francine Ponhco IT TECHNICAL SPECIALIST.SUPERVISOR RESIDENTIAL Work Phone: [facility] 12-18-2021 11:00-0400 Diastolic blood pressure 78 mm[Hg] Arielle Cabral PT Work Phone: [facility] 12-18-2021 11:00-0400 Heart rate 67 /min Arielle Cabral PT Work Phone: [facility] 12-18-2021 11:00-0400 SaO2% (BldA) [Mass fraction] 98 % Arielle Cabral PT Work Phone: [facility] 12-18-2021 11:00-0400 Systolic blood pressure 128 mm[Hg] Arielle Cabral PT Work Phone: [facility] 05-14-2017 08:31-0400 BMI (Body Mass Index) 27.88 kg/m2 [facility] Work Phone: 05-14-2017 08:31-0400 BP Diastolic 68 mm[Hg] [facility] Work Phone: 05-14-2017 08:31-0400 BP Systolic 124 mm[Hg] [facility] Work Phone: 05-14-2017 08:31-0400 Height 170.18 cm [facility] Work Phone: 05-14-2017 08:31-0400 Pulse (Heart Rate) 68 /min [facility] Work Phone: 05-14-2017 08:31-0400 Respiratory Rate 16 /min [facility] Work Phone: 05-14-2017 08:31-0400 Weight 80.74 kg [facility] Work Phone: 07-13-2016 13:34-0500 BSA (Body Surface Area) 1.88 m2 [facility] Work Phone: Encounters Encounter Date Encounter Type Care Provider Facility Start: 06-28-2025 End: 06-28-2025 ambulatory GEM HUDDLESTON Facility:[facility] Start: 06-22-2025 End: 06-22-2025 ambulatory NATHANAEL CABRAL Facility:[facility] Start: 02-13-2025 End: 02-13-[address] Sukumar Becerra MD -[facility] Work Phone: Start: 02-13-2025 End: 02-13-[address] Nathanael Cabral DO Work Phone: [facility] Work Phone: Start: 12-11-2024 End: 02-10-2025 Follow-up encounter Norma Castorena APRN.CNP Work Phone: OB/Gynecology Start: 12-08-2024 End: 12-08-2024 ambulatory MARIANNE BOLTON Facility:[facility] Start: 12-08-2024 End: 12-08-2024 Office outpatient visit 15 minutes Marianne Bolton MD Work Phone: OB/Gynecology Comment on above: Vaginal irritation ( Primary Dx); Yeast vaginitis Start: 09-29-2024 End: 09-29-2024 ambulatory Nathanael Cabral Facility:[facility] Start: 09-06-2024 End: 09-06-2024 Telephone encounter Nathanael Cabral DO Work Phone: [facility] Start: 09-01-2024 End: 09-01-2024 ambulatory NATHANAEL CABRAL Facility:[facility] Start: 09-01-2024 End: 09-01-2024 Subsequent hospital visit by physician [facility] Work Phone: Radiology Comment on above: Chronic left-sided l ow back pain with left-sided sciatica [M54.42, G89.29] Start: 09-01-2024 End: 09-01-2024 Patient encounter procedure Nathanael Cabral DO Work Phone: [facility] Comment on above: Chronic left-sided l ow back pain with left-sided sciatica (Primary Dx); Left hip pain; Dyslipidemia; Multiple thyroid nodules; Vitamin D deficiency; IFG (impaired fasting glucose) Start: 09-01-2024 End: 09-01-2024 ambulatory SELF Facility:[facility] Start: 06-08-2024 End: 06-08-2024 Subsequent hospital visit by physician Screen Mammo [facility] Mammogram Start: 06-02-2024 End: 06-02-2024 ambulatory Immunization [facility] Nurse Dee Work Phone: [facility] Start: 06-02-2024 End: 06-02-2024 Patient encounter procedure Immunization Clinic Nurse Dee Work Phone: [facility] Start: 05-29-2024 End: 05-29-2024 Refill Nathanael Cabral DO Work Phone: [facility] Comment on above: Refill Request Start: 12-03-2023 End: 12-03-2023 Patient encounter procedure Preeti Badillo APRN.SUPERVISOR RESIDENTIAL Work Phone: [facility] Comment on above: Tick bite of abdomin al wall, initial encounter (Primary Dx) Start: 12-01-2023 ambulatory Nathanael rooney DO Work Phone: Internal Medicine [facility] Start: 05-30-2023 Refill Nathanael rooney DO Work Phone: [facility] Comment on above: Refill Request Start: 05-10-2023 End: 05-10-2023 Subsequent hospital visit by physician Bone Density [facility] Work Phone: Radiology Comment on above: Encounter for screen ing for osteoporosis [Z13.820] Start: 04-30-2023 End: 04-30-2023 Office outpatient visit 15 minutes Vcik Pretty APRN.CNP Work Phone: [facility] Comment on above: Sore throat (Primary Dx); Viral illness Start: 01-25-2023 Non-patient / Non-visit Dr. Sheri Cabral Work Phone: [facility] Start: 01-22-2023 End: 01-22-[address] Nathanael Cabral Work Phone: [facility] Work Phone: Start: 01-22-2023 End: 01-22-[address] Nathanael Cabral Work Phone: [facility]Cardiov[facility] Start: 12-28-2022 End: 12-28-[address] Nathanael Cabral Work Phone: [facility] Start: 12-24-2022 End: 12-24-2022 Patient encounter procedure Sofiya Dasilva MD Work Phone: OB/Gynecology Comment on above: Encounter for gyneco logical examination (general) (routine) without abnormal findings (Primary Dx); Encounter for screening for human papillomavirus (HPV); Pap smear for cervical cancer screening; Encounter for screening mammogram for breast cancer; Encounter for screening for osteoporosis Start: 12-24-2022 End: 12-24-2022 Patient encounter status Sofiya Dasilva MD Work Phone: OB/Gynecology Start: 10-30-2022 Telephone encounter Nathanael barrera DO Work Phone: [facility] Comment on above: Orders Start: 09-12-2022 Documentation procedure Mammog ramos Coordinator [facility] Start: 09-12-2022 Letter encounter Mammography Coordinator [facility] Department Start: 09-11-2022 End: 09-11-2022 Subsequent hospital visit by physician Screen Mammo [facility] Comment on above: Encounter for screen ing mammogram for malignant neoplasm of breast [Z12.31] Start: 06-22-2022 End: 06-22-2022 Patient encounter procedure Thiago Gomez MD Work Phone: Orthopaedics Comment on above: Closed nondisplaced comminuted fracture of right patella with routine healing, subsequent encounter (Primary Dx) Start: 2022 End: 2022 Subsequent hospital visit by physician [facility] Work Phone: Radiology Comment on above: Closed nondisplaced comminuted fracture of right patella, initial encounter [S82.044A] Start: 06-17-2022 Orders Only Thiago Gomez MD Work Phone: Orthopaedics Comment on above: Closed nondisplaced comminuted fracture of right patella, initial encounter (Primary Dx) Question prior to fo llow up appt. Start: 06-13-2022 End: 06-13-2022 ambulatory Immunization Clinic Nurse Dee Work Phone: [facility] Comment on above: Arrived Start: 05-15-2022 Refill Nathanael Campbell son DO Work Phone: [facility] Comment on above: Refill Request Start: 05-14-2022 End: 05-14-2022 Orders Only Thiago Gomez MD Work Phone: Orthopaedics Comment on above: Fall, initial encoun ter (Primary Dx) Closed displaced fra cture of right patella with routine healing, unspecified fracture morphology, subsequent encounter (Primary Dx); Closed nondisplaced fracture of right patella with routine healing, unspecified fracture morphology, subsequent encounter Closed nondisplaced fracture of right patella with routine healing, unspecified fracture morphology, subsequent encounter [S82.001D] Start: 05-07-2022 End: 05-07-2022 Patient encounter procedure Thiago Gomez MD Work Phone: Orthopaedics Comment on above: Right leg swelling ( Primary Dx); Fall, initial encounter; Closed nondisplaced comminuted fracture of right patella, initial encounter Start: 04-30-2022 End: 04-30-2022 Subsequent hospital visit by physician [facility] [place] Work Phone: Radiology Comment on above: Fall, initial encoun ter [W19.XXXA] Start: 04-30-2022 End: 04-30-2022 Patient encounter procedure Mary Grace Patton APRN.SUPERVISOR RESIDENTIAL Work Phone: [facility] Comment on above: Fall, initial encoun ter (Primary Dx); Fracture Start: 03-27-2022 End: 03-27-[address] Nathanael Cabral Work Phone: [facility] Start: 03-06-2022 End: 03-06-[address] Nathanael Cabral Work Phone: [facility] Start: 02-17-2022 Non-patient / Non-visit Dr. Sheri Cabral Work Phone: [facility] Start: 02-17-2022 End: 02-17-[address] Nathanael Cabral Work Phone: [facility] Start: 02-05-2022 End: 02-05-2022 Subsequent hospital visit by physician [facility] Work Phone: Radiology Comment on above: Left foot pain [M79. [id number]] Start: 02-05-2022 End: 02-05-2022 Patient encounter procedure Francine Isaac APRN.SUPERVISOR RESIDENTIAL Work Phone: [facility] Comment on above: Left foot pain (Prim brenton Dx); Localized swelling of left foot Start: 12-18-2021 End: 12-18-2021 ambulatory Arielle Cabral PT Work Phone: [facility] Comment on above: Neck pain Start: 12-11-2021 End: 12-11-2021 Subsequent hospital visit by physician [facility] Work Phone: Radiology Comment on above: Neck pain [M54.2] Start: 12-08-2021 Telephone encounter Nathanael barrera DO Work Phone: [facility] Comment on above: Neck Pain Start: 11-21-2021 Telephone encounter Nathanael barrera DO Work Phone: [facility] Comment on above: Medication affect Start: 11-14-2021 Telephone encounter Nathanael barrera DO Work Phone: [facility] Comment on above: Medication Question Start: 03-01-2021 End: 03-01-2021 Subsequent hospital visit by physician [facility] Work Phone: Radiology Comment on above: Closed displaced fra cture of distal phalanx of lesser toe of left foot, initial encounter [S92.532A] Start: 06-24-2018 Physical examination Nathanael crane Work Phone: [facility] Work Phone: Start: 06-18-2017 Patient encounter status Iam Cabral Work Phone: [facility] Work Phone: Procedures Date Procedure Procedure Detail Performing Clinician Start: 05-10-2023 Dxa bone density study 1/> sites axial bailey Dasilva MD Work Phone: Start: 04-30-2023 STREP A MOLECULAR (POC) Maia Gandara PA-C Work Phone: Start: 01-22-2023 Radionuclide imaging of perfusion of myocardium under exercise stress Dr. Nathanael Cabral Work Phone: Start: 01-21-2023 Lipid 1996 panel - Serum or Plasma Nathanael Cabral DO Work Phone: Start: 09-11-2022 KATLYN SCREENING W EFREN Dasilva MD Work Phone: Start: 09-11-2022 Mammography Mammography Coordinator Start: 2022 Radiologic examination knee 3 views Thiago Gomez MD Work Phone: Start: 06-13-2022 INFLUENZA VACCINE QUADRIVALENT 6 MO - 64 YRS IM Ashutosh Interiano MD Work Phone: Start: 05-07-2022 Dup-scan xtr veins unilateral/limited study Thiago Gomez MD Work Phone: Start: 04-30-2022 Radiologic exam knee complete 4/more views Mary Grace Patton IT TECHNICAL SPECIALIST.SUPERVISOR RESIDENTIAL Work Phone: Start: 03-27-2022 MRI of cervical spine Dr. Nathanael galo Work Phone: Start: 03-06-2022 X-ray of cervical spine Dr. Nathanael Campbell son Work Phone: Start: 02-05-2022 Radex foot complete minimum 3 views Francine Isaac IT TECHNICAL SPECIALIST.SUPERVISOR RESIDENTIAL Work Phone: Start: 12-11-2021 Radex spine cervical 4 or 5 views Lorna Zavala IT TECHNICAL SPECIALIST.SUPERVISOR RESIDENTIAL Work Phone: Start: 08-13-2021 Mammography Nathanael Cabral DO Work Phone: Start: 07-04-2021 History of cholecystectomy History of cholecystectomy Nathanael Cabral DO Work Phone: Start: 07-04-2021 Adult depression screening assessment Nathanael Cabral DO Work Phone: Start: 03-01-2021 Radex foot complete minimum 3 views Shon Griffin IT TECHNICAL SPECIALIST.SUPERVISOR RESIDENTIAL Work Phone: Start: 11-01-2020 Colonoscopy Nathanael Cabral DO Work Phone: Start: 05-14-2017 End: 05-14-2017 Follow Up Appt 6 months Beau Kraft MD Start: 05-14-2017 End: 05-14-2017 MMM Beau Kraft MD Start: 05-14-2017 End: 05-14-2017 Follow Up Appt 6 months Beau Kraft MD Start: 05-14-2017 End: 05-14-2017 MMM Beau Kraft MD Start: 10-27-2016 End: 10-27-2016 Follow Up Appt 6 months Gema mackey PA-C Work Phone: Start: 10-27-2016 End: 10-27-2016 PFM Gema Hadley PA-C Work Phone: Start: 10-27-2016 End: 10-27-2016 Follow Up Appt 6 months Gema mackey PA-C Work Phone: Start: 10-27-2016 End: 10-27-2016 PFM Gema Hadley PA-C Work Phone: Start: 07-13-2016 End: 07-13-2016 *BMP Gema Hadley PA-C Work Phone: Start: 07-13-2016 End: 07-13-2016 *CBC with Differential Gema turner PA-C Work Phone: Start: 07-13-2016 End: 07-13-2016 Ecg routine ecg w/least 12 lds w/i&r Gema Hadley PA-C Work Phone: Start: 07-13-2016 End: 07-13-2016 Follow Up Appt Other Gema cheung PA-C Work Phone: Start: 07-13-2016 End: 07-13-2016 Magnesium [Mass/volume] in Serum or Plasma Gema Hadley PA-C Work Phone: Start: 07-13-2016 End: 07-13-2016 Natriuretic peptide B [Mass/volume] in Blood Gema Hadley PA-C Work Phone: Start: 07-13-2016 End: 07-15-2016 Nuclear stress test -exercise Gema Hadley PA-C Work Phone: Start: 07-13-2016 End: 07-13-2016 *BMP Gema Hadley PA-C Work Phone: Start: 07-13-2016 End: 07-13-2016 *CBC with Differential Gema turner PA-C Work Phone: Start: 07-13-2016 End: 07-13-2016 BNP Gema Hadley PA-C Work Phone: Start: 07-13-2016 End: 07-13-2016 Electrocardiogram, complete Gema Hadley PA-C Work Phone: Start: 07-13-2016 End: 07-13-2016 Follow Up Appt Other Gema cheung PA-C Work Phone: Start: 07-13-2016 End: 07-13-2016 Magnesium Gema Hadley PA-C Work Phone: Start: 07-13-2016 End: 07-15-2016 Nuclear stress test -exercise Gema Hadley PA-C Work Phone: Start: 03-25-2016 End: 03-25-2016 Follow Up Appt 6 months Beau Kraft MD Start: 03-25-2016 End: 03-25-2016 MMM Beau Kraft MD Start: 03-25-2016 End: 03-25-2016 Follow Up Appt 6 months Beau Kraft MD Start: 03-25-2016 End: 03-25-2016 MMM Beau Kraft MD Start: 12-13-2015 End: 07-06-2016 *Hepatic Function Panel Gema mackey PA-C Work Phone: Start: 12-13-2015 End: 07-06-2016 Lipid 1996 panel - Serum or Plasma Gema Hadley PA-C Work Phone: Start: 12-13-2015 End: 07-06-2016 *Hepatic Function Panel Gema mackey PA-C Work Phone: Start: 12-13-2015 End: 07-06-2016 Lipid panel [AGGREGATE] Gema mackey PA-C Work Phone: Start: 08-09-2015 End: 08-09-2015 Ecg routine ecg w/least 12 lds w/i&r Gema Hadley PA-C Work Phone: Start: 08-09-2015 End: 08-09-2015 Follow Up Appt 6 months Gema mackey PA-C Work Phone: Start: 08-09-2015 End: 08-09-2015 PFM Gema Hadley PA-C Work Phone: Start: 08-09-2015 End: 08-09-2015 Electrocardiogram, complete Gema Hadley PA-C Work Phone: Start: 08-09-2015 End: 08-09-2015 Follow Up Appt 6 months Gema mackey PA-C Work Phone: Start: 08-09-2015 End: 08-09-2015 PFM Gema Hadley PA-C Work Phone: Start: 04-11-2015 End: 06-11-2015 *Hepatic Function Panel Gema mackey PA-C Work Phone: Start: 04-11-2015 End: 06-11-2015 Lipid 1996 panel - Serum or Plasma Gema Hadley PA-C Work Phone: Start: 04-11-2015 End: 06-11-2015 *Hepatic Function Panel Gema mackey PA-C Work Phone: Start: 04-11-2015 End: 06-11-2015 Lipid panel [AGGREGATE] Gema mackey PA-C Work Phone: Start: 02-15-2015 End: 02-16-2015 Documentation of current medications Beau Kraft MD Start: 02-15-2015 End: 02-15-2015 Follow Up Appt 6 months Beau Kraft MD Start: 02-15-2015 End: 02-15-2015 MMM Beau Kraft MD Start: 02-15-2015 End: 02-16-2015 Documentation of current medications Beau Kraft MD Start: 02-15-2015 End: 02-15-2015 Follow Up Appt 6 months Beau Kraft MD Start: 02-15-2015 End: 02-15-2015 MMM Beau Kraft MD Start: 10-08-2014 End: 10-12-2014 *CBC with Differential Gema turner PA-C Work Phone: Start: 10-08-2014 End: 10-12-2014 *Hepatic Function Panel Gema mackey PA-C Work Phone: Start: 10-08-2014 End: 10-09-2014 Documentation of current medications Gema Hadley PA-C Work Phone: Start: 10-08-2014 End: 10-08-2014 Follow Up Appt Other Gema cheung PA-C Work Phone: Start: 10-08-2014 End: 10-12-2014 Lipid 1996 panel - Serum or Plasma Gema Hadley PA-C Work Phone: Start: 10-08-2014 End: 10-08-2014 PFM Gema Hadley PA-C Work Phone: Start: 10-08-2014 End: 10-12-2014 *CBC with Differential Gema turner PA-C Work Phone: Start: 10-08-2014 End: 10-12-2014 *Hepatic Function Panel Gema mackey PA-C Work Phone: Start: 10-08-2014 End: 10-09-2014 Documentation of current medications Gema Hadley PA-C Work Phone: Start: 10-08-2014 End: 10-08-2014 Follow Up Appt Other Gema cheung PA-C Work Phone: Start: 10-08-2014 End: 10-12-2014 Lipid panel [AGGREGATE] Gema mackey PA-C Work Phone: Start: 10-08-2014 End: 10-08-2014 PFM Gema Hadley PA-C Work Phone: Start: 07-03-2014 End: 07-03-2014 Follow Up Appt 3 months Gema mackey PA-C Work Phone: Start: 07-03-2014 End: 07-03-2014 Follow Up Appt 6 months Gema mackey PA-C Work Phone: Start: 07-03-2014 End: 07-03-2014 PFM Gema Hadley PA-C Work Phone: Start: 07-03-2014 End: 07-03-2014 Follow Up Appt 3 months Gema mackey PA-C Work Phone: Start: 07-03-2014 End: 07-03-2014 Follow Up Appt 6 months Gema mackey PA-C Work Phone: Start: 07-03-2014 End: 07-03-2014 PFM Gema Hadley PA-C Work Phone: Start: 05-24-2014 End: 05-25-2014 Cardiac Rehab Beau Kraft MD Start: 05-24-2014 End: 06-21-2014 Cardiovascular stress test using treadmill Beau Kraft MD Start: 05-24-2014 End: 05-24-2014 Ecg routine ecg w/least 12 lds w/i&r Beau Kraft MD Start: 05-24-2014 End: 05-24-2014 Follow Up Appt 6 weeks Beau Kraft MD Start: 05-24-2014 End: 05-24-2014 MMM Beau Kraft MD Start: 05-24-2014 End: 05-25-2014 Cardiac Rehab Beau Kraft MD Start: 05-24-2014 End: 06-21-2014 Cardiovascular stress test using treadmill Beau Kraft MD Start: 05-24-2014 End: 05-24-2014 Electrocardiogram, complete Beau Kraft MD Start: 05-24-2014 End: 05-24-2014 Follow Up Appt 6 weeks Beau Kraft MD Start: 05-24-2014 End: 05-24-2014 MMM Beau Kraft MD Plan of Treatment Date Care Activity Detail Author Start: 2033 RSV Vaccine (1 - 1-d ose 75+ series) RSV Vaccine (1 - 1-dose 75+ series) [facility] Start: 11-01-2030 Colonoscopy COLONOSCOPY [facility] Start: 11-01-2030 COLORECTAL CANCER SCREENING COLORECTAL CANCER SCREENING [facility] Start: 11-01-2030 Screening for malign ant neoplasm of colon [facility] Start: 01-22-2028 Lipid 1996 panel - S chica or Plasma Lipid Screening [facility] Start: 01-22-2028 Lipid panel Lipid Screening [facility] Start: 01-22-2028 LIPID SCREEN LIPID SCREEN [facility] Start: 12-25-2027 HPV TESTING HPV TESTING [facility] Start: 12-25-2027 PAP TESTING PAP TESTING [facility] Start: 12-18-2026 Urine microalbumin profile [facility] Start: 07-02-2026 LIPID SCREEN LIPID SCREEN [facility] Start: 01-21-2026 DIABETES SCREEN DIABETES SCREEN [facility] Start: 06-01-2026 Diabetes Screening Diabetes Screenin g [facility] Start: 09-01-2025 Annual PCP Team On Site Manager joshua Disease Visit Annual PCP Team Chronic Disease Visit [facility] Start: 06-08-2025 Screening for malign ant neoplasm of breast Mammogram Screening [facility] Start: 12-02-2024 Annual PCP Team On Site Manager joshua Disease Visit Annual PCP Team Chronic Disease Visit [facility] Start: 12-02-2024 Covid-19 Vaccine () Covid-19 Vaccine () [facility] Comment on above: Postponed from 04/23 (Declined at this time) Start: 12-02-2024 Pneumococcal Vaccine : 50+ (1 of 1 - PCV) Pneumococcal Vaccine: 50+ (1 of 1 - PCV) [facility] Comment on above: Postponed from 06/19 (Declined at this time) Start: 12-02-2024 Pneumococcal Vaccine : 65+ (1 of 1 - PCV) Pneumococcal Vaccine: 65+ (1 of 1 - PCV) [facility] Comment on above: Postponed from 06/19 (Declined at this time) Start: 12-02-2024 RSV Vaccine (1 - 1-d ose 60+ series) RSV Vaccine (1 - 1-dose 60+ series) [facility] Comment on above: Postponed from 06/19 (Declined at this time) Start: 09-28-2024 End: 09-28-2024 Patient encounter procedure 09/28/2024 1:20 PM EST Office Visit OB/Gynecology [address] [place] [id number] Sofiya Yi MD [address] [place] [address] Annual OB/Gynecology Comment on above: Annual Start: 09-01-2024 End: 12-01-2024 25-hydroxyvitamin D3 [Mass/volume] in Serum or Plasma VITAMIN D 25 HYDROXY Lab Routine Vitamin D deficiency Expected: 09/01/2024, Expires: 12/01/2024 [facility] Comment on above: Expected: 09/01/2024 , Expires: 12/01/2024 Start: 09-01-2024 End: 12-01-2024 CBC W Auto Differential panel - Blood COMPLETE BLOOD COUNT AND DIFFERENTIAL Lab Routine Dyslipidemia Multiple thyroid nodules Expected: 09/01/2024, Expires: 12/01/2024 [facility] Comment on above: Expected: 09/01/2024 , Expires: 12/01/2024 Start: 09-01-2024 End: 12-01-2024 Cobalamin (Vitamin B12) [Mass/volume] in Serum or Plasma VITAMIN B12 Lab Routine Multiple thyroid nodules IFG (impaired fasting glucose) Expected: 09/01/2024, Expires: 12/01/2024 [facility] Comment on above: Expected: 09/01/2024 , Expires: 12/01/2024 Start: 09-01-2024 End: 12-01-2024 Comprehensive metabolic 2000 panel - Serum or Plasma COMPREHENSIVE METABOLIC PANEL Lab Routine Dyslipidemia Multiple thyroid nodules Expected: 09/01/2024, Expires: 12/01/2024 [facility] Comment on above: Expected: 09/01/2024 , Expires: 12/01/2024 Start: 09-01-2024 End: 12-01-2024 Hemoglobin A1c in Blood HEMOGLOBIN A1C Lab Routine IFG (impaired fasting glucose) Expected: 09/01/2024, Expires: 12/01/2024 [facility] Comment on above: Expected: 09/01/2024 , Expires: 12/01/2024 Start: 09-01-2024 End: 12-01-2024 Lipid 1996 panel - Serum or Plasma LIPID PANEL BASIC Lab Routine Dyslipidemia Expected: 09/01/2024, Expires: 12/01/2024 [facility] Comment on above: Expected: 09/01/2024 , Expires: 12/01/2024 Start: 09-01-2024 End: 12-01-2024 Thyrotropin [Units/volume] in Serum or Plasma THYROID STIMULATING HORMONE Lab Routine Multiple thyroid nodules Expected: 09/01/2024, Expires: 12/01/2024 [facility] Comment on above: Expected: 09/01/2024 , Expires: 12/01/2024 Start: 09-01-2024 End: 09-01-2024 Patient encounter procedure 09/01/2024 9:00 AM EST Office Visit [facility] [address] [place] [address] Nathanael Cabral, DO [address] [place] [address] check up [facility] Comment on above: check up Start: 08-23-2024 Advance Directive Discussion Advance Directive Discussion [facility] Start: 07-02-2024 DIABETES SCREEN DIABETES SCREEN [facility] Start: 06-08-2024 End: 06-08-2024 Patient encounter procedure 06/08/2024 1:30 PM EDT Appointment Mammogram [address] [place] [address] katlyn with [facility] Comment on above: katlyn with [facility] Start: 06-02-2024 End: 06-02-2024 Patient encounter procedure 06/02/2024 1:30 PM EDT Immunization [facility] [address] [place] [address] [place], Immunization Clinic Nurse [address] [place] [address] Receive flu vaccine [facility] Comment on above: Receive flu vaccine Start: 04-23-2024 Covid-19 Vaccine ( season) Covid-19 Vaccine ( season) [facility] Start: 04-23-2024 Influenza vaccination Influenza Vacc ine (#1) [facility] Start: 01-22-2024 Hepatitis B surface antibody level LDL CHOLESTEROL [facility] Start: 01-05-2024 ANNUAL PCP TEAM CARPENTER JOSHUA DISEASE VISIT ANNUAL PCP TEAM CHRONIC DISEASE VISIT [facility] Start: 09-11-2023 Mammography [facility] Start: 09-11-2023 Screening for malign ant neoplasm of breast Mammogram Screening [facility] Start: 08-23-2023 Advance Directive Discussion Advance Directive Discussion [facility] Start: 08-23-2023 Behavioral Health Screening Behavioral Health Screening [facility] Start: 08-04-2023 HPV TESTING HPV TESTING [facility] Start: 08-04-2023 PAP TESTING PAP TESTING [facility] Start: 2023 Advance Directive Discussion Advance Directive Discussion [facility] Start: 2023 Pneumococcal Vaccine : 65+ (1 - PCV) Pneumococcal Vaccine: 65+ (1 - PCV) [facility] Start: 05-23-2023 Medicare Annual Well ness Visit Medicare Annual Wellness Visit [facility] Start: 04-30-2023 End: 05-14-2023 Influenza virus A and B RNA and SARS-CoV-2 (COVID-19) N gene panel - Respiratory specimen by CARLOS with probe detection COVID & INFLUENZA A/B NAAT, ROUTINE Microbiology Routine Sore throat Viral illness Expected: 04/30/2023, Expires: 05/14/2023 [facility] Work Phone: Comment on above: Expected: 04/30/2023 , Expires: 05/14/2023 Start: 04-23-2023 Covid-19 Vaccine () Covid-19 Vaccine () [facility] Start: 04-23-2023 Influenza vaccination [facility] Start: 12-29-2022 Hzv zoster vacc recombinant adjuvanted im njx ZOSTER VACCINE, RECOMBINANT (SHINGRIX) Immunization/Injection Routine Need for vaccination Expected: 12/29/2022 (Approximate) [facility] Work Phone: Comment on above: Expected: 12/29/2022 (Approximate) Start: 12-25-2022 SHINGRIX VACCINE (2 of 2) SHINGRIX VACCINE (2 of 2) [facility] Start: 12-11-2022 ANNUAL PCP TEAM CARPENTER JOSHUA DISEASE VISIT ANNUAL PCP TEAM CHRONIC DISEASE VISIT [facility] Start: 08-23-2022 DEPRESSION ASSESSMENT DEPRESSION ASS ESSMENT [facility] Start: 08-13-2022 Mammography MAMMOGRAM [facility] Start: 07-04-2022 Adult depression screening assessment DEPRESSION SCREENING [facility] Start: 07-04-2022 ANNUAL PCP TEAM CARPENTER JOSHUA DISEASE VISIT ANNUAL PCP TEAM CHRONIC DISEASE VISIT [facility] Start: 07-02-2022 Hepatitis B surface antibody level LDL CHOLESTEROL [facility] Start: 04-23-2022 Influenza vaccination INFLUENZA (#1) [facility] Start: 02-28-2022 COVID-19 VACCINE (5 - Booster for Pfizer series) COVID-19 VACCINE (5 - Booster for Pfizer series) [facility] Start: 08-23-2021 DEPRESSION ASSESSMENT DEPRESSION ASS ESSMENT [facility] Start: 2018 RSV Vaccine (1 - 1-d ose 60+ series) RSV Vaccine (1 - 1-dose 60+ series) [facility] Start: 11-16-2017 End: 11-16-2017 Appointment Appointment [facility] Work Phone: Start: 05-14-2017 End: 05-14-2017 Follow Up Appt 6 months Follow Up Appt 6 months [facility] Work Phone: Start: 05-14-2017 End: [facility]-14-[facility] Work Phone: Start: 05-14-2017 End: 05-14-2017 Follow Up Appt 6 months Follow Up Appt 6 months [facility] Work Phone: Start: 05-14-2017 End: 05-14-2017 [facility] Work Phone: Start: 01-04-2017 End: 07-06-2016 *Hepatic Function Panel *Hepatic Function Panel [facility] Work Phone: Start: 01-04-2017 End: 07-06-2016 Lipid panel [AGGREGATE] *Lipid Profile CC PCP [facility] Work Phone: Start: 01-04-2017 End: 07-06-2016 *Hepatic Function Panel *Hepatic Function Panel [facility] Work Phone: Start: 01-04-2017 End: 07-06-2016 Lipid panel [AGGREGATE] *Lipid Profile CC PCP [facility] Work Phone: Start: 10-27-2016 End: 10-27-2016 Follow Up Appt 6 months Follow Up Appt 6 months [facility] Work Phone: Start: 10-27-2016 End: 10-27-2016 [facility] Work Phone: Start: 10-27-2016 End: 10-27-2016 Follow Up Appt 6 months Follow Up Appt 6 months [facility] Work Phone: Start: 10-27-2016 End: 10-27-2016 [facility] Work Phone: Start: 07-13-2016 End: 07-13-2016 *BMP *BMP [facility] Work Phone: Start: 07-13-2016 End: 07-13-2016 *CBC with Differential *CBC with Differential [facility] Work Phone: Start: 07-13-2016 End: 07-13-2016 BNP *Brain Natriuretic Peptide BNP [facility] Work Phone: Start: 07-13-2016 End: 07-13-2016 Ecg routine ecg w/least 12 lds w/i&r EKG (In office) [facility] Work Phone: Start: 07-13-2016 End: 07-13-2016 Follow Up Appt Other Follow Up Appt Other [facility] Work Phone: Start: 07-13-2016 End: 07-13-2016 Magnesium *Magnesium [facility] Work Phone: Start: 07-13-2016 End: 07-14-2016 Nuclear stress test -exercise Nuclear stress test -exercise [facility] Work Phone: Start: 07-13-2016 End: 07-13-2016 *BMP *BMP [facility] Work Phone: Start: 07-13-2016 End: 07-13-2016 *CBC with Differential *CBC with Differential [facility] Work Phone: Start: 07-13-2016 End: 07-13-2016 BNP *Brain Natriuretic Peptide BNP [facility] Work Phone: Start: 07-13-2016 End: 07-13-2016 Electrocardiogram, complete EKG (In office) [facility] Work Phone: Start: 07-13-2016 End: 07-13-2016 Follow Up Appt Other Follow Up Appt Other [facility] Work Phone: Start: 07-13-2016 End: 07-13-2016 Magnesium *Magnesium [facility] Work Phone: Start: 07-13-2016 End: 07-14-2016 Nuclear stress test -exercise Nuclear stress test -exercise [employer] [facility] Work Phone: Start: 03-25-2016 End: 03-25-2016 Follow Up Appt 6 months Follow Up Appt 6 months [facility] [employer] Work Phone: Start: 03-25-2016 End: 03-25-2016 MMM MMM [facility] Work Phone: Start: 03-25-2016 End: 03-25-2016 Follow Up Appt 6 months Follow Up Appt 6 months [facility] [employer] Work Phone: Start: 03-25-2016 End: 03-25-2016 MMM MMM [employer] Work Phone: Start: 12-13-2015 End: 07-06-2016 *Hepatic Function Panel *Hepatic Function Panel [facility] [employer] Work Phone: Start: 12-13-2015 End: 07-06-2016 Lipid panel [AGGREGATE] *Lipid Profile CC PCP [employer] Work Phone: Start: 12-13-2015 End: 07-06-2016 *Hepatic Function Panel *Hepatic Function Panel [facility] [employer] Work Phone: Start: 12-13-2015 End: 07-06-2016 Lipid panel [AGGREGATE] *Lipid Profile CC PCP [employer] Work Phone: Start: 08-09-2015 End: 08-09-2015 Ecg routine ecg w/least 12 lds w/i&r EKG (In office) [employer] [employer] [facility] Work Phone: Start: 08-09-2015 End: 08-09-2015 Follow Up Appt 6 months Follow Up Appt 6 months [facility] [employer] Work Phone: Start: 08-09-2015 End: 08-09-2015 PFM PFM [employer] Work Phone: Start: 08-09-2015 End: 08-09-2015 Electrocardiogram, complete EKG (In office) [employer] Work Phone: Start: 08-09-2015 End: 08-09-2015 Follow Up Appt 6 months Follow Up Appt 6 months [facility] [facility] Work Phone: Start: 08-09-2015 End: 08-09-2015 PFM PFM [facility] Work Phone: Start: 04-11-2015 End: 06-11-2015 *Hepatic Function Panel *Hepatic Function Panel [facility] Work Phone: Start: 04-11-2015 End: 06-11-2015 Lipid panel [AGGREGATE] *Lipid Profile CC PCP [facility] Work Phone: Start: 04-11-2015 End: 06-11-2015 *Hepatic Function Panel *Hepatic Function Panel [facility] Work Phone: Start: 04-11-2015 End: 06-11-2015 Lipid panel [AGGREGATE] *Lipid Profile CC PCP [facility] Work Phone: Start: 02-15-2015 End: 02-15-2015 Follow Up Appt 6 months Follow Up Appt 6 months [facility] Work Phone: Start: 02-15-2015 End: 02-15-2015 MMM MMM [facility] Work Phone: Start: 02-15-2015 End: 02-15-2015 Follow Up Appt 6 months Follow Up Appt 6 months [facility] Work Phone: Start: 02-15-2015 End: 02-15-2015 MMM MMM [facility] Work Phone: Start: 10-08-2014 End: 10-12-2014 *CBC with Differential *CBC with Differential [facility] Work Phone: Start: 10-08-2014 End: 10-12-2014 *Hepatic Function Panel *Hepatic Function Panel [facility] Work Phone: Start: 10-08-2014 End: 10-08-2014 Follow Up Appt Other Follow Up Appt Other [facility] Work Phone: Start: 10-08-2014 End: 10-12-2014 Lipid panel [AGGREGATE] *Lipid Profile CC PCP [facility] Work Phone: Start: 10-08-2014 End: 10-08-2014 PFM PFM [facility] Work Phone: Start: 10-08-2014 End: 10-12-2014 *CBC with Differential *CBC with Differential [facility] Work Phone: Start: 10-08-2014 End: 10-12-2014 *Hepatic Function Panel *Hepatic Function Panel [facility] Work Phone: Start: 10-08-2014 End: 10-08-2014 Follow Up Appt Other Follow Up Appt Other [facility] Work Phone: Start: 10-08-2014 End: 10-12-2014 Lipid panel [AGGREGATE] *Lipid Profile CC [facility]CP [facility] Work Phone: Start: 10-08-2014 End: 10-08-2014 PFM PFM [facility] Work Phone: Start: 07-03-2014 End: 07-03-2014 Follow Up Appt 3 months Follow Up Appt 3 months [facility] Work Phone: Start: 07-03-2014 End: 07-03-2014 Follow Up Appt 6 months Follow Up Appt 6 months [facility] Work Phone: Start: 07-03-2014 End: 07-03-2014 PFM PFM [facility] Work Phone: Start: 07-03-2014 End: 07-03-2014 Follow Up Appt 3 months Follow Up Appt 3 months [facility] Work Phone: Start: 07-03-2014 End: 07-03-2014 Follow Up Appt 6 months Follow Up Appt 6 months [facility] Work Phone: Start: 07-03-2014 End: 07-03-2014 PFM PFM [facility] Work Phone: Start: 05-24-2014 End: 05-25-2014 Cardiac Rehab Cardiac Rehab [facility] Work Phone: Start: 05-24-2014 End: 05-24-2014 Cardiovascular stress test using treadmill Treadmill stress test (no imaging) [facility] Work Phone: Start: 05-24-2014 End: 05-24-2014 Ecg routine ecg w/least 12 lds w/i&r EKG (In office) [facility] Phone: Start: 05-24-2014 End: 05-24-2014 Follow Up Appt 6 weeks Follow Up Appt 6 weeks [facility] Phone: Start: 05-24-2014 End: 05-24-2014 MMM MMM [facility] Phone: Start: 05-24-2014 End: 05-25-2014 Cardiac Rehab Cardiac Rehab [facility] Work Phone: Start: 05-24-2014 End: 05-24-2014 Cardiovascular stress test using treadmill Treadmill stress test (no imaging) [facility] Phone: Start: 05-24-2014 End: 05-24-2014 Electrocardiogram, complete EKG (In office) [facility] Work Phone: Start: 05-24-2014 End: 05-24-2014 Follow Up Appt 6 weeks Follow Up Appt 6 weeks [facility] Phone: Start: 05-24-2014 End: 05-24-2014 MMM MMM [facility] Work Phone: Start: 2008 Pneumococcal Vaccine : 50+ (1 of 1 - PCV) Pneumococcal Vaccine: 50+ (1 of 1 - PCV) [facility] Start: 2008 SHINGRIX VACCINE (1 of 2) SHINGRIX VACCINE (1 of 2) [facility] Start: 2003 COLOGUARD (FIT-DNA) COLOGUARD (FIT-D NA) [facility] Start: [address] COLONOGRAPHY [facility] Start: 2003 FECAL OCCULT BLOOD FECAL OCCULT BLOO D [facility] Start: 2003 Screening for malign ant neoplasm of colon [facility] Start: 2003 SIGMOIDOSCOPY SIGMOIDOSCOPY [facility] Start: 1976 Anxiety Screening Anxiety Screening [facility] Start: 1976 Depression Screening Depression Scre ening [facility] Start: 1976 HEPATITIS C SCREENING HEPATITIS C [facility] Start: 1976 Hepatitis C screening Hepatitis C [facility] Start: 1976 HIV SCREENING HIV SCREENING [facility] Start: 1976 HIV screening HIV Screening [facility] BACTERIAL VAGINOSIS NAAT BACTERI AL VAGINOSIS NAAT Lab Routine Vaginal irritation 12/08/2024 1:19 PM EDT [facility] ANGIE/TRICHOMONAS NAAT ANGIE /TRICHOMONAS NAAT Lab Routine Vaginal irritation 12/08/2024 1:19 PM EDT [facility] Work Phone: End: 12-30-2024 DBT Breast - bilateral screening KATLYN SCREENING W EFREN Radiology Routine 1 Occurrences starting 12/01/2023 until 12/30/2024 [facility] Work Phone: Comment on above: 1 Occurrences starti ng 12/01/2023 until 12/30/2024 DBT Breast - bilater al screening KATLYN SCREENING W EFREN Radiology Routine 06/08/2024 1:48 PM EDT [facility] Work Phone: End: 01-23-2024 DXA-AXIAL SKELETON DXA-AXIAL SKELETON Radiology Routine Encounter for screening for osteoporosis 1 Occurrences starting 12/24/2022 until 01/23/2024 [facility] Work Phone: Comment on above: 1 Occurrences starti ng 12/24/2022 until 01/23/2024 Lipid 1996 panel - S chica or Plasma [facility] End: 01-23-2024 KATLYN SCREENING W EFREN KATLYN SCREENING W EFREN Radiology Routine Encounter for screening mammogram for breast cancer 1 Occurrences starting 12/24/2022 until 01/23/2024 [facility] Work Phone: Comment on above: 1 Occurrences starti ng 12/24/2022 until 01/23/2024 PAP TEST PAP TEST Lab [facility] alley Encounter for screening for human papillomavirus (HPV) Pap smear for cervical cancer screening 12/24/2022 11:57 AM EDT [facility] Work Phone: Patient Education HYPERLIPIDEMIA , HEART%20HEALTHY%20DIET, CHOLESTEROL%20AND%20YOUR %20HEALTH [facility] Work Phone: End: 06-13-2023 XR KNEE POST OP 3V AP/LAT/MERCHANT RIGHT XR KNEE POST OP 3V AP/LAT/MERCHANT RIGHT Radiology Routine Closed nondisplaced fracture of right patella with routine healing, unspecified fracture morphology, subsequent encounter 1 Occurrences starting 05/14/2022 until 06/13/2023 [facility] Work Phone: Comment on above: 1 Occurrences starti ng 05/14/2022 until 06/13/2023 End: 05-14-2022 XR KNEE POST OP 3V AP/LAT/MERCHANT RIGHT [facility] Work Phone: Comment on above: 1 Occurrences starti ng 05/14/2022 until 05/14/2022 End: 07-17-2023 XR KNEE POST OP 3V AP/LAT/MERCHANT RIGHT XR KNEE POST OP 3V AP/LAT/MERCHANT RIGHT Radiology Routine Closed nondisplaced comminuted fracture of right patella, initial encounter 1 Occurrences starting 06/17/2022 until 07/17/2023 [facility] Work Phone: Comment on above: 1 Occurrences starti ng 06/17/2022 until 07/17/2023 End: 10-01-2025 XR Lumbar spine 3 Views XR LUMBAR GENERAL 3V AP/LAT/L5-S1 Radiology Routine Chronic left-sided low back pain with left-sided sciatica 1 Occurrences starting 09/01/2024 until 10/01/2025 [facility] Work Phone: Comment on above: 1 Occurrences starti ng 09/01/2024 until 10/01/2025 XR Lumbar spine 3 Views XR LUMBA R GENERAL 3V AP/LAT/L5-S1 Radiology Routine Chronic left-sided low back pain with left-sided sciatica 09/01/2024 12:00 PM EST [facility] End: 10-01-2025 XR Pelvis and Hip - left AP and Lateral frog XR HIP GENERAL 3V PELV/AP/LAT LEFT Radiology Routine Chronic left-sided low back pain with left-sided sciatica Left hip pain 1 Occurrences starting 09/01/2024 until 10/01/2025 [facility] Comment on above: 1 Occurrences starti ng 09/01/2024 until 10/01/2025 XR Pelvis and Hip - left AP and Lateral frog XR HIP GENERAL 3V PELV/AP/LAT LEFT Radiology Routine Chronic left-sided low back pain with left-sided sciatica Left hip pain 09/01/2024 12:01 PM EST [facility] Immunizations Immunization Date Immunization Notes Care Provider Margarette burns 06-02-2024 influenza, high dose seasonal, preservative-free Immunization [place] Work Phone: [facility] 06-15-2023 influenza virus vaccine, unspecified formulation Xr [place] Work Phone: [facility] 01-28-2023 zoster vaccine recombinant Vick Pretty APRN.SUPERVISOR RESIDENTIAL Work Phone: [facility] Work Phone: 10-30-2022 zoster vaccine recombinant Nathanael Cabral DO Work Phone: [facility] Work Phone: 06-13-2022 influenza, injectabl e, quadrivalent, contains preservative Immunization [place] Work Phone: [facility] 06-13-2022 influenza virus vaccine, unspecified formulation Nathanael Cabral DO Work Phone: [facility] 07-04-2021 influenza, injectabl e, quadrivalent, contains preservative Nathanael Cabral DO Work Phone: [facility] Work Phone: 05-19-2020 influenza, injectabl e, quadrivalent, contains preservative Nathanael Cabral DO Work Phone: [facility] 05-16-2019 influenza, injectabl e, quadrivalent, preservative free Nathanael Cabral DO Work Phone: [facility] 05-16-2019 influenza, seasonal, injectable Nathanael Cabral DO Work Phone: [facility] 05-31-2018 influenza, injectabl e, quadrivalent, preservative free Nathanael Cabral DO Work Phone: [facility] 05-31-2018 influenza, seasonal, injectable Nathanael Cabral DO Work Phone: [facility] 06-06-2017 influenza, injectabl e, quadrivalent, preservative free Nathanael Cabral DO Work Phone: [facility] 06-06-2017 influenza, seasonal, injectable Nathanael Cabral DO Work Phone: [facility] 06-01-2017 influenza, seasonal, injectable Nathanael Cabral DO Work Phone: [facility] Work Phone: 12-18-2016 tetanus toxoid, reduced diphtheria toxoid, and acellular pertussis vaccine, adsorbed Nathanael Cabral DO Work Phone: [facility] Work Phone: 06-11-2016 influenza, seasonal, injectable Nathanael Cabral DO Work Phone: [facility] Work Phone: 05-31-2014 influenza, seasonal, injectable Nathanael Cabral DO Work Phone: [facility] 12-20-2006 tetanus and diphther ia toxoids, adsorbed, preservative free, for adult use (2 Lf of tetanus toxoid and 2 Lf of diphtheria toxoid) Nathanael Cabral DO Work Phone: [facility] Payers Date Payer Category Payer Self-pay [id number] 2023 Unknown MMO MMO MEDICARE SUPPLEMENT [id number] 2023-Present [phone] [address] [place] [address] Indemnity [id number] 2023 Medicare [id number] 2023 Medicare [id number] 2019 Private Health Insurance [employer] A ETNA CHOICE POS II [id number] 2019-Present [phone] [address] [place] [address] POS [id number] 2019 Private Health Insurance [id number] 2013 Unknown [id number] Private Health Insurance [id number] Unknown [id number] Unknown [id number] Social History Date Type Detail Facility Start: 07-02-2023 Tobacco smoking stat [facility] Never smoked tobacco [facility] Start: 11-12-2021 End: 12-08-2024 Alcohol intake Current non-drinker of alcohol (finding) [facility] Start: 12-27-2019 End: 04-19-2020 History SDOH Alcohol Frequency 1 [facility] Start: 12-27-2019 End: 04-19-2020 History SDOH Alcohol Std Drinks 98 [facility] Start: 12-27-2019 History SDOH Social Connections Phone 5 [facility] Start: 12-27-2019 History SDOH Social Connections Membership 2 [facility] Start: 12-27-2019 History SDOH Social Connections Living 4 [facility] Start: 12-27-2019 History SDOH Physica l Activity MPS 3 [facility] Start: 1960 Sex Assigned At Not on file [facility] Start: 01-30-2021 End: 06-22-2022 Exposure to SARS-CoV-2 (event) Not sure [facility] Start: 02-11-2022 End: 12-28-2022 Tobacco smoking status NHIS Unknown if ever smoked [facility] Start: 1960 Sex Assigned At Female W [facility] Start: 12-27-2019 End: 12-24-2022 History of Social function [facility] Start: 12-27-2019 End: 12-24-2022 Social connection and isolation panel [facility] How often do you get together with friends or relatives? Patient refused [facility] Do you belong to any clubs or organizations such as catholic groups, unions, fraternal or athletic groups, or school groups? No [facility] Are you now , , , , never or living with a partner? [facility] How often to you hav e a drink containing alcohol? Never [facility] Do you feel stress - tense, restless, nervous, or anxious, or unable to sleep at night because your mind is troubled all the time - these days [OSQ] Not at all [facility] Medical Equipment Procedure Code Equipment Code Equipment Original Text Equipment Identifier Dates Total cholecystectomy with exploration of common bile duct CLIP,Génie NumériqueCK FDA Start: 07-09-2020 Total cholecystectomy with exploration of common bile duct CLIP,Génie NumériqueJENNIFER FDA Start: 07-09-2020 Total cholecystectomy with exploration of common bile duct CLIP,Génie NumériqueCK FDA Start: 07-09-2020 Total cholecystectomy with exploration of common bile duct CLIP,Génie NumériqueCK FDA Start: 07-09-2020 Total cholecystectomy with exploration of common bile duct CLIP,Génie NumériqueCK FDA Start: 07-09-2020 Total cholecystectomy with exploration of common bile duct CLIP,Génie NumériqueCK FDA Start: 07-09-2020 Total cholecystectomy with exploration of common bile duct CLIP,Génie NumériqueCK FDA Start: 07-09-2020 Total cholecystectomy with exploration of common bile duct CLIP,Génie NumériqueJENNIFER FDA Start: 07-09-2020 Functional Status Date Assessment Result Facility 05-25-2014 Are you deaf, or do you have serious difficulty hearing No 05/25/2014 10:46 AM Sandra Tellez LPN No [facility] 05-25-2014 Are you blind, or do you have serious difficulty seeing, even when wearing glasses No 05/25/2014 10:46 AM Sandra Tellez LPN No [facility] 05-25-2014 Do you have serious difficulty walking or climbing stairs No 05/25/2014 10:46 AM Sandra Tellez LPN No [facility] 05-25-2014 Do you have difficul ty dressing or bathing No 05/25/2014 10:46 AM Sandra Tellez LPN No [facility] 05-25-2014 Because of a physica l, mental, or emotional condition, do you have difficulty doing errands alone such as visiting a physician's office or shopping No 05/25/2014 10:46 AM Sandra Tellez LPN No [facility] Mental Status Date Assessment Result Facility 05-25-2014 Because of a physica l, mental, or emotional condition, do you have serious difficulty concentrating, remembering, or making decisions No 05/25/2014 10:46 AM Sandra Telelz LPN [facility] Clinical Notes 03-01-2006 to 06-28-2025 Marianne Bolton MD - 12/08/2024 12:58 PM EDTTelephone Encounter - Nishi Degroot LPN - 09/06/2024 4:59 PM ESTTelephone Encounter - Nishi Manjarrez LPN - 09/06/2024 4:59 PM EST Note Date & Type Note Facility 06-28-2025 Note HNO ID: [id number] Author: GEM HUDDLESTON APRN.SUPERVISOR RESIDENTIAL Service: ? Author Type: Nurse Practitioner Type: Progress Notes Filed: 06/28/2025 13:12 Note Text: URGENT CARE DEE Michelle is a 65 year old female. Patient presents with: Musculoskeletal Problem: R hand wrist swelling and pain hand wrist and going up arm, painted a room x 2, x 4 days Musculoskeletal Problem Associated symptoms include joint swelling. Pertinent negatives include no fever or rash. The patient is a 65-year-old female presenting with right wrist pain and swelling. Right Wrist Pain and Swelling: - Onset after painting a room for two days, with a day of rest in between. - Noticed swelling yesterday, prompting removal of rings. - Pain has progressively worsened, with shooting pain radiating up the arm. - Pain present at rest and with movement; able to move fingers. - Alternating use of ice and heat for relief. - Taking Tylenol for pain management. - Suspects arthritis history. Review of Systems Constitutional: Negative for fever. Musculoskeletal: Positive for joint swelling. Skin: Negative for color change, rash and wound. Musculoskeletal: (+) right wrist pain, (+) right wrist swelling, (+) right arm shooting pain, (+) pain with wrist movement Objective BP 152/83 Pulse 64 Temp 36.1 ?C (97 ?F) Resp 20 Wt 91 kg (200 lb 9.9 oz) LMP 07/18/2010 SpO2 99% BMI 32.24 kg/m? PAST MEDICAL HISTORY Diagnosis Date - Acute gastritis without mention of hemorrhage - Acute SC (HCC) 04/21/2014 Nausea and then chest pressure; sent from ER to [facility]; stent placed, - Cholelithiasis without cholecystitis - Coronary artery disease - Eczema 03/30/2011 - Esophageal reflux - Esophagitis, unspecified - Excessive or frequent menstruation Heavy periods - External hemorrhoids without mention of complication - HYPERGLYCEMIA 03/15/2006 - Internal hemorrhoids without mention of complication - Intestinal or peritoneal adhesions with obstruction (postoperative) (postinfection) (HCC) - Irritable bowel syndrome - Low HDL (under 40) rest of lipids have been fine - NOCTURNAL RESTLESS LEGS 04/19/2006 PAST SURGICAL HISTORY Procedure Laterality Date - COLONOSCOPY FLX DX W/COLLJ SPEC WHEN PFRMD 03/06/1996 Colonoscopy - COLONOSCOPY W/BIOPSY SINGLE/MULTIPLE 07/03/11 - CORONARY STENT EA VESSEL 03/2014 right coronary artery - EGD TRANSORAL BIOPSY SINGLE/MULTIPLE 07/03/11 - ESOPHAGOGASTRODUODENOSCOPY TRANSORAL DIAGNOSTIC 02/02/2020 EGD - LAPS SURG CHOLECYSTECTOMY W/CHOLANGIOGRAPHY 07/09/2020 - OFFICE ENDOMETRIAL ABLATION 07/31/2010 - PAST SURGICAL HISTORY OF 03/01/2000 LEFT HEEL SPUR AND LIGAMENT SURGERY - PAST SURGICAL HISTORY OF benign tumor removal right side- breast ALLERGIES Levaquin [Levofloxacin] MEDICATIONS - famotidine (PEPCID) 20 mg tablet Take 1 tablet by mouth two times a day. - calcium carbonate/vitamin D3 (CALCIUM 600 + D ORAL) Take 2 tablets by mouth once daily. - ergocalciferol, vitamin D2, (VITAMIN D2 ORAL) Take 1,000 mg by mouth. - nitroglycerin sublingual (NITROSTAT) 0.4 mg SL tablet Dissolve 1 tablet under the tongue every 5 minutes as needed. - aspirin, enteric coated 81 mg EC tablet Take 1 tablet by mouth once daily. - Ramsay-3 Fatty Acids (FISH OIL) 500 mg cap Take 1 capsule by mouth twice daily. (Patient taking differently: Take 1,000 mg by mouth two times a day.) - metoprolol tartrate, short acting, 25 mg tablet Take 0.5 tablets by mouth twice daily. - lisinopril 2.5 mg tablet Take 1 tablet by mouth once daily. - atorvastatin (LIPITOR) 40 mg tablet Take 1 tablet by mouth daily at bedtime. For cholesterol. - predniSONE (DELTASONE) 10 mg tablet Take 4 tablets by mouth once daily for 3 days, THEN 3 tablets once daily for 3 days, THEN 1 tablet once daily for 3 days. - meloxicam (MOBIC) 7.5 mg tablet Take 1-2 tablets by mouth once daily as needed (severe sciatica pain). (Patient not taking: Reported on 06/28/2025) FAMILY HISTORY Problem Relation Age of Onset - Arthritis Mother - Alzheimer's Disease Father - Arthritis Maternal Grandmother - Heart Maternal Grandmother CHF - Cancer Maternal Grandfather SOCIAL HISTORY[1] Physical Exam Vitals and nursing note reviewed. Constitutional: General: She is not in acute distress. Appearance: Normal appearance. She is not ill-appearing. Musculoskeletal: General: Swelling and tenderness present. No deformity or signs of injury. Right wrist: Swelling and tenderness present. No deformity, effusion, lacerations, bony tenderness or crepitus. Decreased range of motion. Normal pulse. Arms: Skin: Capillary Refill: Capillary refill takes less than 2 seconds. Findings: No bruising, erythema or rash. Neurological: Mental Status: She is alert. { 1. Acute pain of right wrist (M25.531) 2. Right wrist tendonitis (M77.8) - Acute right wrist pain and swelling following repetitive (more content not included)... [place] 06-28-2025 Note HNO ID: [id number] Author: COURTNEY WHARTON RT(Nyasia) Service: ? Author Type: Jet Engine Mechanic Type: Progress Notes Filed: 06/28/2025 11:51 Note Text: Radiology Service Progress Note PATIENT NAME: Evelio Michelle DATE OF SERVICE: June 28, 2025 TIME: 11:50 AM PATIENT IDENTITY VERIFICATION COMPLETED USING TWO (2) IDENTIFIERS: Name and Date of confirmed by patient verbally. FALL SCREENING: Has the patient had 2 falls in the last year or 1 fall with injury or currently using an Ambulatory Assistive Device (Walker, Cane, Wheelchair, Crutches, etc.)? No PATIENT GENDER DATA: Assigned female at . status: : No status: NO. PATIENT RELEVANT IMPLANT DATA REVIEWED: Not Applicable PATIENT PRESENTS WITH AN IMPLANTABLE OR ATTACHED CHARGE AIDE: No RADIOLOGY DEPARTMENT: General X-ray: Exam(s) Completed: Upper Extremity X-Ray(s): Wrist, right PERIPHERAL IV DATA: Not applicable SIGNED BY: RT Sandra(R) June 28, 2025 11:50 AM [place] 12-08-2024 Note HNO ID: [id number] Author: MARIANNE BOLTON MD Service: ? Author Type: Physician Type: Progress Notes Filed: 12/08/2024 13:18 Note Text: Patient declined bakery team leader. Evelio Michelle is a 64 year old female who presents for problem visit swelling vaginal, irritation area for 3 days.. HPI: Had Augmentin for 7 days for a tooth infection. Now swollen and sore in the vaginal area. Not seeing discharge or bleeding. OB History Gravida2 Para2 Term2 Preterm0 AB0 Living2 SAB0 IAB0 Ectopic0 Multiple0 Live Births0 Head Charger History LMP: 07/18/2010, Ablation Age at Menarche: Age at First : Age at Menopause: Head Charger History Comments: Sexual Activity: Yes; Male Contraception: Vasectomy PAST MEDICAL HISTORY Diagnosis Date Acute gastritis without mention of hemorrhage Acute SC (HCC) 04/21/2014 Nausea and then chest pressure; sent from ER to [facility]; stent placed, Cholelithiasis without cholecystitis Coronary artery disease Eczema 03/30/2011 Esophageal reflux Esophagitis, unspecified Excessive or frequent menstruation Heavy periods External hemorrhoids without mention of complication HYPERGLYCEMIA 03/15/2006 Internal hemorrhoids without mention of complication Intestinal or peritoneal adhesions with obstruction (postoperative) (postinfection) (HCC) Irritable bowel syndrome Low HDL (under 40) rest of lipids have been fine NOCTURNAL RESTLESS LEGS 04/19/2006 PAST SURGICAL HISTORY Procedure Laterality Date COLONOSCOPY FLX DX W/COLLJ SPEC WHEN PFRMD 03/06/1996 Colonoscopy COLONOSCOPY W/BIOPSY SINGLE/MULTIPLE 07/03/11 CORONARY STENT EA VESSEL 03/2014 right coronary artery EGD TRANSORAL BIOPSY SINGLE/MULTIPLE 07/03/11 ESOPHAGOGASTRODUODENOSCOPY TRANSORAL DIAGNOSTIC 02/02/2020 EGD LAPS SURG CHOLECYSTECTOMY W/CHOLANGIOGRAPHY 07/09/2020 OFFICE ENDOMETRIAL ABLATION 07/31/2010 PAST SURGICAL HISTORY OF 03/01/2000 LEFT HEEL SPUR AND LIGAMENT SURGERY PAST SURGICAL HISTORY OF benign tumor removal right side- breast FAMILY HISTORY Problem Relation Age of Onset Arthritis Mother Alzheimer's Disease Father Arthritis Maternal Grandmother Heart Maternal Grandmother CHF Cancer Maternal Grandfather Social History Tobacco Use Smoking status: Never Smokeless tobacco: Never Vaping Use Vaping status: Never Used Substance Use Topics Alcohol use: No Drug use: No Current Outpatient Medications Medication Sig meloxicam (MOBIC) 7.5 mg tablet Take 1-2 tablets by mouth once daily as needed (severe sciatica pain). famotidine (PEPCID) 20 mg tablet Take 1 tablet by mouth two times a day. calcium carbonate/vitamin D3 (CALCIUM 600 + D ORAL) Take 2 tablets by mouth once daily. ergocalciferol, vitamin D2, (VITAMIN D2 ORAL) Take 1,000 mg by mouth. nitroglycerin sublingual (NITROSTAT) 0.4 mg SL tablet Dissolve 1 tablet under the tongue every 5 minutes as needed. aspirin, enteric coated 81 mg EC tablet Take 1 tablet by mouth once daily. Ramsay-3 Fatty Acids (FISH OIL) 500 mg cap Take 1 capsule by mouth twice daily. (Patient taking differently: Take 1,000 mg by mouth two times a day.) metoprolol tartrate, short acting, 25 mg tablet Take 0.5 tablets by mouth twice daily. lisinopril 2.5 mg tablet Take 1 tablet by mouth once daily. atorvastatin (LIPITOR) 40 mg tablet Take 1 tablet by mouth daily at bedtime. For cholesterol. No current facility-administered medications for this visit. Allergies As of Date: 12/08/2024 Allergen Noted Reaction LEVAQUIN [LEVOFLOXACIN] 10/02/2019 Other: See Comments Fully Assessed 09/01/2024 REVIEW OF SYSTEMS Abdomen: No bloating, early satiety, indigestion, or increased flatulence. No abdominal pain, nausea, vomiting, diarrhea, or constipation. Bladder: No dysuria, gross hematuria, urinary frequency, urinary urgency, or incontinence. Breast: No breast lumps, nipple d/c, overlying skin changes, redness or skin retraction. Expanded ROS: N/A Allergies and current medication updated:Yes SENSITIVE EXAM: The sensitive examination was discussed with the Patient or Patient's Authorized Clinical Nurse. As applicable, any other physician, advance practice provider, medical student, or other health professional student that will be observing or involved in the sensitive examination for educational or training purposes was discussed with the Patient or Authorized Clinical Nurse. The Patient or Authorized Clinical Nurse has agreed to proceed with the sensitive examination. (Sensitive examination includes inspection and/or palpation of the breasts, pelvis, prostate and anorectal regions). EXAM: LMP 07/18/2010 GENERAL: pleasant, female in no apparent distress HEENT: Normocephalic, atraumatic, mucus membranes moist, and no lesions NECK: full range of motion DERMATOLOGY: Normal, without lesions, non-icteric, and non-hirsute BREAST: deferred CHEST: Normal inspiratory effort ABDOMEN: Deferred PELVIC: abnormal (more content not included)... [place] 12-08-2024 History of Present illness Narrative Patient declined bakery team leader. Evelio Michelle is a 64 year old female who presents for problem visit swelling vaginal, irritation area for 3 days.. HPI: Had Augmentin for 7 days for a tooth infection. Now swollen and sore in the vaginal area. Not seeing discharge or bleeding. OB History Gravida2 Para2 Term2 Preterm0 AB0 Living2 SAB0 IAB0 Ectopic0 Multiple0 Live Births0 Head Charger History LMP: 07/18/2010, Ablation Age at Menarche: Age at First : Age at Menopause: Head Charger History Comments: Sexual Activity: Yes; Male Contraception: Vasectomy PAST MEDICAL HISTORY Diagnosis Date Acute gastritis without mention of hemorrhage Acute SC (HCC) 04/21/2014 Nausea and then chest pressure; sent from ER to [facility]; stent placed, Cholelithiasis without cholecystitis Coronary artery disease Eczema 03/30/2011 Esophageal reflux Esophagitis, unspecified Excessive or frequent menstruation Heavy periods External hemorrhoids without mention of complication HYPERGLYCEMIA 03/15/2006 Internal hemorrhoids without mention of complication Intestinal or peritoneal adhesions with obstruction (postoperative) (postinfection) (HCC) Irritable bowel syndrome Low HDL (under 40) rest of lipids have been fine NOCTURNAL RESTLESS LEGS 04/19/2006 PAST SURGICAL HISTORY Procedure Laterality Date COLONOSCOPY FLX DX W/COLLJ SPEC WHEN PFRMD 03/06/1996 Colonoscopy COLONOSCOPY W/BIOPSY SINGLE/MULTIPLE 07/03/11 CORONARY STENT EA VESSEL 03/2014 right coronary artery EGD TRANSORAL BIOPSY SINGLE/MULTIPLE 07/03/11 ESOPHAGOGASTRODUODENOSCOPY TRANSORAL DIAGNOSTIC 02/02/2020 EGD LAPS SURG CHOLECYSTECTOMY W/CHOLANGIOGRAPHY 07/09/2020 OFFICE ENDOMETRIAL ABLATION 07/31/2010 PAST SURGICAL HISTORY OF 03/01/2000 LEFT HEEL SPUR AND LIGAMENT SURGERY PAST SURGICAL HISTORY OF benign tumor removal right side- breast FAMILY HISTORY Problem Relation Age of Onset Arthritis Mother Alzheimer's Disease Father Arthritis Maternal Grandmother Heart Maternal Grandmother CHF Cancer Maternal Grandfather Social History Tobacco Use Smoking status: Never Smokeless tobacco: Never Vaping Use Vaping status: Never Used Substance Use Topics Alcohol use: No Drug use: No Current Outpatient Medications Medication Sig meloxicam (MOBIC) 7.5 mg tablet Take 1-2 tablets by mouth once daily as needed (severe sciatica pain). famotidine (PEPCID) 20 mg tablet Take 1 tablet by mouth two times a day. calcium carbonate/vitamin D3 (CALCIUM 600 + D ORAL) Take 2 tablets by mouth once daily. ergocalciferol, vitamin D2, (VITAMIN D2 ORAL) Take 1,000 mg by mouth. nitroglycerin sublingual (NITROSTAT) 0.4 mg SL tablet Dissolve 1 tablet under the tongue every 5 minutes as needed. aspirin, enteric coated 81 mg EC tablet Take 1 tablet by mouth once daily. Ramsay-3 Fatty Acids (FISH OIL) 500 mg cap Take 1 capsule by mouth twice daily. (Patient taking differently: Take 1,000 mg by mouth two times a day.) metoprolol tartrate, short acting, 25 mg tablet Take 0.5 tablets by mouth twice daily. lisinopril 2.5 mg tablet Take 1 tablet by mouth once daily. atorvastatin (LIPITOR) 40 mg tablet Take 1 tablet by mouth daily at bedtime. For cholesterol. No current facility-administered medications for this visit. Allergies As of Date: 12/08/2024 Allergen Noted Reaction LEVAQUIN [LEVOFLOXACIN] 10/02/2019 Other: See Comments Fully Assessed 09/01/2024 REVIEW OF SYSTEMS Abdomen: No bloating, early satiety, indigestion, or increased flatulence. No abdominal pain, nausea, vomiting, diarrhea, or constipation. Bladder: No dysuria, gross hematuria, urinary frequency, urinary urgency, or incontinence. Breast: No breast lumps, nipple d/c, overlying skin changes, redness or skin retraction. Expanded ROS: N/A Allergies and current medication updated:Yes SENSITIVE EXAM: The sensitive examination was discussed with the Patient or Patient's Authorized Clinical Nurse. As applicable, any other physician, advance practice provider, medical student, or other health professional student that will be observing or involved in the sensitive examination for educational or training purposes was discussed with the Patient or Authorized Clinical Nurse. The Patient or Authorized Clinical Nurse has agreed to proceed with the sensitive examination. (Sensitive examination includes inspection and/or palpation of the breasts, pelvis, prostate and anorectal regions). EXAM: LMP 07/18/2010 GENERAL: pleasant, female in no apparent distress HEENT: Normocephalic, atraumatic, mucus membranes moist, and no lesions NECK: full range of motion DERMATOLOGY: Normal, without lesions, non-icteric, and non-hirsute BREAST: deferred CHEST: Normal inspiratory effort ABDOMEN: Deferred PELVIC: abnormal discharge thick white discharge caked to labia, swollen erythematous labia BIMANUAL: deferred NEURO: alert and oriented x3,exam grossly non-focal EXTREMITIES: normal ASSESSMENT AND PLAN: Assessment & Plan Vaginal irritation Orders: ANGIE/TRICHOMONAS NAAT BACTERIAL VAGINOSIS NAAT Yeast vaginitis Marianne Bolton MD documented in this encounter [facility] 09-06-2024 Telephone encounter Note Referral Faxed to [facility]. [facility] 09-06-2024 Miscellaneous Notes Referral Faxed to [facility] Please fax referral and notify patient Nathanael Cabral DO Spoke with pt gave information provided. She would like to try physical therapy. [facility]. Please inform patient that her XRAYS of her hips are normal without arthritis Her xrays of her lumbar spine/low back show a lot of degenerative disc changes and osteoarthritis as well as mild scoliosis changes as below UMBAR SPINE: The disc spaces appear well-preserved. Moderate degenerative changes in the posterior elements L3-S1. Mild anterior positioning of the L3 vertebral body on L4. Mild RIGHT convex rotoscoliosis No fractures or dislocations are seen. PELVIS AND Both hips : Pelvis: No fractures or dislocations are seen. Bone density appears well preserved. Hip joints appear well-preserved Right hip: No fractures or dislocations are seen. Left hip: No fractures or dislocations are seen. She can consider seeing PHYSICAL THERAPY or doing back stretches or chiropractic gentle adjustments and massage therapy. Also can consider seeing pain community education specialist for lumbar spine injections if pain worsens Nathanael Cabral DO documented in this encounter [facility] 09-06-2024 Telephone encounter Note Please fax referral and notify patient Nathanael Cabral DO [facility] 09-06-2024 Telephone encounter Note Spoke with pt gave information provided. She would like to try physical therapy. [facility] fax to [facility]. [facility] 09-06-2024 Telephone encounter Note Please inform patient that her XRAYS of her hips are normal without arthritis Her xrays of her lumbar spine/low back show a lot of degenerative disc changes and osteoarthritis as well as mild scoliosis changes as below UMBAR SPINE: The disc spaces appear well-preserved. Moderate degenerative changes in the posterior elements L3-S1. Mild anterior positioning of the L3 vertebral body on L4. Mild RIGHT convex rotoscoliosis No fractures or dislocations are seen. PELVIS AND Both hips : Pelvis: No fractures or dislocations are seen. Bone density appears well preserved. Hip joints appear well-preserved Right hip: No fractures or dislocations are seen. Left hip: No fractures or dislocations are seen. She can consider seeing PHYSICAL THERAPY or doing back stretches or chiropractic gentle adjustments and massage therapy. Also can consider seeing pain community education specialist for lumbar spine injections if pain worsens Nathanael Cabral DO [facility] 09-01-2024 History of Present illness Narrative Radiology Service Progress Note PATIENT NAME: Evelio Michelle DATE OF SERVICE: September 01, 2024 TIME: 12:04 PM PATIENT IDENTITY VERIFICATION COMPLETED USING TWO (2) IDENTIFIERS: Name and Date of confirmed by patient verbally. FALL SCREENING: Has the patient had 2 falls in the last year or 1 fall with injury or currently using an Ambulatory Assistive Device (Walker, Cane, Wheelchair, Crutches, etc.)? No PATIENT GENDER DATA: Female. status: : No status: NO. PATIENT RELEVANT IMPLANT DATA REVIEWED: Not Applicable PATIENT PRESENTS WITH AN IMPLANTABLE OR ATTACHED CHARGE AIDE: No RADIOLOGY DEPARTMENT: General X-ray: Exam(s) Completed: Spine X-Ray(s): Lumbar AP / LAT / L5-S1 Pelvis X-Ray: Pelvis with Hip Left PERIPHERAL IV DATA: Not applicable SIGNED BY: RT María(R) September 01, 2024 12:04 PM documented in this encounter [facility] 09-01-2024 Note HNO ID: [id number] Author: PAMELA PAYNE RT(Nyasia) Service: ? Author Type: Technologist Type: Progress Notes Filed: 09/01/2024 12:04 Note Text: Radiology Service Progress Note PATIENT NAME: Evelio Michelle DATE OF SERVICE: September 01, 2024 TIME: 12:04 PM PATIENT IDENTITY VERIFICATION COMPLETED USING TWO (2) IDENTIFIERS: Name and Date of confirmed by patient verbally. FALL SCREENING: Has the patient had 2 falls in the last year or 1 fall with injury or currently using an Ambulatory Assistive Device (Walker, Cane, Wheelchair, Crutches, etc.)? No PATIENT GENDER DATA: Female. status: : No status: NO. PATIENT RELEVANT IMPLANT DATA REVIEWED: Not Applicable PATIENT PRESENTS WITH AN IMPLANTABLE OR ATTACHED CHARGE AIDE: No RADIOLOGY DEPARTMENT: General X-ray: Exam(s) Completed: Spine X-Ray(s): Lumbar AP / LAT / L5-S1 Pelvis X-Ray: Pelvis with Hip Left PERIPHERAL IV DATA: Not applicable SIGNED BY: RT María(R) September 01, 2024 12:04 PM [place] 09-01-2024 Instructions Nathanael Cabral DO - 09/01/2024 9:56 AM EST Take the prednisone in the AM with food until this rx is completed After the prednisone is done, if still intermittently having any sciatica hip pain then take the Meloxicam 7.5-15 mg up to 3 days a week for pain documented in this encounter [facility] 09-01-2024 Note HNO ID: [id number] Author: NATHANAEL CABRAL DO Service: ? Author Type: Physician Type: Progress Notes Filed: 09/02/2024 08:11 Note Text: CC: Evelio Michelle is a 64 year old female who presents to the office for pain concerns. HPI: Patient states that she has had about 6-8 weeks of symptoms of Left lateral hip and buttock pain and left low back pain, radiates to the left groin and anterior thigh as a spasm sensation and aching pain and radiating down to the left knee/lower leg, no injuries that she is aware of. Doesn't do heavy lifting, only gentle exercise with stationary bike and treadmill during the winter. No falls. No bowel or bladder changes or abdominal pain or constipation. No rashes or blisters of skin. She has been using tylenol without a lot of relief and trying to do stretches at home. Has tried ice and heating pad as well without relief. PAST MEDICAL HISTORY Diagnosis Date Acute gastritis without mention of hemorrhage Acute SC (HCC) 04/21/2014 Nausea and then chest pressure; sent from ER to [facility]; stent placed, Cholelithiasis without cholecystitis Coronary artery disease Eczema 03/30/2011 Esophageal reflux Esophagitis, unspecified Excessive or frequent menstruation Heavy periods External hemorrhoids without mention of complication HYPERGLYCEMIA 03/15/2006 Internal hemorrhoids without mention of complication Intestinal or peritoneal adhesions with obstruction (postoperative) (postinfection) (HCC) Irritable bowel syndrome Low HDL (under 40) rest of lipids have been fine NOCTURNAL RESTLESS LEGS 04/19/2006 PAST SURGICAL HISTORY Procedure Laterality Date COLONOSCOPY FLX DX W/COLLJ SPEC WHEN PFRMD 03/06/1996 Colonoscopy COLONOSCOPY W/BIOPSY SINGLE/MULTIPLE 07/03/11 CORONARY STENT EA VESSEL 03/2014 right coronary artery EGD TRANSORAL BIOPSY SINGLE/MULTIPLE 07/03/11 ESOPHAGOGASTRODUODENOSCOPY TRANSORAL DIAGNOSTIC 02/02/2020 EGD LAPS SURG CHOLECYSTECTOMY W/CHOLANGIOGRAPHY 07/09/2020 OFFICE ENDOMETRIAL ABLATION 07/31/2010 PAST SURGICAL HISTORY OF 03/01/2000 LEFT HEEL SPUR AND LIGAMENT SURGERY PAST SURGICAL HISTORY OF benign tumor removal right side- breast Current Outpatient Medications Medication Sig predniSONE (DELTASONE) 10 mg tablet With food, take in the AM. Take 4 tabs daily for 3 days, then 2 tabs daily for 3 days, then 1 tab daily for 3 days with food. meloxicam (MOBIC) 7.5 mg tablet Take 1-2 tablets by mouth once daily as needed (severe sciatica pain). famotidine (PEPCID) 20 mg tablet Take 1 tablet by mouth two times a day. calcium carbonate/vitamin D3 (CALCIUM 600 + D ORAL) Take 2 tablets by mouth once daily. ergocalciferol, vitamin D2, (VITAMIN D2 ORAL) Take 1,000 mg by mouth. nitroglycerin sublingual (NITROSTAT) 0.4 mg SL tablet Dissolve 1 tablet under the tongue every 5 minutes as needed. aspirin, enteric coated 81 mg EC tablet Take 1 tablet by mouth once daily. Ramsay-3 Fatty Acids (FISH OIL) 500 mg cap Take 1 capsule by mouth twice daily. (Patient taking differently: Take 1,000 mg by mouth two times a day.) metoprolol tartrate, short acting, 25 mg tablet Take 0.5 tablets by mouth twice daily. lisinopril 2.5 mg tablet Take 1 tablet by mouth once daily. atorvastatin (LIPITOR) 40 mg tablet Take 1 tablet by mouth daily at bedtime. For cholesterol. No current facility-administered medications for this visit. ALLERGIES Allergen Reactions Levaquin [Levofloxa* Other: See Comments Arthralgias, headache .soc ROS: See HPI PE: BP 130/80 Pulse 64 Temp (Src) 96.5 (Left Tympanic) Resp 16 Ht 5' 6.142" (1.68m) Wt 202 lb (91.6kg) LMP 07/18/2010 BMI 32.46 kg/(m2). Gen: AANDOX3, NAD, non-toxic appearing HEENT: PERRLA, EOMs intact b/l, nares without drainage, pharynx without erythema, exudate, lesions, or drainage. Uvula midline. Neck: No LAD, no thyromegaly, no meningismus. CV: RRR, no murmur Lungs: CTA b/l, no wheezing Skin: No rashes, lesions, or wounds on exposed skin. Reduced ROM lumbar spine due to pain with pain with sitting and extension of her low back Weakness in her left leg/thigh No edema, normal pulses ASSESSMENT/PLAN: 1. Chronic left-sided low back pain with left-sided sciatica - ICD9: 724.2, 724.3, 338.29, ICD10: M54.42, G89.29 (primary diagnosis) Sciatica - Ice for localized tenderness - Warm moist heat for 20 min three times a day - Prednisone burst- see orders - NSAIDS- see orders- rare use due to CAD history recommended as d/w her today - Xrays- see orders - XR LUMBAR GENERAL 3V AP/LAT/L5-S1 - XR HIP GENERAL 3V PELV/AP/LAT LEFT - CONSULT TO PHYSICAL THERAPY - PREDNISONE 10 MG TABLET - MELOXICAM 7.5 MG TABLET 2. Left hip pain - ICD9: 719.45, ICD10: M25.552 See above - XR HIP GENERAL 3V PELV/AP/LAT LEFT - CONSULT TO PHYSICAL THERAPY - PREDNISONE 10 MG TABLET - MELOXICAM 7.5 MG TABLET 3. Dyslipidemia - ICD9: 272.4, ICD10: E78.5 - Control undet (more content not included)... [place] 09-01-2024 History of Present illness Narrative CC: Evelio Michelle is a 64 year old female who presents to the office for pain concerns. HPI: Patient states that she has had about 6-8 weeks of symptoms of Left lateral hip and buttock pain and left low back pain, radiates to the left groin and anterior thigh as a spasm sensation and aching pain and radiating down to the left knee/lower leg, no injuries that she is aware of. Doesn't do heavy lifting, only gentle exercise with stationary bike and treadmill during the winter. No falls. No bowel or bladder changes or abdominal pain or constipation. No rashes or blisters of skin. She has been using tylenol without a lot of relief and trying to do stretches at home. Has tried ice and heating pad as well without relief. PAST MEDICAL HISTORY Diagnosis Date Acute gastritis without mention of hemorrhage Acute SC (HCC) 04/21/2014 Nausea and then chest pressure; sent from ER to [facility]; stent placed, Cholelithiasis without cholecystitis Coronary artery disease Eczema 03/30/2011 Esophageal reflux Esophagitis, unspecified Excessive or frequent menstruation Heavy periods External hemorrhoids without mention of complication HYPERGLYCEMIA 03/15/2006 Internal hemorrhoids without mention of complication Intestinal or peritoneal adhesions with obstruction (postoperative) (postinfection) (HCC) Irritable bowel syndrome Low HDL (under 40) rest of lipids have been fine NOCTURNAL RESTLESS LEGS 04/19/2006 PAST SURGICAL HISTORY Procedure Laterality Date COLONOSCOPY FLX DX W/COLLJ SPEC WHEN PFRMD 03/06/1996 Colonoscopy COLONOSCOPY W/BIOPSY SINGLE/MULTIPLE 07/03/11 CORONARY STENT EA VESSEL 03/2014 right coronary artery EGD TRANSORAL BIOPSY SINGLE/MULTIPLE 07/03/11 ESOPHAGOGASTRODUODENOSCOPY TRANSORAL DIAGNOSTIC 02/02/2020 EGD LAPS SURG CHOLECYSTECTOMY W/CHOLANGIOGRAPHY 07/09/2020 OFFICE ENDOMETRIAL ABLATION 07/31/2010 PAST SURGICAL HISTORY OF 03/01/2000 LEFT HEEL SPUR AND LIGAMENT SURGERY PAST SURGICAL HISTORY OF benign tumor removal right side- breast Current Outpatient Medications Medication Sig predniSONE (DELTASONE) 10 mg tablet With food, take in the AM. Take 4 tabs daily for 3 days, then 2 tabs daily for 3 days, then 1 tab daily for 3 days with food. meloxicam (MOBIC) 7.5 mg tablet Take 1-2 tablets by mouth once daily as needed (severe sciatica pain). famotidine (PEPCID) 20 mg tablet Take 1 tablet by mouth two times a day. calcium carbonate/vitamin D3 (CALCIUM 600 + D ORAL) Take 2 tablets by mouth once daily. ergocalciferol, vitamin D2, (VITAMIN D2 ORAL) Take 1,000 mg by mouth. nitroglycerin sublingual (NITROSTAT) 0.4 mg SL tablet Dissolve 1 tablet under the tongue every 5 minutes as needed. aspirin, enteric coated 81 mg EC tablet Take 1 tablet by mouth once daily. Ramsay-3 Fatty Acids (FISH OIL) 500 mg cap Take 1 capsule by mouth twice daily. (Patient taking differently: Take 1,000 mg by mouth two times a day.) metoprolol tartrate, short acting, 25 mg tablet Take 0.5 tablets by mouth twice daily. lisinopril 2.5 mg tablet Take 1 tablet by mouth once daily. atorvastatin (LIPITOR) 40 mg tablet Take 1 tablet by mouth daily at bedtime. For cholesterol. No current facility-administered medications for this visit. ALLERGIES Allergen Reactions Levaquin [Levofloxa* Other: See Comments Arthralgias, headache .soc ROS: See HPI PE: BP 130/80 Pulse 64 Temp (Src) 96.5 (Left Tympanic) Resp 16 Ht 5' 6.142" (1.68m) Wt 202 lb (91.6kg) LMP 07/18/2010 BMI 32.46 kg/(m^2). Gen: A&OX3, NAD, non-toxic appearing HEENT: PERRLA, EOMs intact b/l, nares without drainage, pharynx without erythema, exudate, lesions, or drainage. Uvula midline. Neck: No LAD, no thyromegaly, no meningismus. CV: RRR, no murmur Lungs: CTA b/l, no wheezing Skin: No rashes, lesions, or wounds on exposed skin. Reduced ROM lumbar spine due to pain with pain with sitting and extension of her low back Weakness in her left leg/thigh No edema, normal pulses ASSESSMENT/PLAN: 1. Chronic left-sided low back pain with left-sided sciatica - ICD9: 724.2, 724.3, 338.29, ICD10: M54.42, G89.29 (primary diagnosis) Sciatica - Ice for localized tenderness - Warm moist heat for 20 min three times a day - Prednisone burst- see orders - NSAIDS- see orders- rare use due to CAD history recommended as d/w her today - Xrays- see orders - XR LUMBAR GENERAL 3V AP/LAT/L5-S1 - XR HIP GENERAL 3V PELV/AP/LAT LEFT - CONSULT TO PHYSICAL THERAPY - PREDNISONE 10 MG TABLET - MELOXICAM 7.5 MG TABLET 2. Left hip pain - ICD9: 719.45, ICD10: M25.552 See above - XR HIP GENERAL 3V PELV/AP/LAT LEFT - CONSULT TO PHYSICAL THERAPY - PREDNISONE 10 MG TABLET - MELOXICAM 7.5 MG TABLET 3. Dyslipidemia - ICD9: 272.4, ICD10: E78.5 - Control undetermined, due for labs - Continue current medications - Counseled on healthy diet and regular exercise - COMPREHENSIVE METABOLIC PANEL - COMPLETE BLOOD COUNT AND DIFFERENTIAL - LIPID PANEL BASIC 4. Multiple thyroid nodules - ICD9: 241.1, ICD10: E04.2 Labs as ordered. - COMPREHENSIVE METABOLIC PANEL - COMPLETE BLOOD COUNT AND DIFFERENTIAL - THYROID STIMULATING HORMONE - VITAMIN B12 5. Vitamin D deficiency - ICD9: 268.9, ICD10: E55.9 - VITAMIN D 25 HYDROXY 6. IFG (impaired fasting glucose) - ICD9: 790.21, ICD10: R73.01 - HEMOGLOBIN A1C - VITAMIN B12 Nathanael Cabral DO Return if no improvement. Follow up with Nathanael Cabral DO. To ER if develops chest pain, shortness of breath. Discussed risks, benefits, alternatives, and potential side effects of medications. Patient/Guardian expressed understanding and agreed with the plan. See patient instructions. Nathanael Cabral DO [id number] [place] [address] documented in this encounter [facility] 06-08-2024 History of Present illness Narrative Radiology Service Progress Note PATIENT NAME: Evelio Michelle DATE OF SERVICE: June 08, 2024 TIME: 1:34 PM PATIENT IDENTITY VERIFICATION COMPLETED USING TWO (2) IDENTIFIERS: Name and Date of confirmed by patient verbally. FALL SCREENING: Has the patient had 2 falls in the last year or 1 fall with injury or currently using an Ambulatory Assistive Device (Walker, Cane, Wheelchair, Crutches, etc.)? No PATIENT GENDER DATA: Female. status: : No status: NO. PATIENT RELEVANT IMPLANT DATA REVIEWED: Not Applicable PATIENT PRESENTS WITH AN IMPLANTABLE OR ATTACHED CHARGE AIDE: No RADIOLOGY DEPARTMENT: Mammography PERIPHERAL IV DATA: Not applicable SIGNED BY: RT Vanessa(Nyasia) June 08, 2024 1:34 PM documented in this encounter [facility] 05-29-2024 Telephone encounter Note The patient has been identified by name and date of : Yes Caregiver verified no other encounters exist for this prescription request: Yes Caregiver confirmed with patient/requestor that no other refills are due, in the near future, with this provider at this time: Yes The last office visit in the department: 12/03/2023 Does the patient have a future office visit with this provider/department: 06/02/2024 Requested Prescriptions Pending Prescriptions Disp Refills famotidine (PEPCID) 20 mg tablet 180 tablet 3 Sig: Take 1 tablet by mouth two times a day. Estrellita Hughes RN May 29, 2024 10:10 AM [facility] 05-29-2024 Miscellaneous Notes The patient has been identified by name and date of : Yes Caregiver verified no other encounters exist for this prescription request: Yes Caregiver confirmed with patient/requestor that no other refills are due, in the near future, with this provider at this time: Yes The last office visit in the department: 12/03/2023 Does the patient have a future office visit with this provider/department: 06/02/2024 Requested Prescriptions Pending Prescriptions Disp Refills famotidine (PEPCID) 20 mg tablet 180 tablet 3 Sig: Take 1 tablet by mouth two times a day. Estrellita Hughes RN May 29, 2024 10:10 AM documented in this encounter [facility] 12-03-2023 History of Present illness Narrative Chief Complaint Patient presents with: reoved a deer tick yesterday did have a round red marito arou HPI Evelio Michelle is a 63 year old female who presents here today for Above Complaints. Evelio is an established patient of Dr. Misha Do. She is a new patient to me today. Concerns today... Tick bite -- To abdomin. Likely got it on Wednesday or when she was in the yard picking up sticks. Noticed last night ( night) that it was a tick. Does report head imbedded once she noticed. Easily removed with tweezers. Pt reports redness around site since removal, redness has not improved or worsened since yesterday. Site of imbedded head is raised and swollen. Wondering if infected. No fever/chills. No other concerns or complaints. Past medical history, appointments, medications, allergies reviewed. Previous Medical History PAST MEDICAL HISTORY Diagnosis Date Acute gastritis without mention of hemorrhage Acute SC (HCC) 04/21/2014 Nausea and then chest pressure; sent from ER to [facility]; stent placed, Cholelithiasis without cholecystitis Coronary artery disease Eczema 03/30/2011 Esophageal reflux Esophagitis, unspecified Excessive or frequent menstruation Heavy periods External hemorrhoids without mention of complication HYPERGLYCEMIA 03/15/2006 Internal hemorrhoids without mention of complication Intestinal or peritoneal adhesions with obstruction (postoperative) (postinfection) (HCC) Irritable bowel syndrome Low HDL (under 40) rest of lipids have been fine NOCTURNAL RESTLESS LEGS 04/19/2006 Previous Surgical History PAST SURGICAL HISTORY Procedure Laterality Date COLONOSCOPY FLX DX W/COLLJ SPEC WHEN PFRMD 03/06/1996 Colonoscopy COLONOSCOPY W/BIOPSY SINGLE/MULTIPLE 07/03/11 CORONARY STENT EA VESSEL 03/2014 right coronary artery EGD TRANSORAL BIOPSY SINGLE/MULTIPLE 07/03/11 ESOPHAGOGASTRODUODENOSCOPY TRANSORAL DIAGNOSTIC 02/02/2020 EGD LAPS SURG CHOLECYSTECTOMY W/CHOLANGIOGRAPHY 07/09/2020 OFFICE ENDOMETRIAL ABLATION 07/31/2010 PAST SURGICAL HISTORY OF 03/01/2000 LEFT HEEL SPUR AND LIGAMENT SURGERY PAST SURGICAL HISTORY OF benign tumor removal right side- breast Family History FAMILY HISTORY Problem Relation Age of Onset Arthritis Mother Alzheimer's Disease Father Arthritis Maternal Grandmother Heart Maternal Grandmother CHF Cancer Maternal Grandfather Patient Allergies ALLERGIES Allergen Reactions Levaquin [Levofloxa* Other: See Comments Arthralgias, headache Current Medications Current Outpatient Medications on File Prior to Visit Medication Sig famotidine (PEPCID) 20 mg tablet Take 1 tablet by mouth two times a day. ergocalciferol, vitamin D2, (VITAMIN D2 ORAL) Take 1,000 mg by mouth. aspirin, enteric coated 81 mg EC tablet Take 1 tablet by mouth once daily. Ramsay-3 Fatty Acids (FISH OIL) 500 mg cap Take 1 capsule by mouth twice daily. (Patient taking differently: Take 1,000 mg by mouth two times a day.) metoprolol tartrate, short acting, 25 mg tablet Take 0.5 tablets by mouth twice daily. lisinopril 2.5 mg tablet Take 1 tablet by mouth once daily. atorvastatin (LIPITOR) 40 mg tablet Take 1 tablet by mouth daily at bedtime. For cholesterol. calcium carbonate/vitamin D3 (CALCIUM 600 + D ORAL) Take 2 tablets by mouth once daily. nitroglycerin sublingual (NITROSTAT) 0.4 mg SL tablet Dissolve 1 tablet under the tongue every 5 minutes as needed. No current facility-administered medications on file prior to visit. Social History Social History Tobacco Use Smoking status: Never Smokeless tobacco: Never Vaping Use Vaping Use: Never used Substance Use Topics Alcohol use: No Drug use: No REVIEW OF SYSTEMS: as above Reviewed relevant PMHx, PSHx, Social Hx, current medications and allergies. Review of Symptoms REVIEW OF SYSTEMS See HPI. EXAM: BP 136/64 (BP Site: Left Arm, BP Position: Sitting, BP Cuff Size: Regular Adult) Pulse 68 Resp 14 Wt 93.4 kg (205 lb 12.8 oz) LMP 07/18/2010 BMI 33.47 kg/m General Appearance: Well appearing, alert, in no acute distress, well-hydrated, well nourished. . Skin: Skin color, texture, turgor normal, no suspicious rashes or lesions, Positives: Tick bite to RUQ abd. Surrounding redness and swelling. No drainage or warmth. Health Maintenance List Hepatitis C Screening Never done HIV Screening Never done Advance Directive Discussion Never done Behavioral Health Screening Never done Mammogram Screening due on 09/11/2023 RSV Vaccine(1 - 1-dose 60+ series) due on 12/02/2024 Covid-19 Vaccine( season) due on 12/02/2024 Pneumococcal Vaccine: 65+(1 of 1 - PCV) due on 12/02/2024 Annual PCP Team Chronic Disease Visit due on 01/05/2024 LDL Cholesterol due on 01/22/2024 Diabetes Screening due on 01/21/2026 DTaP,Tdap,Td Vaccine(2 - Td or Tdap) due on 12/18/2026 Lipid Screening due on 01/22/2028 Colorectal Cancer Screening due on 11/01/2030 Bone Density Screening Completed Influenza Vaccine Completed Shingrix Vaccine Completed Pap Testing Discontinued ASSESSMENT/PLAN: 1. Tick bite of abdominal wall, initial encounter - ICD9: 911.4, E906.4, ICD10: S30.861A, W57.XXXA One time dose of doxycycline to help prevent lyme disease. Monitor for s/s of bulls eye rash or flu-like symptoms in the next 3-14 days. Continue to monitor surrounding redness. If redness worsens or s/s of purulent drainage or warmth occur by Wednesday, let me know. May send bactrim antibiotic x 7-10 days if needed. - DOXYCYCLINE HYCLATE 100 MG TABLET RTO as needed. Prescription instructions reviewed with patient as applicable. Potential red flag symptoms discussed with the patient. Reviewed appropriate action plan to take if red flag symptoms occur. Patient agreeable to treatment plan. Preeti Tejada APRN.SUPERVISOR RESIDENTIAL [address] [place] [address] documented in this encounter [facility] 05-31-2023 Miscellaneous Notes Patient has been identified by name and date of : Yes Patient phones for refill(s): Requested Prescriptions Pending Prescriptions Disp Refills famotidine (PEPCID) 20 mg tablet 180 tablet 3 Sig: Take 1 tablet by mouth two times a day. Date of last office visit in primary care: STEPHANIE 01/04/23 NOV not scheduled Last 2 Encounter Wt Readings: Date: Wt: 04/30/2023 92.5 kg (204 lb) 01/04/2023 93.9 kg (207 lb) Please advise. Thank you. HAKAN Alexander documented in this encounter [facility] 05-10-2023 History of Present illness Narrative Radiology Service Progress Note PATIENT NAME: Evelio Michelle DATE OF SERVICE: May 10, 2023 TIME: 8:28 AM PATIENT IDENTITY VERIFICATION COMPLETED USING TWO (2) IDENTIFIERS: Name and Date of confirmed by patient verbally. FALL SCREENING: Has the patient had 2 falls in the last year or 1 fall with injury or currently using an Ambulatory Assistive Device (Walker, Cane, Wheelchair, Crutches, etc.)? Yes, Patient High Risk for Falls What interventions were put in place to prevent falls during this visit? Increased Observations by Caregivers PATIENT GENDER DATA: Female. status: : No status: NO. PATIENT RELEVANT IMPLANT DATA REVIEWED: Not Applicable RADIOLOGY DEPARTMENT: Bone Density PERIPHERAL IV DATA: Not applicable SIGNED BY: RT Luis Felipe(R) May 10, 2023 8:28 AM documented in this encounter [facility] 04-30-2023 Instructions Vick Pretty APRN.CNP - 04/30/2023 9:40 AM EDT How to Manage Common Symptoms Associated with COVID for Adults Fever- Fever is a temperature over 100.4 F and can occur when the body is fighting an infection. To help treat a fever: Drink plenty of fluids and stay well hydrated. Eat small amounts of easy to digest food. Rest. Your body needs rest to recover, but getting up and moving around the house frequently is a good idea. You should try to continue doing your normal daily activities (bathing, toileting, grooming, cooking), though you will probably feel tired, and need to rest often. Avoid any heavy activity or exercise, as this will increase your body temperature. Dress in light clothing and stay covered in a light sheet. Keep the room temperature cool. Take a slightly warm (not cold or cool) bath, or apply damp washcloths to the forehead and wrists. Cough- Cough is a common symptom associated with COVID and can be bothersome. To help treat a cough: Stay well hydrated. Try warm water or tea with lemon and/or honey to help soothe the cough. Use a humidifier to add moisture to the air. Try a product with menthol, like a cough drop or a rub for your chest such as Vicks, which can help reduce cough. Try cough drops. Avoid smoking and other strong odors or perfumes. Try breathing exercises to keep your lungs open and clear. Take a big deep breath through your nose and hold for 5 seconds before slowly releasing. Repeat frequently, while you are awake. Congestion- Runny nose or nasal congestion can occur with COVID. Treatment can help relieve symptoms: Try OTC nasal saline spray, or nasal saline rinse to relieve mucus congestion. Nasal strips can help keep nasal passages open, to increase airflow. Elevating your head with an extra pillow in bed can help reduce congestion. Using a humidifier can increase moisture in the air, and make breathing easier. Sore Throat- Another common symptom with COVID, can be managed at home by: Stay well hydrated. Gargle with salt water - mix teaspoon salt with 1 cup of warm water and gargle. This helps to loosen mucus in the back of the throat and may reduce discomfort. Try ice chips, popsicles or lozenges to soothe the throat. Nausea/Vomiting/Diarrhea- These are common symptoms, and staying hydrated is most important. If you are nauseous or vomiting, start with small sips of water every 10-15 minutes and increase as tolerated. You can try sucking an ice cube too. If tolerating, you can try pedialyte or Gatorade, or flat sprite or kasie-carlos. Start slowly and increase as you are able to. Instead of meals, try smaller, more frequent snacks. Try eating bland foods like crackers, toast, rice, and applesauce. Avoid spicy, greasy or fried foods and dairy containing foods. Even if you aren't feeling hungry due to lack of smell or taste, it is important to try to take in some food when you are able. After drinking and eating, rest in an upright position for up to two hours as needed to help decrease nauseous feelings. Try closing your eyes, avoid moving and watching TV. Avoid strong odors that can make you feel more nauseated. When to seek emergency medical attention Look for emergency warning signs for COVID-19. If having any of these symptoms, seek emergency medical care immediately: Trouble breathing Persistent pain or pressure in the chest New confusion Inability to wake or stay awake Bluish lips or face *This list is not all possible symptoms. Please call your medical provider for any other symptoms that are severe or concerning to you. documented in this encounter [facility] 04-30-2023 History of Present illness Narrative Subjective HPI Nontoxic-appearing female presents urgent care chief complaint flulike symptoms. Duration of symptoms 2 days. Associated symptoms body aches chills fever sinus pressure sore throat cough chest congestion. With bothersome symptom today is sinus pressure and sore throat. No known sick contacts. No OTC medication use. Denies any significant pain at rest increased pain or swelling. Denies any fever body aches chills productive cough chest pain shortness of breath pleuritic pain hemoptysis nausea vomiting abdominal pain change in bowel or bladder habits. Past medical history prescription medication use and allergies reviewed. .Patient presents with: Sinus Problem: sinus pressure, drainage, cough and sore throat x 2 days PAST MEDICAL HISTORY Diagnosis Date Acute gastritis without mention of hemorrhage Acute SC (HCC) 04/21/2014 Nausea and then chest pressure; sent from ER to [facility]; stent placed, Cholelithiasis without cholecystitis Coronary artery disease Eczema 03/30/2011 Esophageal reflux Esophagitis, unspecified Excessive or frequent menstruation Heavy periods External hemorrhoids without mention of complication HYPERGLYCEMIA 03/15/2006 Internal hemorrhoids without mention of complication Intestinal or peritoneal adhesions with obstruction (postoperative) (postinfection) (HCC) Irritable bowel syndrome Low HDL (under 40) rest of lipids have been fine NOCTURNAL RESTLESS LEGS 04/19/2006 PAST SURGICAL HISTORY Procedure Laterality Date COLONOSCOPY FLX DX W/COLLJ SPEC WHEN PFRMD 03/06/1996 Colonoscopy COLONOSCOPY W/BIOPSY SINGLE/MULTIPLE 07/03/11 CORONARY STENT EA VESSEL 03/2014 right coronary artery EGD TRANSORAL BIOPSY SINGLE/MULTIPLE 07/03/11 ESOPHAGOGASTRODUODENOSCOPY TRANSORAL DIAGNOSTIC 02/02/2020 EGD LAPS SURG CHOLECYSTECTOMY W/CHOLANGIOGRAPHY 07/09/2020 OFFICE ENDOMETRIAL ABLATION 07/31/2010 PAST SURGICAL HISTORY OF 03/01/2000 LEFT HEEL SPUR AND LIGAMENT SURGERY PAST SURGICAL HISTORY OF benign tumor removal right side- breast ALLERGIES Levaquin [Levofloxacin] MEDICATIONS famotidine (PEPCID) 20 mg tablet Take 1 tablet by mouth twice daily. ergocalciferol, vitamin D2, (VITAMIN D2 ORAL) Take 1,000 mg by mouth. nitroglycerin sublingual (NITROSTAT) 0.4 mg SL tablet Dissolve 1 tablet under the tongue every 5 minutes as needed. aspirin, enteric coated 81 mg EC tablet Take 1 tablet by mouth once daily. Ramsay-3 Fatty Acids (FISH OIL) 500 mg cap Take 1 capsule by mouth twice daily. (Patient taking differently: Take 1,000 mg by mouth twice daily.) metoprolol tartrate, short acting, 25 mg tablet Take 0.5 tablets by mouth twice daily. lisinopril 2.5 mg tablet Take 1 tablet by mouth once daily. atorvastatin (LIPITOR) 40 mg tablet Take 1 tablet by mouth daily at bedtime. For cholesterol. FAMILY HISTORY Problem Relation Age of Onset Arthritis Mother Alzheimer's Disease Father Arthritis Maternal Grandmother Heart Maternal Grandmother CHF Cancer Maternal Grandfather Social History Tobacco Use Smoking status: Never Smokeless tobacco: Never Vaping Use Vaping Use: Never used Substance Use Topics Alcohol use: No Drug use: No BP 122/80 Pulse 102 Temp 37.9 C (100.3 F) Resp 18 Wt 92.5 kg (204 lb) LMP 07/18/2010 SpO2 94% BMI 33.18 kg/m Spo2 94-95 Hr 89 Review of Systems Constitutional: Positive for chills, fever and malaise/fatigue. HENT: Positive for congestion, sinus pain and sore throat. Negative for ear discharge and ear pain. Eyes: Negative for blurred vision, pain, discharge and redness. Respiratory: Positive for cough. Negative for hemoptysis, sputum production, shortness of breath, wheezing and stridor. Cardiovascular: Negative for chest pain. Gastrointestinal: Negative for abdominal pain, diarrhea, nausea and vomiting. Musculoskeletal: Positive for myalgias. Skin: Negative for itching and rash. Neurological: Positive for headaches. Negative for dizziness. Objective Physical Exam Constitutional: General: She is not in acute distress. Appearance: She is not diaphoretic. HENT: Head: Normocephalic. Jaw: No trismus, tenderness, swelling or pain on movement. Right Ear: Tympanic membrane, ear canal and external ear normal. Left Ear: Tympanic membrane, ear canal and external ear normal. Nose: Congestion present. Mouth/Throat: Mouth: Mucous membranes are moist. Pharynx: Oropharynx is clear. Uvula midline. No pharyngeal swelling, oropharyngeal exudate, posterior oropharyngeal erythema or uvula swelling. Eyes: Conjunctiva/sclera: Conjunctivae normal. Pupils: Pupils are equal, round, and reactive to light. Cardiovascular: Rate and Rhythm: Normal rate and regular rhythm. Heart sounds: Normal heart sounds. Pulmonary: Effort: Pulmonary effort is normal. No tachypnea, accessory muscle usage or respiratory distress. Breath sounds: Normal breath sounds. No stridor. No wheezing, rhonchi or rales. Abdominal: General: There is no distension. Palpations: Abdomen is soft. Tenderness: There is no abdominal tenderness. There is no guarding or rebound. Musculoskeletal: Cervical back: Normal range of motion and neck supple. No edema, erythema, rigidity or tenderness. No pain with movement. Normal range of motion. Lymphadenopathy: Cervical: No cervical adenopathy. Skin: General: Skin is warm and dry. Neurological: Mental Status: She is alert and oriented to person, place, and time. ASSESSMENT/PLAN: 1. Sore throat - ICD9: 462, ICD10: J02.9 (primary diagnosis) - STREP A MOLECULAR (POC) - COVID & INFLUENZA A/B NAAT, ROUTINE 2. Viral illness - ICD9: 079.99, ICD10: B34.9 - Discussed viral etiology and rationale for treatment. - Symptomatic treatment with prn analgesia - Supportive care with fluids and rest - COVID & INFLUENZA A/B NAAT, ROUTINE Patient nontoxic-appearing. High suspicion for COVID-19 currently. Red flags for prompt reevaluation discussed. Patient was educated on supportive therapies. Patient will follow up with primary care provider as needed. Patient was instructed to immediately proceed to emergency room for any new, worsening, or symptoms lasting longer than anticipated. The patient's clinical presentation is otherwise unremarkable at this time. Based on exam and clinical finding, the patient is stable for discharge. Plan of care was discussed with patient. Patient verbalizes understanding and agrees to plan of care. This note was generated using Meldium software. It may contain errors in wording, punctuation, or spelling. Vick Pretty APRN.SUPERVISOR RESIDENTIAL documented in this encounter [facility] 12-24-2022 Instructions Sofiya Dasilva MD - 12/24/2022 11:37 AM EDT BONE MINERAL DENSITY PATIENT INSTRUCTIONS === Bone mineral density testing measures the amount of calcium in certain parts of your bones. This information determines how strong your bones are. The test is used to detect osteoporosis, a disease in which the bone's mineral content and density are low, increasing a person's risk of fractures. The lumbar spine (lower back) and the hip are the skeletal sites usually examined. For the test, remember that: 1. You cannot take this test if you are . 2. Eat a normal diet on the day of the test. 3. Take your medications as you normally would. 4. DO NOT take calcium supplements (such as Tums) for 24 hours before the test. 5. On the day of the test, leave valuables (jewelry or credit cards) at home. 6. The test should be performed prior to oral, rectal or IV contrast studies, or at least 7 days after any of these studies. For the test, you may be asked to wear a hospital gown. You will lie on your back, on a padded table, in a comfortable position. Generally, you can resume your usual activities immediately. documented in this encounter [facility] 12-24-2022 History of Present illness Narrative Adult Caregiver offered: Patient declines. Evelio is a 62 year old who presents for an annual gynecologic exam without complaints. Works for [employer], thinking about residential soon. Postmenopausal: Yes, not sure when since ablation was performed 20 years ago HRT use: No. Last Pap: 08/11/2018 normal HPV: 08/08/2018 negative History of abnormal pap: No Last mammogram: 08/2022 normal History of abnormal mammogram: No Hot flashes: Yes Night sweats: Yes Vaginal dryness: No Mood swings: No Insomnia: No Exercise: 5 times a week for 35-40 minutes. Type: walking Diet: Attempts to eat gluten, fairly healthy OB History T2 L2 SAB0 IAB0 Ectopic0 Multiple0 Live Births0 Head Charger History LMP: 07/18/2010, Ablation Age at Menarche: Age at First : Age at Menopause: Head Charger History Comments: Sexual Activity: Yes; Male Contraception: Vasectomy PAST MEDICAL HISTORY Diagnosis Date Acute gastritis without mention of hemorrhage Acute SC (HCC) 04/21/2014 Nausea and then chest pressure; sent from ER to [facility]; stent placed, Cholelithiasis without cholecystitis Coronary artery disease Eczema 03/30/2011 Esophageal reflux Esophagitis, unspecified Excessive or frequent menstruation Heavy periods External hemorrhoids without mention of complication HYPERGLYCEMIA 03/15/2006 Internal hemorrhoids without mention of complication Intestinal or peritoneal adhesions with obstruction (postoperative) (postinfection) (HCC) Irritable bowel syndrome Low HDL (under 40) rest of lipids have been fine NOCTURNAL RESTLESS LEGS 04/19/2006 PAST SURGICAL HISTORY Procedure Laterality Date COLONOSCOPY FLX DX W/COLLJ SPEC WHEN PFRMD 03/06/1996 Colonoscopy COLONOSCOPY W/BIOPSY SINGLE/MULTIPLE 07/03/11 CORONARY STENT EA VESSEL 03/2014 right coronary artery EGD TRANSORAL BIOPSY SINGLE/MULTIPLE 07/03/11 ESOPHAGOGASTRODUODENOSCOPY TRANSORAL DIAGNOSTIC 02/02/2020 EGD LAPS SURG CHOLECYSTECTOMY W/CHOLANGIOGRAPHY 07/09/2020 OFFICE ENDOMETRIAL ABLATION 07/31/2010 PAST SURGICAL HISTORY OF 03/01/2000 LEFT HEEL SPUR AND LIGAMENT SURGERY PAST SURGICAL HISTORY OF benign tumor removal right side- breast FAMILY HISTORY Problem Relation Age of Onset Arthritis Mother Alzheimer's Disease Father Arthritis Maternal Grandmother Heart Maternal Grandmother CHF Cancer Maternal Grandfather SOCIAL HISTORY Social History Tobacco Use Smoking status: Never Smokeless tobacco: Never Vaping Use Vaping Use: Never used Substance Use Topics Alcohol use: No Drug use: No REVIEW OF SYSTEMS Abdomen: No abdominal pain, nausea, vomiting, diarrhea, or constipation. No bloating, early satiety, indigestion, or increased flatulence. Bladder: No dysuria, gross hematuria, urinary frequency, urinary urgency, or incontinence Breast: No breast lumps, nipple d/c, overlying skin changes, redness or skin retraction Allergies and current medication updated:Yes EXAM: Ht 5' 6.5" (1.69m) Wt 210 lb (95.3kg) LMP 07/18/2010 BMI 33.39 kg/(m^2). GENERAL: pleasant, female in no apparent distress HEENT: Normocephalic, atraumatic, mucus membranes moist, and no lesions NECK: Supple, full range of motion, no adenopathy, and thyroid normal DERMATOLOGY: Normal, without lesions, non-icteric, and non-hirsute BREAST: soft, non-tender, symmetric, no dominant mass, normal nipple-areolar complex, no lymphadenopathy, and no nipple discharge ABDOMEN: soft, non-tender, and no masses PELVIC: external genitalia normal, normal Bartholin's glands, urethra, Hustisford's glands, no vulvar lesions, no cervical lesions, good vaginal support, physiologic discharge present, normal appearing perineal body and perianal region BIMANUAL: uterus normal size, shape and consistency, no adnexal masses, and non-tender RECTOVAGINAL: deferred. NEURO: alert and oriented x3,exam grossly non-focal EXTREMITIES: normal ASSESSMENT/PLAN: 1) Health maintenance: Pap done with HPV. Mammogram ordered Mammogram up to date Nutrition, exercise and routine health maintenance exams reviewed. Calcium/Vitamin D supplementation information provided. Colon cancer screening: up to date with screening BMD: ordered 2) Follow up one year or sooner as needed Sofiya Fuller MD documented in this encounter [facility] 10-30-2022 Miscellaneous Notes Orders signed. Lorna Zavala APRN.SUPERVISOR RESIDENTIAL Patient scheduled for nurse visit 10/30/22 to receive Shingrix vaccine. Please place order at this time. Brittanie Chua LPN documented in this encounter [facility] 09-12-2022 Miscellaneous Notes September 14, 2022 PID: [id number] Evelio Michelle [address] [place] [address] Dear Ms. Michelle, We are pleased to inform you that the results of your recent breast imaging exam on 09/11/2022 are normal. Early detection of cancer is very important. We also understand recommendations regarding breast cancer screening are controversial. Please discuss with your primary care provider which strategy is best for you and whether a mammogram is right for you. Your imaging studies and report will be kept on file at [facility] as part of your permanent medical record and are available for your continuing care. Thank you for allowing us to help in meeting your health care needs. Sincerely, Dr. Archer Interpreting Radiologist [facility] (Normal over 40) documented in this encounter [facility] 09-11-2022 History of Present illness Narrative Radiology Service Progress Note PATIENT NAME: Evelio Michelle DATE OF SERVICE: September 11, 2022 TIME: 9:08 AM PATIENT IDENTITY VERIFICATION COMPLETED USING TWO (2) IDENTIFIERS: Name and Date of confirmed by patient verbally. FALL SCREENING: Has the patient had 2 falls in the last year or 1 fall with injury or currently using an Ambulatory Assistive Device (Walker, Cane, Wheelchair, Crutches, etc.)? No PATIENT GENDER DATA: Female. status: : No status: NO. PATIENT RELEVANT IMPLANT DATA REVIEWED: Not Applicable RADIOLOGY DEPARTMENT: Mammography PERIPHERAL IV DATA: Not applicable SIGNED BY: RT Vanessa(R) September 11, 2022 9:08 AM documented in this encounter [facility] 06-22-2022 History of Present illness Narrative Thiago Gomez MD Department of Orthopaedics Orthopaedics [address] [facility] [address] Dept: [phone] Dept June 22, 2022 CHIEF COMPLAINT: Established Patient, Follow Up, and Fracture of the Right Knee (Xray 06/19/22) HPI Patient is here today for 7 week 4 day follow up post right patella fracture. Patient states things have been going well; she is able to get up and move around freely. Patient states she has been wearing a brace up until last week; she states her knee feels ok since she stopped wearing the brace. Patient c/o aching by the end of day in which she takes tylenol for relief. ASSESSMENT: S82.044D Closed nondisplaced comminuted fracture of right patella with routine healing, subsequent encounter (primary encounter diagnosis) PLAN: She is about 7-1/2 weeks and from her patella fracture. She is doing quite well. She has been getting around this week without a brace and taking it easy. She does get a bit achy but has been doing some light strengthening exercises. She can continue as she is been going. I still would like her to be a bit careful for the next month or so. She can follow-up on an as-needed basis. Ms. Evelio Michelle was advised as to contrast therapies and/or to take analgesics/anti-inflammatories as needed and all contraindications were reviewed. OBJECTIVE: Ms. Evelio Michelle is a pleasant 62 year old in no apparent distress. Gen:LMP 07/18/2010 nl development, non obese, no deformities ENT: Normocephalic, normal hearing, moist mucosa CV: Pulses:DP/PT= 2+ and symmetric, capillary refill < 2 secs, no peripheral edema/varicosities Skin: no rash, bruising or lesions. Good turgor. Psych: cooperative and appropriate, alert and oriented x 3, good mood and affect. Musculoskeletal: Good range of motion from 0 to 125 degrees. Very mild if any tenderness over the patella. Imaging: IMPRESSION: Healing comminuted right patellar fracture without interval complication. Detective Precinct: [facility] Transcribe Date/Time: 2022 2:02P Dictated by : GABRIELA DUMONT MD This examination was interpreted and the report reviewed and electronically signed by: GABRIELA DUMONT MD on 2022 2:05PM EST Results-Findings * * *Final Report* * * DATE OF EXAM: 2022 9:35AM WOX 5209 - XR KNEE 3V AP/LAT/MERCHANT RT / PROCEDURE REASON: Closed nondisplaced comminuted fracture of right patella, initial encounter * * * * Physician Interpretation * * * * EXAMINATION: XR KNEE 3V AP/LAT/MERCHANT RT HISTORY: Closed nondisplaced comminuted fracture of right patella, subsequent encounter. TECHNIQUE: XR KNEE 3V AP/LAT/MERCHANT RT Laterality: RIGHT Number of different views (projections): 3 M: XB_1 COMPARISON: Comparison is made to prior study dated 14 May 2022 and 30 April 2022. RESULT: Standing frontal radiographs of the bilateral knees with, sunrise views and a lateral view of the right knee demonstrate healing comminuted intra-articular fracture of the right patella. Fracture lines are less apparent and remain anatomic in alignment. No interval complication. [id number] amount of residual right suprapatellar joint fluid noted. Mild narrowing of the medial tibiofemoral joint compartments is stable consistent with degenerative change. Supporting Subjective Information Below: Past Surgical History: PAST SURGICAL HISTORY Procedure Laterality Date COLONOSCOPY FLX DX W/COLLJ SPEC WHEN PFRMD 03/06/1996 Colonoscopy COLONOSCOPY W/BIOPSY SINGLE/MULTIPLE 07/03/11 CORONARY STENT EA VESSEL 03/2014 right coronary artery EGD TRANSORAL BIOPSY SINGLE/MULTIPLE 07/03/11 ESOPHAGOGASTRODUODENOSCOPY TRANSORAL DIAGNOSTIC 02/02/2020 EGD LAPS SURG CHOLECYSTECTOMY W/CHOLANGIOGRAPHY 07/09/2020 OFFICE ENDOMETRIAL ABLATION 07/31/2010 PAST SURGICAL HISTORY OF 03/01/2000 LEFT HEEL SPUR AND LIGAMENT SURGERY PAST SURGICAL HISTORY OF benign tumor removal right side- breast Medications: Current Outpatient Medications Medication Sig famotidine (PEPCID) 20 mg tablet Take 1 tablet by mouth twice daily. ergocalciferol, vitamin D2, (VITAMIN D2 ORAL) Take 1,000 mg by mouth. nitroglycerin sublingual (NITROSTAT) 0.4 mg SL tablet Dissolve 1 tablet under the tongue every 5 minutes as needed. aspirin, enteric coated 81 mg EC tablet Take 1 tablet by mouth once daily. Ramsay-3 Fatty Acids (FISH OIL) 500 mg cap Take 1 capsule by mouth twice daily. (Patient taking differently: Take 1,000 mg by mouth twice daily.) metoprolol tartrate, short acting, 25 mg tablet Take 0.5 tablets by mouth twice daily. lisinopril 2.5 mg tablet Take 1 tablet by mouth once daily. atorvastatin (LIPITOR) 40 mg tablet Take 1 tablet by mouth daily at bedtime. For cholesterol. cyclobenzaprine (FLEXERIL) 10 mg tablet Take 1 tablet by mouth three times daily as needed for muscle spasm. dicyclomine (BENTYL) 10 mg capsule (Patient not taking: Reported on 12/11/2021 ) cyclobenzaprine (FLEXERIL) 10 mg tablet Take 1 tablet by mouth three times daily as needed for Muscle Spasm. (Patient not taking: Reported on 03/01/2021 ) sucralfate (CARAFATE) 1 gram tablet Take 1 tablet by mouth three times daily. (Patient not taking: Reported on 12/09/2020 ) prasugrel (EFFIENT) 10 mg tab Take 1 tablet by mouth once daily. (Patient not taking: Reported on 12/09/2020 ) No current facility-administered medications for this visit. Allergies: Levaquin [Levofloxacin] ROS: General (negative for fatigue, malaise, weight loss/gain) HEENT (negative for headache, earache, recent vision changes, sinus pain, sore throat) Respiratory (no recent shortness of breath, hemoptysis) CV (negative for chest tightness, palpitations) Musculoskeletal (see HPI) Psych (no depression, anxiety) Thiago Gomez MD documented in this encounter [facility] 2022 History of Present illness Narrative Radiology Service Progress Note PATIENT NAME: Evelio Michelle DATE OF SERVICE: 2022 TIME: 9:32 AM PATIENT IDENTITY VERIFICATION COMPLETED USING TWO (2) IDENTIFIERS: Name and Date of confirmed by patient verbally. FALL SCREENING: Has the patient had 2 falls in the last year or 1 fall with injury or currently using an Ambulatory Assistive Device (Walker, Cane, Wheelchair, Crutches, etc.)? No PATIENT GENDER DATA: Female. status: : No status: NO. PATIENT RELEVANT IMPLANT DATA REVIEWED: Not Applicable RADIOLOGY DEPARTMENT: General X-ray: Exam(s) Completed: Lower Extremity X-Ray(s): Knee, AP / Lat / Merchant Right and Wt. Bearing PERIPHERAL IV DATA: Not applicable SIGNED BY: RT Lissa(R) 2022 9:32 AM documented in this encounter [facility] 05-15-2022 Miscellaneous Notes Last Office Visit: 12/11/2021 Future Office Visit: None Date of Last Labs: 07/02/2021 documented in this encounter [facility] 05-14-2022 Miscellaneous Notes Addended by: FREYA ERICKSON MA on: 05/14/2022 09:11 AM Modules accepted: Orders documented in this encounter [facility] 05-14-2022 History of Present illness Narrative Xr knee documented in this encounter [facility] 05-14-2022 History of Present illness Narrative Radiology Service Progress Note PATIENT NAME: Evelio Michelle DATE OF SERVICE: May 14, 2022 TIME: 9:15 AM PATIENT IDENTITY VERIFICATION COMPLETED USING TWO (2) IDENTIFIERS: Name and Date of confirmed by patient verbally. FALL SCREENING: Has the patient had 2 falls in the last year or 1 fall with injury or currently using an Ambulatory Assistive Device (Walker, Cane, Wheelchair, Crutches, etc.)? No PATIENT GENDER DATA: Female. status: : No status: NO. PATIENT RELEVANT IMPLANT DATA REVIEWED: Not Applicable RADIOLOGY DEPARTMENT: General X-ray: Exam(s) Completed: Lower Extremity X-Ray(s): Knee, AP / Lat / Merchant Right and Wt. Bearing PERIPHERAL IV DATA: Not applicable SIGNED BY: RT Lissa(R) May 14, 2022 9:15 AM documented in this encounter [facility] 05-07-2022 History of Present illness Narrative Thiago Gomez MD Department of Orthopaedics Orthopaedics [address] [place] [id number] Dept: [phone] Dept May 07, 2022 CHIEF COMPLAINT: New and Fracture of the Right Knee HPI Patient here today for right patella fracture. States she walked to [facility] on her lunch break and tripped and fell on the sidewalk. 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 Most of her pain is in the posterior knee. She arrives wearing an angelique wrap and a knee brace. ASSESSMENT: M79.89 Right leg swelling (primary encounter diagnosis) W19.XXXA Fall, initial encounter S82.044A Closed nondisplaced comminuted fracture of right patella, initial encounter PLAN: She has an intact extensor mechanism. Articular pieces appear to be pretty well aligned up. She certainly does have quite a bit diffuse edema in the lower leg and tenderness through the calf. We will get an ultrasound to be sure she is not with a blood clot. FOLLOW UP INSTRUCTIONS: Continue her aspirin twice daily. Protection with the brace on and extension. We will see her back in another week or so with repeat films. Ms. Evelio Michelle was advised as to contrast therapies and/or to take analgesics/anti-inflammatories as needed and all contraindications were reviewed. OBJECTIVE: Ms. Evelio Michelle is a pleasant 61 year old in no apparent distress. Gen:LMP 07/18/2010 nl development, non obese, no deformities ENT: Normocephalic, normal hearing, moist mucosa CV: Pulses:DP/PT= 2+ and symmetric, capillary refill < 2 secs, no peripheral edema/varicosities Skin: no rash, bruising or lesions. Good turgor. Psych: cooperative and appropriate, alert and oriented x 3, good mood and affect. Musculoskeletal: Tender, appropriately. Intact extensor mechanism. Diffuse swelling throughout the lower leg and some tenderness in the calf but no palpable cords. Neurovascular exam intact. IMAGING: IMPRESSION: Comminuted intra-articular fracture right patella without dislocation. Detective Precinct: [facility] Transcribe Date/Time: Apr 30 2022 6:50P Dictated by : GABRIELA DUMONT MD This examination was interpreted and the report reviewed and electronically signed by: GABRIELA DUMONT MD on Apr 30 2022 6:51PM EST Results-Findings * * *Final Report* * * DATE OF EXAM: Apr 30 2022 6:42PM WOX 5203 - XR KNEE 4V AP/PA BOTH+LAT/CLEMENTINA RT / PROCEDURE REASON: Fall, initial encounter * * * * Physician Interpretation * * * * EXAMINATION: XR KNEE 4V AP/PA BOTH+LAT/CLEMENTINA RT HISTORY: Right knee pain. Fall, initial encounter. TECHNIQUE: XR KNEE 4V AP/PA BOTH+LAT/CLEMENTINA RT Laterality: RIGHT Number of different views (projections): 4 M: XB_1 COMPARISON: There are no prior relevant examinations available for comparison within the [facility]. RESULT: Standing frontal radiographs of the bilateral knees with bilateral PA flexion views, sunrise views and a lateral view of the right knee demonstrates a comminuted intra-articular fracture of the right patella there is no associated dislocation or other acute bony process. Moderate amount of suprapatellar joint fluid is present. Supporting Subjective Information Below: Past Medical History: PAST MEDICAL HISTORY Diagnosis Date Acute gastritis without mention of hemorrhage Acute SC (HCC) 04/21/2014 Nausea and then chest pressure; sent from ER to [facility]; stent placed, Cholelithiasis without cholecystitis Coronary artery disease Eczema 03/30/2011 Esophageal reflux Esophagitis, unspecified Excessive or frequent menstruation Heavy periods External hemorrhoids without mention of complication HYPERGLYCEMIA 03/15/2006 Internal hemorrhoids without mention of complication Intestinal or peritoneal adhesions with obstruction (postoperative) (postinfection) (HCC) Irritable bowel syndrome Low HDL (under 40) rest of lipids have been fine NOCTURNAL RESTLESS LEGS 04/19/2006 Past Surgical History: PAST SURGICAL HISTORY Procedure Laterality Date COLONOSCOPY FLX DX W/COLLJ SPEC WHEN PFRMD 03/06/1996 Colonoscopy COLONOSCOPY W/BIOPSY SINGLE/MULTIPLE 07/03/11 CORONARY STENT EA VESSEL 03/2014 right coronary artery EGD TRANSORAL BIOPSY SINGLE/MULTIPLE 07/03/11 ESOPHAGOGASTRODUODENOSCOPY TRANSORAL DIAGNOSTIC 02/02/2020 EGD LAPS SURG CHOLECYSTECTOMY W/CHOLANGIOGRAPHY 07/09/2020 OFFICE ENDOMETRIAL ABLATION 07/31/2010 PAST SURGICAL HISTORY OF 03/01/2000 LEFT HEEL SPUR AND LIGAMENT SURGERY PAST SURGICAL HISTORY OF benign tumor removal right side- breast Family History: FAMILY HISTORY Problem Relation Age of Onset Arthritis Mother Alzheimer's Disease Father Arthritis Maternal Grandmother Heart Maternal Grandmother CHF Cancer Maternal Grandfather Social History: Social History Tobacco Use Smoking status: Never Smokeless tobacco: Never Vaping Use Vaping Use: Never used Substance Use Topics Alcohol use: No Drug use: No Medications: Current Outpatient Medications Medication Sig ergocalciferol, vitamin D2, (VITAMIN D2 ORAL) Take 1,000 mg by mouth. famotidine (PEPCID) 20 mg tablet Take 1 tablet by mouth twice daily. aspirin, enteric coated 81 mg EC tablet Take 1 tablet by mouth once daily. Ramsay-3 Fatty Acids (FISH OIL) 500 mg cap Take 1 capsule by mouth twice daily. (Patient taking differently: Take 1,000 mg by mouth twice daily.) metoprolol tartrate, short acting, 25 mg tablet Take 0.5 tablets by mouth twice daily. lisinopril 2.5 mg tablet Take 1 tablet by mouth once daily. atorvastatin (LIPITOR) 40 mg tablet Take 1 tablet by mouth daily at bedtime. For cholesterol. cyclobenzaprine (FLEXERIL) 10 mg tablet Take 1 tablet by mouth three times daily as needed for muscle spasm. dicyclomine (BENTYL) 10 mg capsule (Patient not taking: Reported on 12/11/2021 ) cyclobenzaprine (FLEXERIL) 10 mg tablet Take 1 tablet by mouth three times daily as needed for Muscle Spasm. (Patient not taking: Reported on 03/01/2021 ) sucralfate (CARAFATE) 1 gram tablet Take 1 tablet by mouth three times daily. (Patient not taking: Reported on 12/09/2020 ) nitroglycerin sublingual (NITROSTAT) 0.4 mg SL tablet Dissolve 1 tablet under the tongue every 5 minutes as needed. prasugrel (EFFIENT) 10 mg tab Take 1 tablet by mouth once daily. (Patient not taking: Reported on 12/09/2020 ) No current facility-administered medications for this visit. Allergies: Levaquin [Levofloxacin] ROS: General (negative for fatigue, malaise, weight loss/gain) HEENT (negative for headache, earache, recent vision changes, sinus pain, sore throat) Respiratory (no recent shortness of breath, hemoptysis) CV (negative for chest tightness, palpitations) Musculoskeletal (see HPI) Psych (no depression, anxiety) REFERRING PHYSICIAN: Ms. Evelio Michelle was referred to me for consultation by the following physician. This consultation note will be sent to the following physician by either mail or electronic medical record. Mary Grace Patton [address] [facility] [address] Nathanael Cabral DO [address] [facility] [id number] Thiago Gomez MD documented in this encounter [facility] 04-30-2022 History of Present illness Narrative Images from the original note were not included. Subjective She came in with complaints of right knee pain. Patient says she fell earlier today on the sidewalk. Patient says she landed on both knees and her hands. Patient's not worried about anything but the right knee at this time. Patient says it is tender to movement or rotated or walk on it. But when she is sitting and just touches it that does not hurt. The history is provided by the patient. No equipment associate was used. Fall Review of Systems Constitutional: Negative. Skin: Negative. Objective Physical Exam Constitutional: Appearance: Normal appearance. Pulmonary: Effort: Pulmonary effort is normal. Skin: General: Skin is warm. Comments: Small surface abrasion noted in area marked above. Neurological: Mental Status: She is alert. PAST MEDICAL HISTORY Diagnosis Date Acute gastritis without mention of hemorrhage Acute SC (HCC) 04/21/2014 Nausea and then chest pressure; sent from ER to [facility]; stent placed, Cholelithiasis without cholecystitis Coronary artery disease Eczema 03/30/2011 Esophageal reflux Esophagitis, unspecified Excessive or frequent menstruation Heavy periods External hemorrhoids without mention of complication HYPERGLYCEMIA 03/15/2006 Internal hemorrhoids without mention of complication Intestinal or peritoneal adhesions with obstruction (postoperative) (postinfection) (HCC) Irritable bowel syndrome Low HDL (under 40) rest of lipids have been fine NOCTURNAL RESTLESS LEGS 04/19/2006 PAST SURGICAL HISTORY Procedure Laterality Date COLONOSCOPY FLX DX W/COLLJ SPEC WHEN PFRMD 03/06/1996 Colonoscopy COLONOSCOPY W/BIOPSY SINGLE/MULTIPLE 07/03/11 CORONARY STENT EA VESSEL 03/2014 right coronary artery EGD TRANSORAL BIOPSY SINGLE/MULTIPLE 07/03/11 ESOPHAGOGASTRODUODENOSCOPY TRANSORAL DIAGNOSTIC 02/02/2020 EGD LAPS SURG CHOLECYSTECTOMY W/CHOLANGIOGRAPHY 07/09/2020 OFFICE ENDOMETRIAL ABLATION 07/31/2010 PAST SURGICAL HISTORY OF 03/01/2000 LEFT HEEL SPUR AND LIGAMENT SURGERY PAST SURGICAL HISTORY OF benign tumor removal right side- breast ALLERGIES Levaquin [Levofloxacin] MEDICATIONS cyclobenzaprine (FLEXERIL) 10 mg tablet Take 1 tablet by mouth three times daily as needed for muscle spasm. ergocalciferol, vitamin D2, (VITAMIN D2 ORAL) Take 1,000 mg by mouth. nitroglycerin sublingual (NITROSTAT) 0.4 mg SL tablet Dissolve 1 tablet under the tongue every 5 minutes as needed. aspirin, enteric coated 81 mg EC tablet Take 1 tablet by mouth once daily. metoprolol tartrate, short acting, 25 mg tablet Take 0.5 tablets by mouth twice daily. lisinopril 2.5 mg tablet Take 1 tablet by mouth once daily. atorvastatin (LIPITOR) 40 mg tablet Take 1 tablet by mouth daily at bedtime. For cholesterol. dicyclomine (BENTYL) 10 mg capsule (Patient not taking: Reported on 12/11/2021 ) cyclobenzaprine (FLEXERIL) 10 mg tablet Take 1 tablet by mouth three times daily as needed for Muscle Spasm. (Patient not taking: Reported on 03/01/2021 ) sucralfate (CARAFATE) 1 gram tablet Take 1 tablet by mouth three times daily. (Patient not taking: Reported on 12/09/2020 ) famotidine (PEPCID) 20 mg tablet Take 1 tablet by mouth twice daily. prasugrel (EFFIENT) 10 mg tab Take 1 tablet by mouth once daily. (Patient not taking: Reported on 12/09/2020 ) Ramsay-3 Fatty Acids (FISH OIL) 500 mg cap Take 1 capsule by mouth twice daily. (Patient taking differently: Take 1,000 mg by mouth twice daily. ) FAMILY HISTORY Problem Relation Age of Onset Arthritis Mother Alzheimer's Disease Father Arthritis Maternal Grandmother Heart Maternal Grandmother CHF Cancer Maternal Grandfather Social History Tobacco Use Smoking status: Never Smokeless tobacco: Never Vaping Use Vaping Use: Never used Substance Use Topics Alcohol use: No Drug use: No ASSESSMENT/PLAN: 1. Fall, initial encounter - ICD9: E888.9, ICD10: W19.XXXA - XR KNEE GENERAL 4V AP BOTH/PA BOTH/LAT/MERC RIGHT * * * * Physician Interpretation * * * * EXAMINATION: XR KNEE 4V AP/PA BOTH+LAT/CLEMENTINA RT HISTORY: Right knee pain. Fall, initial encounter. TECHNIQUE: XR KNEE 4V AP/PA BOTH+LAT/CLEMENTINA RT Laterality: RIGHT Number of different views (projections): 4 M: XB_1 COMPARISON: There are no prior relevant examinations available for comparison within the [facility]. RESULT: Standing frontal radiographs of the bilateral knees with bilateral PA flexion views, sunrise views and a lateral view of the right knee demonstrates a comminuted intra-articular fracture of the right patella there is no associated dislocation or other acute bony process. Moderate amount of suprapatellar joint fluid is present. IMPRESSION IMPRESSION: Comminuted intra-articular fracture right patella without dislocation. Detective Precinct: [facility] Transcribe Date/Time: Apr 30 2022 6:50P Dictated by : GABRIELA DUMONT MD Patient was placed in a knee immobilizer. Patient was given red flag symptoms such as worsening pain increased swelling that she needed to go to the ER if this happens. Patient was set up with an orthopedic appointment will copy the orthopedic doctor to this chart to review that her appointment time is appropriate. Patient was instructed to rest ice elevate and use Tylenol until her follow-up with Ortho. Patient was okay with this care plan. Mary Grace Patton APRN.CNP documented in this encounter [facility] 02-05-2022 Instructions Francine Isaac APRN.CNP - 02/05/2022 7:35 PM EDT Possible environmental Rest, elevate, hydrate Ice If continued swelling, advise to follow up with Dr. Cabral documented in this encounter [facility] 02-05-2022 History of Present illness Narrative Images from the original note were not included. Subjective The history is provided by the patient. No equipment associate was used. HPI Evelio Michelle is a 61 year old female who presents today for CC of left foot swelling and pain with walking. She denies any known trauma or injury. On memorial scraped the top of the left foot with a metal stake, which has since healed. She has a h/o CAD. She denies any calf or leg pain. BP 134/80 Pulse 77 Temp 36.6 C (97.8 F) Resp 16 Wt 91.4 kg (201 lb 6.4 oz) LMP 07/18/2010 SpO2 99% BMI 32.37 kg/m Social History Tobacco Use Smoking status: Never Smoker Smokeless tobacco: Never Used Vaping Use Vaping Use: Never used Substance Use Topics Alcohol use: No Drug use: No PAST MEDICAL HISTORY Diagnosis Date Acute gastritis without mention of hemorrhage Acute SC (HCC) 04/21/2014 Nausea and then chest pressure; sent from ER to [facility]; stent placed, Cholelithiasis without cholecystitis Coronary artery disease Eczema 03/30/2011 Esophageal reflux Esophagitis, unspecified Excessive or frequent menstruation Heavy periods External hemorrhoids without mention of complication HYPERGLYCEMIA 03/15/2006 Internal hemorrhoids without mention of complication Intestinal or peritoneal adhesions with obstruction (postoperative) (postinfection) (HCC) Irritable bowel syndrome Low HDL (under 40) rest of lipids have been fine NOCTURNAL RESTLESS LEGS 04/19/2006 I have confirmed and edited as necessary, the [facility] Review of Systems Constitutional: Negative for chills and fever. Respiratory: Negative for shortness of breath. Cardiovascular: Positive for leg swelling (left). Negative for chest pain and claudication. Musculoskeletal: Negative for joint pain and myalgias. Skin: Negative for itching and rash. All other systems reviewed and are negative. Objective Physical Exam Vitals and nursing note reviewed. Cardiovascular: Rate and Rhythm: Normal rate and regular rhythm. Pulses: Dorsalis pedis pulses are 2+ on the right side and 2+ on the left side. Posterior tibial pulses are 2+ on the right side and 2+ on the left side. Heart sounds: Normal heart sounds. Pulmonary: Effort: Pulmonary effort is normal. Musculoskeletal: Right lower leg: No edema. Left lower leg: No swelling, deformity, lacerations, tenderness or bony tenderness. No edema. Right foot: Normal. Left foot: Normal range of motion. Swelling (in left foot non pitting) and tenderness (pedal, medial distal, with pressure) present. No bony tenderness. Normal pulse. Legs: Comments: Negative concha's Skin: General: Skin is warm and dry. Neurological: Mental Status: She is alert and oriented to person, place, and time. Psychiatric: Mood and Affect: Affect normal. Wells score for DVT = 0 low probability. Mild swelling - possible environmental, due to heat ASSESSMENT/PLAN: 1. Left foot pain - ICD9: 729.5, ICD10: M79.672 (primary diagnosis) - XR FOOT GENERAL 3V AP/LAT/OBL LEFT 2. Localized swelling of left foot - ICD9: 782.2, ICD10: R22.42 Rest, elevate, hydrate Ice If continued swelling, advise to follow up with Dr. Cabral - XR FOOT GENERAL 3V AP/LAT/OBL LEFT RESULT: Findings: Narrowing at multiple interphalangeal joints. No fracture or dislocation identified. No soft tissue abnormality identified. IMPRESSION: No acute osseous abnormality identified. Interpreted by : LUZ MARIA STRONG MD Diagnosis and treatment plan were discussed and questions were answered to the patient's satisfaction. Pt acknowledged understanding of concepts and follow up plan. Specific signs and symptoms that would indicate the need for higher level of care were discussed in detail warranting prompt ER evaluation. Francine Iasac APRN.ALBER documented in this encounter [facility] 12-18-2021 History of Present illness Narrative Episode Visit Count: 1 Therapist That Will Oversee The Plan Of Care: Arielle Cabral PT Start of Care Date: 12/18/21 Onset Date: 11/17/21 Patient Identified by Name and Date of : Yes REHABILITATION AND SPORTS THERAPY PHYSICAL THERAPY EVALUATION PLAN OF CARE: Assessment: Evelio Michelle presents with diagnosis of right cervical radiculopathy that interferes with nothing . She presents with impairments in pain throughout the day . . Prognosis for therapy is Excellent due to: current objective clinical presentation;good overall health status .She will benefit from skilled therapy services to meet the goals established for this plan of care as noted below. Classification MDT Spine Classification: Derangement Syndrome Derangement Syndrome Subclassification: Pain is Unilateral or Asymmetrical above the elbow Derangement Syndrome Criteria: Centralization Goals for Episode of Care: created on 12/18/21 through 01/29/22 Independent in a Home Exercise Program. Patient will decrease pain to 1/10 with functional activities to allow patient to improve quality of activities during the day Restore pain free cervical ROM Maintain proper sitting posture throughout the session to allow for decreased stress to cervical area Knowledgeable RE: prophylaxis. Patient will increase strength of postural and neck mm to allow for improve ability to maintain proper posture, improve mechanics and decrease pain.. Centralize pain to cervical area only to improve quality of daily activities Patient Goals: alleviate pain Planned Interventions, Frequency, and Duration: Current Frequency: 1x/week Duration: 4 weeks Total Number of Visits Planned: 4 Planned Treatment Interventions: Therapeutic exercise (73582);Neuromuscular re-education (48656);Manual therapy (37341);Therapeutic activities (99145);Self-[place] [facility] management (96796);Patient/Family/Caregiver Education;Functional training PLAN FOR NEXT VISIT: Will add scapular retraction , isometric cervical extension Patient demonstrates good understanding of plan of care and treatment. The above goals and plan of care were discussed and agreed upon by patient/family. SUBJECTIVE: Evelio Michelle is a 61 year old female seen today for Pain in right neck and scapular area which extends down the back of right arm, most of the time just to elbow but sometimes down to the wrist. 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 Recreation / Current Exercise: treadmill 3-4 times per week . also yoga Hobbies / Interests: being outdoors Intake Information: Prescription present Previous Treatment: Steroids ;Heat ;Self prescribed exercises Spine History Symptoms Since Onset: Unchanging Pain is Worse Always: Sitting;As the day progresses Pain is Better Always: Lying;AM;Standing (putting arm up over head) Sleeping Position: Side lying left;Side lying right Sleep Affected by Pain: Not affected by pain Pain: Pain Pain Level: 2 (worst in last week 01/30) Pain Location: Neck - Left;Arm - Right Description: Aching Frequency: Continuous Post Treatment Pain Post Treatment Pain Level: No Change Post Treatment Pain Location: Neck - Right;Arm - Right (to elbow) Post Treatment Pain Description: Aching PROMIS Scales Higher is Better 12/27/2019 12/27/2019 GH Physical - Score - Incomplete GH Mental - Score - 48.3 GH Mental - Percentile 43 % 43 % T-scores: mean of general population = 50. 5 points is clinically meaningfully difference Percentiles provide an indication of how the patient's score ranks in relation to the general population. Higher percentile rankings indicate better function/quality of life. 50th percentile is the average of the general population and indicates half of respondents had a worse score. T-scores: mean of general population = 50. 5 points is clinically meaningfully difference Percentiles provide an indication of how the patient's score ranks in relation to the general population. Higher percentile rankings indicate better function/quality of life. 50th percentile is the average of the general population and indicates half of respondents had a worse score. OBJECTIVE MEASURES WITH LEVEL OF FUNCTION: Spine Observations R Cervical Spine Palpation Tenderness: Upper trapezius Cervical Spine ROM Cervical ROM : Measurement AROM Cervical Retraction AROM (cm) : 4 cm Cervical Flexion AROM (degrees) : 50 Degrees Cervical Extension AROM (degrees) : 55 Degrees Cervical Side-Bend Right AROM (degrees): 35 Degrees Cervical Side-Bend Left AROM (degrees) : 40 Degrees (feels in scapular area) Cervical Rotation Right AROM (degrees) : 68 Degrees Cervical Rotation Left AROM (degrees) : 74 Degrees Repeated Test Movements - Cervical Cervical RET - Symptoms During: no effect Cervical RET - Symptoms After: no effect UE AROM R UE AROM: WNL all planes for shoulder UE and Cervical Strength Strength Tested: Myotome Cervical/Shoulder R Shoulder Abduction (C5): 5/5 R Shoulder Internal Rotation: 5/5 R Shoulder External Rotation: 5/5 R Elbow Extension (C7): 5/5 R Elbow Flexion (C6): 5/5 R Wrist Extension: 5/5 Functional Strength Functional Strength: no liimitations noted Special Tests - Cervical Cervical Special Tests: Cervical Compression;Cervical Distraction;Spurling Cervical Compression: Negative Cervical Distraction: Positive (for relief, lying down abolishes sx) Spurling: Right Negative;Left Negative Gait Gait Observation: normal Education: Education Learning Preferences: Demonstration;Explanation;Performance Barriers: None Learning/educational needs: Home exercise program;Plan of Care Education Provided: Yes, see treatment interventions for education provided Education Provided To: Patient Education Mode/Type: Demonstration;Explanation/Discussion;P erformance;Literature/Printed Materials Response to Education/Teach Back: States/Identifies;Return Demonstration TREATMENT: PT Treatment Interventions: Therapeutic Exercise;Self-Assisted Management Evaluation Therapeutic Exercise: 1: cervical retraction 1x10 2: left cervical LF discussed expected results, discontinue if sx increase Skilled Intervention: Patient was educated in proper exercise technique and purpose for exercises. Skilled judgment was provided in selection of appropriate interventions. Correct performance of therapeutic exercises was facilitated with verbal and visual cuing. Educated patient on rationale for performing exercises in regards to ROM and function . Patient education as noted. Self-Assisted Management: 1: education on postural correction sitting at work with lumbar roll 2: education on centralization fo sx and modifications of activities that cause increased sx down arm 3: discussed cervical origin of sx and anatomy and biomechanics Skilled Intervention: Skilled judgment in the selection of proper modification for activity of daily living/home management based on clinical presentation, deficits, and needs. Physical assistance was provided during education for modifications and patient safety. Reviewed patient specific diagnosis in relation to activities of daily living/home management. Home Exercise Program Assigned: 1: as outlined above Billing * Evaluation Low Complexity: 1 Unit Therapeutic Exercise Treatment Minutes: 10 Self-Care/Home Management Treatment Minutes: 15 Total Treatment Time Minutes (timed/untimed): 25 Arielle Cabral PT documented in this encounter [facility] 12-08-2021 Miscellaneous Notes Pt scheduled 12/11 RS Noemí Arreola Ma She needs an appointment for assessment as to the origin or cause of the pain. We can then order testing or medications as necessary. Lorna Zavala APRN.CNP Pt calls to report she was seen in on 11/12 for neck pain which radiated down right arm. Pt was prescribed prednisone. Pt report she finished prednisone and had some relief for 3-4 days. Pt reports now the same pain has started up again in neck and radiating down right arm. Pt is asking what the next step would be. Please review and advise. Emelia Partida LPN documented in this encounter [facility] 11-24-2021 Miscellaneous Notes Agree with below. Lorna Zavala APRN.CNP Patient reports she is taking the prednisone taper for neck pain- which has improved, but yesterday noted her face was puffy, today her cheeks are flushed. No SOB or wheezing, or any other symptoms. Advised to use cool compress on face to see if improves. Patient agreeable. Advised to continue taking the prednsone as advised, as could be dangerous to stop suddenly. Patient agreeable, states she just wanted to know if these symptoms are normal. Advised to ER if becomes worse or develops, wheezing or SOB. Patient agreeable and states she is not having any concerning symptoms, and will call back with any questions or concerns. documented in this encounter [facility] 11-17-2021 Miscellaneous Notes Pt notified and verbalized understanding Noemí Arreola Ma Yes, okay to take the prednisone with a meal Nathanael Cabral DO Pt called in and reports she went to and they prescribed her Prednisone. Pt states she is reading the precautions and it says not to take if you have heart or stomach problems, which the Pt states she has both. Pt wanted to know if provider though it was safe for her to take the medication. Please call back and advise. documented in this encounter [facility] 03-01-2021 History of Present illness Narrative Radiology Service Progress Note PATIENT NAME: Evelio Michelle DATE OF SERVICE: March 01, 2021 TIME: 11:55 AM PATIENT IDENTITY VERIFICATION COMPLETED USING TWO (2) IDENTIFIERS: Name and Date of confirmed by patient verbally. FALL SCREENING: Has the patient had 2 falls in the last year or 1 fall with injury or currently using an Ambulatory Assistive Device (Walker, Cane, Wheelchair, Crutches, etc.)? No PATIENT GENDER DATA: Female. status: : No status: NO. PATIENT RELEVANT IMPLANT DATA REVIEWED: Not Applicable RADIOLOGY DEPARTMENT: General X-ray: Exam(s) Completed: Lower Extremity X-Ray(s): Foot, Left and Wt. Bearing PERIPHERAL IV DATA: Not applicable SIGNED BY: RT Luis Felipe(R) March 01, 2021 11:55 AM documented in this encounter [facility] 03-01-2006 History of Past i llness Narrative Problem Noted Date Resolved Date Neck pain 03/01/2006 01/02/2022 documented as of this encounter (statuses as of 02/05/2022) [facility] History of Past illness Narrative* Problem Noted Date Resolved Date Neck pain 03/01/2006 01/02/2022 documented as of this encounter (statuses as of 04/30/2022) [address]10-2006 History of Past illness Narrative* Problem Noted Date Resolved Date Neck pain 03/01/2006 01/02/2022 documented as of this encounter (statuses as of 05/14/2022) [facility] History of Past illness Narrative* Problem Noted Date Resolved Date Neck pain 03/01/2006 01/02/2022 documented as of this encounter (statuses as of 05/14/2022) [facility] History of Past illness Narrative* Problem Noted Date Resolved Date Neck pain 03/01/2006 01/02/2022 documented as of this encounter (statuses as of 05/15/2022) [address]2006 History of Past illness Narrative* Problem Noted Date Resolved Date Neck pain 03/01/2006 01/02/2022 documented as of this encounter (statuses as of 05/15/2022) [facility] History of Past illness Narrative* Problem Noted Date Resolved Date Neck pain 03/01/2006 01/02/2022 documented as of this encounter (statuses as of 05/20/2022) [address]2006 History of Past illness Narrative* Problem Noted Date Resolved Date Neck pain 03/01/2006 01/02/2022 documented as of this encounter (statuses as of 06/13/2022) [address]2006 History of Past illness Narrative* Problem Noted Date Resolved Date Neck pain 03/01/2006 01/02/2022 documented as of this encounter (statuses as of 06/17/2022) [address]2006 History of Past illness Narrative* Problem Noted Date Resolved Date Neck pain 03/01/2006 01/02/2022 documented as of this encounter (statuses as of 06/18/2022) [address]2006 History of Past illness Narrative* Problem Noted Date Resolved Date Neck pain 03/01/2006 01/02/2022 documented as of this encounter (statuses as of 06/22/2022) [address]2006 History of Past illness Narrative* Problem Noted Date Resolved Date Neck pain 03/01/2006 01/02/2022 documented as of this encounter (statuses as of 09/15/2022) [address]2006 History of Past illness Narrative* Problem Noted Date Resolved Date Neck pain 03/01/2006 01/02/2022 documented as of this encounter (statuses as of 10/30/2022) [address]2006 History of Past illness Narrative* Problem Noted Date Resolved Date Neck pain 03/01/2006 01/02/2022 documented as of this encounter (statuses as of 12/24/2022) [address]2006 History of Past illness Narrative* Problem Noted Date Diagnosed Date Resolved Date Neck pain 03/01/2006 01/02/2022 documented as of this encounter (statuses as of 04/30/2023) [address]2006 History of Past illness Narrative* Problem Noted Date Diagnosed Date Resolved Date Neck pain 03/01/2006 01/02/2022 documented as of this encounter (statuses as of 06/01/2023) [address]2006 History of Past illness Narrative* Problem Noted Date Diagnosed Date Resolved Date Neck pain 03/01/2006 01/02/2022 documented as of this encounter (statuses as of 06/27/2023) [address]2006 History of Past illness Narrative* Problem Noted Date Diagnosed Date Resolved Date Neck pain 03/01/2006 01/02/2022 documented as of this encounter (statuses as of 06/27/2023) [address]2006 History of Past illness Narrative* Problem Noted Date Diagnosed Date Resolved Date Neck pain 03/01/2006 01/02/2022 documented as of this encounter (statuses as of 12/03/2023) [place] [address]-10-2006 History of Past illness Narrative* Problem Noted Date Diagnosed Date Resolved Date Neck pain 03/01/2006 01/02/2022 documented as of this encounter (statuses as of 12/06/2023) [facility] note* Diagnosis Neck pain Cervicalgia documented in this encounter [facility] note* Diagnosis Left foot pain- Primary Pain in limb Localized swelling of left foot documented in this encounter [facility] noteNo assessment information [facility]* Diagnosis Onset Date Resolution Status C7 radiculopathy acute [facility] Work Phone: evaluation note* Diagnosis Fall, initial encounter- Primary Fracture Closed fracture of unspecified bone [facility] Diagnosis Fall, initial encounter- Primary documented in this encounter [facility] note* Diagnosis Closed displaced fracture of right patella with routine healing, unspecified fracture morphology, subsequent encounter- Primary Closed nondisplaced fracture of right patella with routine healing, unspecified fracture morphology, subsequent encounter [facility]* Diagnosis Fall, initial encounter Closed nondisplaced fracture of right patella with routine healing, unspecified fracture morphology, subsequent encounter [facility] Diagnosis Right leg swelling- Primary Swelling of limb Fall, initial encounter Closed nondisplaced comminuted fracture of right patella, initial encounter [facility] Diagnosis Closed nondisplaced comminuted fracture of right patella, initial encounter- Primary documented in this encounter [facility] note* Diagnosis Closed nondisplaced comminuted fracture of right patella with routine healing, subsequent encounter- Primary documented in this encounter [facility] note* Diagnosis Need for vaccination- Primary Need for prophylactic vaccination and inoculation against unspecified single disease [facility] Diagnosis Encounter for gynecological examination (general) (routine) without abnormal findings- Primary Encounter for screening for human papillomavirus (HPV) Special screening examination for human papillomavirus (HPV) Pap smear for cervical cancer screening Screening for malignant neoplasm of the cervix Encounter for screening mammogram for breast cancer Encounter for screening for osteoporosis Special screening for osteoporosis [facility]* Diagnosis Onset Date Resolution Status Essential hypertension acute Mitral valve insufficiency a cute Atherosclerotic heart diseas e of [place] coronary artery without angina pectoris chronic Cardiomyopathy, ischemic chr onic Pure hypercholesterolemia ch [facility] Work Phone: Evaluation note* Diagnosis Sore throat- Primary Acute pharyngitis Viral illness Unspecified viral infection, in conditions classified elsewhere and of unspecified site [facility]* Diagnosis Encounter for screening mammogram for malignant neoplasm of breast Other screening mammogram [facility]* Diagnosis Encounter for screening for osteoporosis Special screening for osteoporosis [facility] Diagnosis Tick bite of abdominal wall, initial encounter- Primary documented in this encounter [facility] note* Diagnosis Closed nondisplaced comminuted fracture of right patella, initial encounter documented in this encounter [facility] note* Diagnosis Fall, initial encounter [facility] Diagnosis Left foot pain Pain in limb Localized swelling of left foot [facility] Diagnosis Neck pain Cervicalgia [facility]* Diagnosis Chronic left-sided low back pain with left-sided sciatica- Primary Left hip pain Pain in joint, pelvic region and thigh Dyslipidemia Other and unspecified hyperlipidemia Multiple thyroid nodules Nontoxic multinodular goiter Vitamin D deficiency Unspecified vitamin D deficiency IFG (impaired fasting glucose) Impaired fasting glucose documented in this encounter [facility] note* Diagnosis Chronic left-sided low back pain with left-sided sciatica Left hip pain Pain in joint, pelvic region and thigh [facility] Diagnosis Chronic left-sided low back pain with left-sided sciatica- Primary Left hip pain Pain in joint, pelvic region and thigh [facility] Diagnosis Vaginal irritation- Primary Unspecified noninflammatory disorder of vagina Yeast vaginitis Candidiasis of vulva and vagina documented in this encounter [facility] for referral (narrative)* Diagnostic Procedure Only (Urgent) - Closed Specialty Diagnoses / Procedures Referred By Contac t Referred To Contact XR IMAGING Diagnoses Left foot pain Localized swelling of left foot Procedures XR FOOT GENERAL 3V AP/LAT/OBL LEFT RADEX FOOT COMPLETE MINIMUM 3 VIEWS Francine Isaac, IT TECHNICAL SPECIALIST.SUPERVISOR RESIDENTIAL [address] [place] [address] Xr Imaging Referral ID Status Reason Start Date Expiration Date V isits Requested Visits Authorized [id number] Closed Auto-Generate d Referral 02/05/2022 03/07/2023 1 1 [facility] for referral (narrative)* Diagnostic Procedure Only (Routine) - Closed Specialty Diagnoses / Procedures Referred By Contac t Referred To Contact XR IMAGING Diagnoses Closed nondisplaced fracture of right patella with routine healing, unspecified fracture morphology, subsequent encounter Procedures XR KNEE POST OP 3V AP/LAT/MERCHANT RIGHT RADIOLOGIC EXAMINATION KNEE 3 VIEWS Thiago Gomez MD [address] [place] [address] Xr Imaging Referral ID Status Reason Start Date Expiration Date V isits Requested Visits Authorized [id number] Closed Auto-Generate d Referral 05/14/2022 06/13/2023 1 1 [facility] for referral (narrative)* Outpatient Procedure (Routine) - Closed Specialty Diagnoses / Procedures Referred By Contac t Referred To Contact [facility] Diagnoses Right leg swelling Procedures US LEG VEIN DVT UNL VAS LAB DUP-SCAN XTR VEINS UNILATERAL/LIMITED STUDY Thiago Gomez MD [address] [place] [address] [facility] [address] [place] [address] Referral ID Status Reason Start Date Expiration Date V isits Requested Visits Authorized [id number] Closed Auto-Generate d Referral 05/07/2022 08/22/2022 1 1 [facility] for referral (narrative)* Diagnostic Procedure Only (Routine) - Pending Review Specialty Diagnoses / Procedures Referred By Contac t Referred To Contact XR IMAGING Diagnoses Closed nondisplaced comminuted fracture of right patella, initial encounter Procedures XR KNEE POST OP 3V AP/LAT/MERCHANT RIGHT RADIOLOGIC EXAMINATION KNEE 3 VIEWS Thiago Gomez MD [address] [place] [address] Xr Imaging Referral ID Status Reason Start Date Expiration Date Visits Requested Visits Authorized [id number] Pending Review Auto-Generat ed Referral 07/17/2023 1 1 [facility] for referral (narrative)* Diagnostic Procedure Only (Routine) - Pending Review Specialty Diagnoses / Procedures Referred By Wilma t Referred To Contact BR IMAGING Diagnoses Encounter for screening mammogram for breast cancer Procedures KATLYN SCREENING W EFREN SCREENING DIGITAL BREAST TOMOSYNTHESIS BI SCREENING MAMMOGRAPHY BI 2-VIEW BREAST INC CAD Sofiya Yi MD [address] [place] [address] [facility] [address] [place] [address] Referral ID Status Reason Start Date Expiration Date Visits Requested Visits Authorized [id number] Pending Review Auto-Generat ed Referral 12/24/2022 01/23/2024 1 1 [facility] for referral (narrative)* Diagnostic Procedure Only (Routine) - Closed Specialty Diagnoses / Procedures Referred By Wilma jiang Referred To Contact BR IMAG[facility] Diagnoses Encounter for screening mammogram for malignant neoplasm of breast Procedures KATLYN SCREENING W EFREN SCREENING BREAST DGTL EFREN UNI/BILAT ADD ON SCREENING MAMMOGRAPHY BI 2-VIEW BREAST INC CAD Sofiya Yi MD [address] [place] [address] [facility] [address] [place] [address] Referral ID Status Reason Start Date Expiration Date V isits Requested Visits Authorized [id number] Closed Auto-Generate d Referral 08/13/2021 09/12/2022 1 1 [facility] for referral (narrative)* Diagnostic Procedure Only (Routine) - Pending Review Specialty Diagnoses / Procedures Referred By Contac t Referred To Contact BR IMAGING Procedures KATLYN SCREENING W EFREN SCREENING DIGITAL BREAST TOMOSYNTHESIS BI SCREENING MAMMOGRAPHY BI 2-VIEW BREAST INC Nathanael Garza DO [address] [place] [address] [facility] [address] [place] [address] Referral ID Status Reason Start Date Expiration Date Visits Requested Visits Authorized [id number] Pending Review Auto-Generat ed Referral 12/01/2023 12/30/2024 1 1 T [facility] for referral (narrative)* Diagnostic Procedure Only (Routine) - Closed Specialty Diagnoses / Procedures Referred By Contac t Referred To Contact XR IMAGING Diagnoses Closed nondisplaced comminuted fracture of right patella, initial encounter Procedures XR KNEE POST OP 3V AP/LAT/MERCHANT RIGHT RADIOLOGIC EXAMINATION KNEE 3 VIEWS Thiago Gomez MD [address] [place] [address] [place] [address] Referral ID Status Reason Start Date Expiration Date V isits Requested Visits Authorized [id number] Closed Auto-Generate d Referral 06/17/2022 07/17/2023 1 1 T [facility] for referral (narrative)* Diagnostic Procedure Only (Urgent) - Closed Specialty Diagnoses / Procedures Referred By Contac t Referred To Contact XR IMAGING Diagnoses Fall, initial encounter Procedures XR KNEE GENERAL 4V AP BOTH/PA BOTH/LAT/MERC RIGHT RADIOLOGIC EXAM KNEE COMPLETE 4/MORE VIEWS Mary Grace Patton APRN.SUPERVISOR RESIDENTIAL [address] [place] [address] [place] [address] Referral ID Status Reason Start Date Expiration Date V isits Requested Visits Authorized [id number] Closed Auto-Generate d Referral 04/30/2022 05/30/2023 1 1 [facility] for referral (narrative)* Diagnostic Procedure Only (Urgent) - Closed Specialty Diagnoses / Procedures Referred By Contac t Referred To Contact XR IMAGING Diagnoses Left foot pain Localized swelling of left foot Procedures XR FOOT GENERAL 3V AP/LAT/OBL LEFT RADEX FOOT COMPLETE MINIMUM 3 VIEWS Francine Isaac APRN.SUPERVISOR RESIDENTIAL [address] [place] [id number] [place] [address] Referral ID Status Reason Start Date Expiration Date V isits Requested Visits Authorized [id number] Closed Auto-Generate d Referral 02/05/2022 03/07/2023 1 1 [facility] for referral (narrative)* Diagnostic Procedure Only (Routine) - Closed Specialty Diagnoses / Procedures Referred By Contac t Referred To Contact XR IMAGING Diagnoses Neck pain Procedures XR CERV OTHER 4V AP/LAT/OBL RADEX SPINE CERVICAL 4 OR 5 VIEWS Lorna Zavala APRN.SUPERVISOR RESIDENTIAL [address] [place] [address] [place] [address] Referral ID Status Reason Start Date Expiration Date V isits Requested Visits Authorized [id number] Closed Auto-Generate d Referral 12/11/2021 01/10/2023 1 1 [facility] for referral (narrative)No reason for referral [facility] Narrative* Diagnostic Procedure Only (Routine) - Closed Specialty Diagnoses / Procedures Referred By Contac t Referred To Contact XR IMAGING Diagnoses Fall, initial encounter Procedures XR KNEE INJURY 4V AP/LAT/OBLS RIGHT RADIOLOGIC EXAM KNEE COMPLETE 4/MORE VIEWS Thiago Gomez MD [address] [place] [address] Xr Imaging Referral ID Status Reason Start Date Expiration Date V isits Requested Visits Authorized [id number] Closed Auto-Generate d Referral 05/14/2022 06/13/2023 1 1 [facility] for visit Narrative* Diagnostic Procedure Only (Routine) - Closed Specialty Diagnoses / Procedures Referred By Wilma t Referred To Contact BR IMAGING Diagnoses Encounter for screening mammogram for malignant neoplasm of breast Procedures KATLYN SCREENING W EFREN SCREENING BREAST DGTL EFREN UNI/BILAT ADD ON SCREENING MAMMOGRAPHY BI 2-VIEW BREAST INC CAD Sofiya Yi MD [address] [place] [address] [facility] [address] [place] [address] Referral ID Status Reason Start Date Expiration Date V isits Requested Visits Authorized [id number] Closed Auto-Generate d Referral 08/13/2021 09/12/2022 1 1 [facility] for visit Narrative* Diagnostic Procedure Only (Routine) - Closed Specialty Diagnoses / Procedures Referred By Wilma t Referred To Contact XR IMAGING Diagnoses Closed nondisplaced comminuted fracture of right patella, initial encounter Procedures XR KNEE POST OP 3V AP/LAT/MERCHANT RIGHT RADIOLOGIC EXAMINATION KNEE 3 VIEWS Thiago Gomez MD [address] [place] [id number] [place] [address] Referral ID Status Reason Start Date Expiration Date V isits Requested Visits Authorized [id number] Closed Auto-Generate d Referral 06/17/2022 07/17/2023 1 1 [facility] for visit Narrative* Diagnostic Procedure Only (Urgent) - Closed Specialty Diagnoses / Procedures [facility] Referred To Contact XR IMAGING Diagnoses Fall, initial encounter Procedures XR KNEE GENERAL 4V AP BOTH/PA BOTH/LAT/MERC RIGHT RADIOLOGIC EXAM KNEE COMPLETE 4/MORE VIEWS Mary Grace Patton APRN.SUPERVISOR RESIDENTIAL [address] [place] [address] [place] [address] Referral ID Status Reason Start Date Expiration Date V isits Requested Visits Authorized [id number] Closed Auto-Generate d Referral 04/30/2022 05/30/2023 1 1 [facility] for visit Narrative* Diagnostic Procedure Only (Urgent) - Closed Specialty Diagnoses / Procedures Referred By Contac t Referred To Contact XR IMAGING Diagnoses Left foot pain Localized swelling of left foot Procedures XR FOOT GENERAL 3V AP/LAT/OBL LEFT RADEX FOOT COMPLETE MINIMUM 3 VIEWS Francine Isaac, IT TECHNICAL SPECIALIST.SUPERVISOR RESIDENTIAL [address] [place] [address] [place] [address] Referral ID Status Reason Start Date Expiration Date V isits Requested Visits Authorized [id number] Closed Auto-Generate d Referral 02/05/2022 03/07/2023 1 1 [facility] for visit Narrative* Diagnostic Procedure Only (Routine) - Closed Specialty Diagnoses / Procedures Referred By Contac t Referred To Contact XR IMAGING Diagnoses Neck pain Procedures XR CERV OTHER 4V AP/LAT/OBL RADEX SPINE CERVICAL 4 OR 5 VIEWS Lorna Zavala, IT TECHNICAL SPECIALIST.SUPERVISOR RESIDENTIAL [address] [place] [address] [place] [address] Referral ID Status Reason Start Date Expiration Date V isits Requested Visits Authorized [id number] Closed Auto-Generate d Referral 12/11/2021 01/10/2023 1 1 [facility] for visit Narrative* Diagnostic Procedure Only (Routine) - Closed Specialty Diagnoses / Procedures Referred By Contac t Referred To Contact BR IMAGING Procedures KATLYN SCREENING W EFREN SCREENING DIGITAL BREAST TOMOSYNTHESIS BI SCREENING MAMMOGRAPHY BI 2-VIEW BREAST INC CAD Nathanael Cabral, DO [address] [place] [address] [facility] Imaging [address] [place] [address] Referral ID Status Reason Start Date Expiration Date V isits Requested Visits Authorized [id number] Closed Auto-Generate d Referral 12/01/2023 12/30/2024 1 1 [facility] for visit Narrative* Diagnostic Procedure Only (Routine) - Closed Specialty Diagnoses / Procedures Referred By Contac t Referred To Contact XR IMAGING Diagnoses Chronic left-sided low back pain with left-sided sciatica Left hip pain Procedures XR HIP GENERAL 3V PELV/AP/LAT LEFT RADEX HIP UNILATERAL WITH PELVIS 2-3 VIEWS Nathanael Cabral, DO [address] [place] [address] [place] [address] Referral ID Status Reason Start Date Expiration Date V isits Requested Visits Authorized [id number] Closed Auto-Generate d Referral 09/01/2024 10/01/2025 1 1 [facility] Summary Purpose Family History No Family History Records Found Relationship Condition Age at Onset Recorded Date/T sandip father Hypertension Unknown mother Hyperlipidemia Unknown Advance Directives No Advanced Directives Records FoundDocuments on File Type Date Recorded Patient Clinical Nurse Expl anation Advance Directive(s) 07/09/2020 8:53 AM Advance Directive(s) 02/02/2020 7:25 AM Advance Directive(s) 01/24/2020 5:48 PM Documents on File Type Date Recorded Patient Clinical Nurse Expl anation Advance Directive(s) 07/09/2020 8:53 AM Advance Directive(s) 02/02/2020 7:25 AM Advance Directive(s) 01/24/2020 5:48 PM Advance Directive Response Recorded Date/ Time Living Will Yes February 11, 2022 11:56am Power of Blower Mechanic Yes February 11 11:56am Advance Directive Response Recorded Date/ Time Living Will Yes February 11, 2022 11:56am Do you have a Healthcare Power of Blower Mechanic? Yes February 11, 2022 11:56am Chief Complaint and Reason for Visit Chief Complaint CP/CAD Chief Complaint CP/CAD CERVICAL SPINE xray NECK PAIN Reason for Visit C7 radiculopathy Chief Complaint 1 Y FU PREV PFM PT ATHEROSCLEROTIC HEART DISEASE ATHEROSCLEROTIC HEART DISEASE Reason for Visit Essential hypertensi on Mitral valve insufficiency Atherosclerotic heart disease of [place] coronary artery without angina pectoris Cardiomyopathy, ischemic Pure hypercholesterolemia Chief Complaint Admit Date 1 Y FU February 13, 2025 11:0 6am Reason for Referral Specialty Diagnoses / Procedures Referred By Contac t Referred To Contact Orthopedics Diagnoses Fall, initial encounter Procedures CONSULT TO ORTHOPAEDICS OFFICE/OUTPATIENT [facility] 60-74 MINUTES Mary Grace Patton APRN.SUPERVISOR RESIDENTIAL [address] [place] [address] Referral ID Status Reason Start Date Expiration Date Visits Requested Visits Authorized [id number] Pending Review PCP Requested Referral 04/30/2022 04/30/2023 1 1 Specialty Diagnoses / Procedures Referred By Contac t Referred To Contact XR IMAGING Diagnoses Fall, initial encounter Procedures XR KNEE GENERAL 4V AP BOTH/PA BOTH/LAT/MERC RIGHT RADIOLOGIC EXAM KNEE COMPLETE 4/MORE VIEWS Mary Grace Patton APRN.SUPERVISOR RESIDENTIAL [address] [place] [address] Xr Imaging Referral ID Status Reason Start Date Expiration Date V isits Requested Visits Authorized [id number] Closed Auto-Generate d Referral 04/30/2022 05/30/2023 1 1 Specialty Diagnoses / Procedures Referred By Contac t Referred To Contact [facility] Diagnoses Chronic left-sided low back pain with left-sided sciatica Left hip pain Procedures CONSULT TO PHYSICAL THERAPY PHYSICAL THERAPY EVALUATION HIGH COMPLEX 45 MINS Nathanael Cabral, DO [address] [place] [address] [facility] [address] [place] [address] Referral ID Status Reason Start Date Expiration Date Visits Requested Visits Authorized [id number] Authorized PCP Requested Referral Auto-Generate d Referral 09/01/2024 09/01/2025 99 99 Specialty Diagnoses / Procedures Referred By Contac t Referred To Contact XR IMAGING Diagnoses Chronic left-sided low back pain with left-sided sciatica Left hip pain Procedures XR HIP GENERAL 3V PELV/AP/LAT LEFT RADEX HIP UNILATERAL WITH PELVIS 2-3 VIEWS Nathanael Cabral, DO [address] [place] [address] [place] [address] Referral ID Status Reason Start Date Expiration Date V isits Requested Visits Authorized [id number] Closed Auto-Generate d Referral 09/01/2024 10/01/2025 1 1 Specialty Diagnoses / Procedures Referred By Contac t Referred To Contact XR IMAGING Diagnoses Chronic left-sided low back pain with left-sided sciatica Procedures XR LUMBAR GENERAL 3V AP/LAT/L5-S1 RADEX SPINE LUMBOSACRAL 2/3 VIEWS Nathanael Cabral, DO [address] [place] [address] [place] [address] Referral ID Status Reason Start Date Expiration Date V isits Requested Visits Authorized [id number] Closed Auto-Generate d Referral 09/01/2024 10/01/2025 1 1 Referral ID Status Reason Start Date Expiration Date Visits Requested Visits Authorized [id number] Authorized PCP Requested Referral Auto-Generate d Referral 09/06/2024 09/06/2025 99 99 Health Concerns Infection Onset Date Last Indicated Resolved Time COVID-19 Rule-Out 04/30/2023 04/30/2023 Infection Onset Date Last Indicated Resolved Time COVID-19 Confirmed 04/30/2023 04/30/2023 8:51 PM EDT Additional Source Comments INFORMATION SOURCE (unrecogn ized section and content) DATE CREATED AUTHOR 05/10/2020 [facility] DATE CREATED AUTHOR AUTHOR'S ORGANIZ ATION 02/13/2025 [facility] DATE CREATED AUTHOR AUTHOR'S ORGANIZ ATION 06/30/2025 [place] Source Comments (unrecognize d section and content) In the event this informatio n is protected by the Federal Confidentiality of Alcohol and Drug Abuse Patient Records regulations: The Federal rules restrict any use of the information to criminally investigate or prosecute any alcohol or drug abuse patient.[facility] HospitalIn the event this information is protected by the Federal Confidentiality of Alcohol and Drug Abuse Patient Records regulations: The Federal rules restrict any use of the information to criminally investigate or prosecute any alcohol or drug abuse patient.[facility] HospitalIn the event this information is protected by the Federal Confidentiality of Alcohol and Drug Abuse Patient Records regulations: The Federal rules restrict any use of the information to criminally investigate or prosecute any alcohol or drug abuse patient.[facility] HospitalIn the event this information is protected by the Federal Confidentiality of Alcohol and Drug Abuse Patient Records regulations: The Federal rules restrict any use of the information to criminally investigate or prosecute any alcohol or drug abuse patient.[facility] HospitalIn the event this information is protected by the Federal Confidentiality of Alcohol and Drug Abuse Patient Records regulations: The Federal rules restrict any use of the information to criminally investigate or prosecute any alcohol or drug abuse patient.[facility] HospitalIn the event this information is protected by the Federal Confidentiality of Alcohol and Drug Abuse Patient Records regulations: The Federal rules restrict any use of the information to criminally investigate or prosecute any alcohol or drug abuse patient.[facility] HospitalIn the event this information is protected by the Federal Confidentiality of Alcohol and Drug Abuse Patient Records regulations: The Federal rules restrict any use of the information to criminally investigate or prosecute any alcohol or drug abuse patient.[facility] HospitalIn the event this information is protected by the Federal Confidentiality of Alcohol and Drug Abuse Patient Records regulations: The Federal rules restrict any use of the information to criminally investigate or prosecute any alcohol or drug abuse patient.[facility] HospitalIn the event this information is protected by the Federal Confidentiality of Alcohol and Drug Abuse Patient Records regulations: The Federal rules restrict any use of the information to criminally investigate or prosecute any alcohol or drug abuse patient.[facility] HospitalIn the event this information is protected by the Federal Confidentiality of Alcohol and Drug Abuse Patient Records regulations: The Federal rules restrict any use of the information to criminally investigate or prosecute any alcohol or drug abuse patient.[facility] HospitalIn the event this information is protected by the Federal Confidentiality of Alcohol and Drug Abuse Patient Records regulations: The Federal rules restrict any use of the information to criminally investigate or prosecute any alcohol or drug abuse patient.[facility] HospitalIn the event this information is protected by the Federal Confidentiality of Alcohol and Drug Abuse Patient Records regulations: The Federal rules restrict any use of the information to criminally investigate or prosecute any alcohol or drug abuse patient.[facility] HospitalIn the event this information is protected by the Federal Confidentiality of Alcohol and Drug Abuse Patient Records regulations: The Federal rules restrict any use of the information to criminally investigate or prosecute any alcohol or drug abuse patient.[facility] HospitalIn the event this information is protected by the Federal Confidentiality of Alcohol and Drug Abuse Patient Records regulations: The Federal rules restrict any use of the information to criminally investigate or prosecute any alcohol or drug abuse patient.[facility] HospitalIn the event this information is protected by the Federal Confidentiality of Alcohol and Drug Abuse Patient Records regulations: The Federal rules restrict any use of the information to criminally investigate or prosecute any alcohol or drug abuse patient.[facility] HospitalIn the event this information is protected by the Federal Confidentiality of Alcohol and Drug Abuse Patient Records regulations: The Federal rules restrict any use of the information to criminally investigate or prosecute any alcohol or drug abuse patient.[facility] HospitalIn the event this information is protected by the Federal Confidentiality of Alcohol and Drug Abuse Patient Records regulations: The Federal rules restrict any use of the information to criminally investigate or prosecute any alcohol or drug abuse patient.[facility] HospitalIn the event this information is protected by the Federal Confidentiality of Alcohol and Drug Abuse Patient Records regulations: The Federal rules restrict any use of the information to criminally investigate or prosecute any alcohol or drug abuse patient.[facility] HospitalIn the event this information is protected by the Federal Confidentiality of Alcohol and Drug Abuse Patient Records regulations: The Federal rules restrict any use of the information to criminally investigate or prosecute any alcohol or drug abuse patient.[facility] HospitalIn the event this information is protected by the Federal Confidentiality of Alcohol and Drug Abuse Patient Records regulations: The Federal rules restrict any use of the information to criminally investigate or prosecute any alcohol or drug abuse patient.[facility] HospitalIn the event this information is protected by the Federal Confidentiality of Alcohol and Drug Abuse Patient Records regulations: The Federal rules restrict any use of the information to criminally investigate or prosecute any alcohol or drug abuse patient.[facility] HospitalIn the event this information is protected by the Federal Confidentiality of Alcohol and Drug Abuse Patient Records regulations: The Federal rules restrict any use of the information to criminally investigate or prosecute any alcohol or drug abuse patient.[facility] HospitalIn the event this information is protected by the Federal Confidentiality of Alcohol and Drug Abuse Patient Records regulations: The Federal rules restrict any use of the information to criminally investigate or prosecute any alcohol or drug abuse patient.[facility] HospitalIn the event this information is protected by the Federal Confidentiality of Alcohol and Drug Abuse Patient Records regulations: The Federal rules restrict any use of the information to criminally investigate or prosecute any alcohol or drug abuse patient.[facility] HospitalIn the event this information is protected by the Federal Confidentiality of Alcohol and Drug Abuse Patient Records regulations: The Federal rules restrict any use of the information to criminally investigate or prosecute any alcohol or drug abuse patient.[facility] HospitalIn the event this information is protected by the Federal Confidentiality of Alcohol and Drug Abuse Patient Records regulations: The Federal rules restrict any use of the information to criminally investigate or prosecute any alcohol or drug abuse patient.[facility] HospitalIn the event this information is protected by the Federal Confidentiality of Alcohol and Drug Abuse Patient Records regulations: The Federal rules restrict any use of the information to criminally investigate or prosecute any alcohol or drug abuse patient.[facility] HospitalIn the event this information is protected by the Federal Confidentiality of Alcohol and Drug Abuse Patient Records regulations: The Federal rules restrict any use of the information to criminally investigate or prosecute any alcohol or drug abuse patient.[facility] HospitalIn the event this information is protected by the Federal Confidentiality of Alcohol and Drug Abuse Patient Records regulations: The Federal rules restrict any use of the information to criminally investigate or prosecute any alcohol or drug abuse patient.[facility] HospitalIn the event this information is protected by the Federal Confidentiality of Alcohol and Drug Abuse Patient Records regulations: The Federal rules restrict any use of the information to criminally investigate or prosecute any alcohol or drug abuse patient.[facility] HospitalIn the event this information is protected by the Federal Confidentiality of Alcohol and Drug Abuse Patient Records regulations: The Federal rules restrict any use of the information to criminally investigate or prosecute any alcohol or drug abuse patient.[facility] HospitalIn the event this information is protected by the Federal Confidentiality of Alcohol and Drug Abuse Patient Records regulations: The Federal rules restrict any use of the information to criminally investigate or prosecute any alcohol or drug abuse patient.[facility] HospitalIn the event this information is protected by the Federal Confidentiality of Alcohol and Drug Abuse Patient Records regulations: The Federal rules restrict any use of the information to criminally investigate or prosecute any alcohol or drug abuse patient.[facility] HospitalIn the event this information is protected by the Federal Confidentiality of Alcohol and Drug Abuse Patient Records regulations: The Federal rules restrict any use of the information to criminally investigate or prosecute any alcohol or drug abuse patient.[facility] HospitalIn the event this information is protected by the Federal Confidentiality of Alcohol and Drug Abuse Patient Records regulations: The Federal rules restrict any use of the information to criminally investigate or prosecute any alcohol or drug abuse patient.[facility] HospitalIn the event this information is protected by the Federal Confidentiality of Alcohol and Drug Abuse Patient Records regulations: The Federal rules restrict any use of the information to criminally investigate or prosecute any alcohol or drug abuse patient.[facility] HospitalIn the event this information is protected by the Federal Confidentiality of Alcohol and Drug Abuse Patient Records regulations: The Federal rules restrict any use of the information to criminally investigate or prosecute any alcohol or drug abuse patient.[facility] Reason for Visit (unrecogniz ed section and content) Reason Comments Medication Question Reason Comments Medication affect Reason Comments Neck Pain Reason Comments PT Eval Patient Education Specialty Diagnoses / Procedures Referred By Contac t Referred To Contact [facility] Diagnoses Neck pain Procedures CONSULT TO PHYSICAL THERAPY PHYSICAL THERAPY EVALUATION HIGH COMPLEX 45 MINS Lorna Zavala APRN.SUPERVISOR RESIDENTIAL [address] [place] [address] [facility] [place] [address] [place] [address] Referral ID Status Reason Start Date Expiration Date Visits Requested Visits Authorized [id number] Authorized Auto-Generat ed Referral 08/23/2021 08/22/2022 30 30 Reason Comments Pain (LT) foot x1 week Pt reported cut on metal garden stake pain rated 2 Reason Comments Fall Pt reported fall dipika [facility] earlier today (RT) knee pain, injury to chin, bilateral hands, denied chest pain, SOB. Reason Onset Date Comments Refill Request 05/15/2022 Reason Comments New Fracture Specialty Diagnoses / Procedures Referred By Contac t Referred To Contact Orthopedics Diagnoses Fall, initial encounter Procedures CONSULT TO ORTHOPAEDICS OFFICE/OUTPATIENT NEW HIGH MDM 60-74 MINUTES Mary Grace Patton APRN.SUPERVISOR RESIDENTIAL [address] [place] [address] Referral ID Status Reason Start Date Expiration Date Visits Requested Visits Authorized [id number] Pending Review PCP Requested Referral 04/30/2022 04/30/2023 1 1 Reason Comments Established Patient Xray 06/19/22 Follow Up Xray 06/19/22 Fracture Xray 06/19/22 Reason Comments Orders Reason Comments Yearly Exam Reason Comments Sinus Problem sinus pressure, drai nage, cough and sore throat x 2 days Reason Onset Date Comments Refill Request 05/30/2023 Reason Comments reoved a deer tick yesterday did have a round red marito arou Reason Onset Date Comments Refill Request 05/29/2024 Reason Comments Left Hip Pain sciatica x 2 months Reason Comments Problem Visit Care Teams (unrecognized sec tion and content) Humanities Coordinator Relationship Specialty Start Date End Date Cabral, Nathanael L, DO [address] [place] [address] PCP - General Family Practice 06/17/16 Humanities Coordinator Relationship Specialty Start Date End Date Nathanael Cabral, DO [address] [place] [address] PCP - General Family Practice 06/17/16 Humanities Coordinator Relationship Specialty Start Date End Date Nathanael Cabral, DO [address] [place] [address] PCP - General Family Practice 06/17/16 Humanities Coordinator Relationship Specialty Start Date End Date Nathanael Cabral, DO [address] [place] [address] PCP - General Family Practice 06/17/16 Humanities Coordinator Relationship Specialty Start Date End Date Nathanael Cabral, DO [address] [place] [address] PCP - General Family Medicine 06/17/16 Humanities Coordinator Relationship Specialty Start Date End Date Nathanael Cabral, DO [address] [place], [place] [address] PCP - General Family Medicine 06/17/16 Humanities Coordinator Relationship Specialty Start Date End Date Nathanael Cabral, DO [address] [place] [address] PCP - General Family Medicine 06/17/16 Humanities Coordinator Relationship Specialty Start Date End Date Nathanael Cabral, DO [address] [place] [address] PCP - General Family Medicine 06/17/16 Humanities Coordinator Relationship Specialty Start Date End Date Nathanael Cabral, DO [address] [place] [address] PCP - General Family Medicine 06/17/16 Humanities Coordinator Relationship Specialty Start Date End Date Nathanael Cabral, DO [address] [place] [address] PCP - General Family Medicine 06/17/16 Humanities Coordinator Relationship Specialty Start Date End Date Nathanael Cabral, DO [address] [place] [address] PCP - General Family Medicine 06/17/16 Humanities Coordinator Relationship Specialty Start Date End Date Nathanael Cabral, DO [address] [place] [address] PCP - General Family Medicine 06/17/16 Humanities Coordinator Relationship Specialty Start Date End Date Nathanael Cabral, DO [address] [place] [address] PCP - General Family Medicine 06/17/16 Humanities Coordinator Relationship Specialty Start Date End Date Nathanael Cabral, DO [address] [place] [address] PCP - General Family Medicine 06/17/16 Humanities Coordinator Relationship Specialty Start Date End Date Nathanael Cabral, DO [address] [place] [address] PCP - General Family Medicine 06/17/16 Team Status: Active Member Role Status Dates Dr. Nathanael Cabral DO Family Provider Active Dr. Nathanael Cabral , DO Primary Care Provider Active Team Status: Inactive Member Role Status Dates Dr. Nathanael Cabral DO Primary Care Provider, Referr ing Provider Active Gema BECKFORD, PA Attending Provider Active Team Status: Active Member Role Status Dates Dr. Nathanael Cabral DO Primary Care Provider Active Gema BECKFORD, PA Referring Provider, Other Provider Active Dr. Sukumar Becerra MD Attending Provider Active Team Status: Inactive Member Role Status Dates Dr. Nathanael Cabral DO Primary Care Provider Active Gema BECKFORD, PA Attending Provider, Referr ing Provider Active Humanities Coordinator Relationship Specialty Start Date End Date Nathanael Cabral, DO [address] [place] [address] PCP - General Family Medicine 06/17/16 Humanities Coordinator Relationship Specialty Start Date End Date Nathanael Cabral, DO [address] [place] [address] PCP - General Family Medicine 06/17/16 Humanities Coordinator Relationship Specialty Start Date End Date Nathanael Cabral, DO [address] [place] [address] PCP - General Family Medicine 06/17/16 Humanities Coordinator Relationship Specialty Start Date End Date Nathanael Cabral DO [address] [place] [address] PCP - General Family Medicine 06/17/16 Humanities Coordinator Relationship Specialty Start Date End Date Nathanael Cabral, [address] [place] [address] PCP - General Family Medicine 06/17/16 Humanities Coordinator Relationship Specialty Start Date End Date Nathanael Cabral, [address] [place] [address] PCP - General Family Medicine 06/17/16 Humanities Coordinator Relationship Specialty Start Date End Date Nathanael Cabral DO [address] [place] [address] PCP - General Family Medicine 06/17/16 Humanities Coordinator Relationship Specialty Start Date End Date Nathanael Cabral, DO [address] [place] [address] PCP - General Family Medicine 06/17/16 Humanities Coordinator Relationship Specialty Start Date End Date Nathanael Cabral, DO [address] [place] [address] PCP - General Family Medicine 06/17/16 Humanities Coordinator Relationship Specialty Start Date End Date Nathanael Cabral DO [address] [place] [address] PCP - General Family Medicine 06/17/16 Humanities Coordinator Relationship Specialty Start Date End Date Nathanael Cabral, [address] [place] [address] PCP - General Family Medicine 06/17/16 Humanities Coordinator Relationship Specialty Start Date End Date Nathanael Cabral, [address] [place] [address] PCP - General Family Medicine 06/17/16 Preeti Badillo, IT TECHNICAL SPECIALIST.SUPERVISOR RESIDENTIAL [address] [place] [address] Ent Nurse Family [facility] 07/30/24 Lorna Zavala, IT TECHNICAL SPECIALIST.SUPERVISOR RESIDENTIAL [address] [place] [address] Ent Nurse Family Medicine 07/30/24 Humanities Coordinator Relationship Specialty Start Date End Date Nathanael Cabral DO [address] [place] [address] PCP - General Family Medicine 06/17/16 Preeti Badillo, IT TECHNICAL SPECIALIST.SUPERVISOR RESIDENTIAL [address] [place] [address] Ent Nurse Family [facility] 07/30/24 SallyLorna, IT TECHNICAL SPECIALIST.SUPERVISOR RESIDENTIAL [address] [place] [address] [facility] 07/30/24 Humanities Coordinator Relationship Specialty Start Date End Date Nathanael Cabral DO [address] [place] [address] PCP - General Family Medicine 06/17/16 Preeti Badillo, IT TECHNICAL SPECIALIST.SUPERVISOR RESIDENTIAL [address] [place] [address] [facility] SallyLorna, IT TECHNICAL SPECIALIST.SUPERVISOR RESIDENTIAL [address] [place] [address] [facility] 07/30/24 Humanities Coordinator Relationship Specialty Start Date End Date Nathanael Cabral DO [address] [place] [address] PCP - General Family Medicine 06/17/16 SallyLorna, IT TECHNICAL SPECIALIST.SUPERVISOR RESIDENTIAL [address] [place] [address] [facility] 07/30/24 Humanities Coordinator Relationship Specialty Start Date End Date Nathanael Cabral DO [address] [place] [address] PCP - General Family Medicine 06/17/16 SallyLorna, IT TECHNICAL SPECIALIST.SUPERVISOR RESIDENTIAL [address] [place] [address] [facility] Family [facility] 07/30/24 Kerry Pollard, IT TECHNICAL SPECIALIST.SUPERVISOR RESIDENTIAL [address] [place] [address] Ent Nurse Family Medicine 02/05/25 Team Status: Active Member Role Status Dates Dr. Nathanael Cabral DO Primary Care Provider Active Team Status: Inactive Member Role Status Dates Dr. Nathanael Cabral DO Primary Care Provider Active Start: February 13, 2025 End: February 13, 2025 Dr. Nathanael Cabral DO Referring Provider Active Start: February 13, 2025 End: February 13, 2025 Dr. Sukumar Becerra MD Attending Provider Active S tart: February 13, 2025 End: February 13, 2025 Goals (unrecognized section and content) Goals may be documented in a n alternate sectionGoals may be documented in an alternate sectionGoals may be documented in an alternate sectionGoals may be documented in an alternate section FOR RECORDS PERTAINING TO PATIENTS WHO ARE OR HAVE BEEN ENROLLED IN A CHEMICAL DEPENDENCY/SUBSTANCEABUSE PROGRAM, SOME INFORMATION MAY BE OMITTED. This clinical summary was aggregated from multiple sources. Caution should be exercised in using it in the provision of clinical care. This summary normalizes information from multiple sources, and as a consequence, information in this document may materially change the coding, format and clinical context of patient data. In addition, data may be omitted in some cases. CLINICAL DECISIONS SHOULD BE BASED ON THE PRIMARY CLINICAL RECORDS. [facility] [facility]. provides no warranty or guarantee of the accuracy or completeness of information in this document.
--- NOTE | 2025-08-14 10:08 | NEURO ---
NCS and/or EMG Patient Report Ordering Doctor: carmel ruiz DATE OF SERVICE: 08/14/25 Clinical Summary: 65 year old female patient with symptoms of discomfort and spasms in the right wrist/forearm. Nerve Conduction Studies Summary: Nerve conduction studies performed in the right upper extremity were normal. Needle Examination Summary: Needle examination of select muscles of the right upper extremity was normal. Impression: This is a normal study. There is no electrodiagnostic evidence of a right median mononeuropathy, right ulnar mononeuropathy, or cervical radiculopathy. Multi Select Codes Neurology Neurology Interp Codes: 23093-40 Musc test done w/n test comp (interp) (1) and 09062-27 Nrv cndj test 7-8 studies (interp)
== END | disposition home or self-care (01) ==
LOC: PSN 08:18
PROVIDERS: PCP Student in an Organized Health Care Education/Training Program; Referring Provider Nurse Practitioner Primary Care; Visit Provider Nurse Practitioner Primary Care
DX: R25.2 Cramp and spasm (principal); M77.8 Other enthesopathies, not elsewhere classified; M25.531 Pain in right wrist
CPT/HCPCS: 95886; 95910